=== PATIENT | female | born 1955 | race Caucasian/White ===

== ENCOUNTER → 2018-02-14 | Outpatient (CLI) | payer OTHER ==
--- NOTE | 2018-02-14 16:34 | CTL ---
EXAMINATION TYPE: CT Low Dose Lung DATE OF EXAM ORDERED: 02/14/2018 HISTORY: Long-term tobacco use. Lung cancer screening CT DLP: [address] CTDI: 1.76 mGy Automated exposure control for dose reduction was used. SCREENING VISIT: Initial study COMPARISON: Chest CT June 11, 2016 TECHNIQUE: Low dose computed tomography scan was performed through the chest at 1 mm thick sections and reconstructed images in the coronal plane at [address] DIAGNOSTIC QUALITY: Satisfactory FINDINGS: LUNG NODULES: None. LUNGS: COPD: Severity: Moderate Fibrosis: Severity: There is linear scarring in the right lower lobe redemonstrated Lymph nodes: None Other findings: None BILATERAL PLEURAL SPACE: Effusion: None Calcification: None Thickening: None Pneumothorax: None HEART: Heart Size: Normal Coronary calcification: None Pericardial effusion: None OTHER FINDINGS: Upper abdomen: No suspicious findings seen. Bony thorax: Persistent mild compression fracture deformity T12 level stable. Supraclavicular region: None Other: None IMPRESSION: Moderate emphysematous change without suspicious nodules. FOLLOW UP CT CHEST RECOMMENDATION: Annual low-dose lung screening CT CT LUNG RAD: Lung-Rad 1 Negative
== END | disposition home or self-care (01) ==
LOC: RADCTMAIN 16:03
PROVIDERS: ATTEND Internal Medicine Geriatric Medicine
DX: Z12.2 Encounter for screening for malignant neoplasm of respiratory organs (principal); J43.9 Emphysema, unspecified; Z87.891 Personal history of nicotine dependence

== ENCOUNTER 2018-09-07 22:00 | Emergency (ER) | payer OTHER ==
[2018-09-07 22:12] VITALS: BP 152/100; PULSE 78; RESP 16; TEMP 98.2
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
--- NOTE | 2018-09-07 22:33 | XR ---
EXAMINATION TYPE: XR foot complete LT DATE OF EXAM: 09/07/2018 COMPARISON: NONE HISTORY: Foot pain TECHNIQUE: 3 views FINDINGS: Metatarsals appear intact. I see no fracture nor dislocation. Joint spaces are fairly jerry l. IMPRESSION: No acute abnormality of the left foot.
== END 2018-09-07 22:51 | disposition home or self-care (01) ==
LOC: EC 22:00
DX: S90.32XA Contusion of left foot, initial encounter (principal); F17.200 Nicotine dependence, unspecified, uncomplicated; W20.8XXA Other cause of strike by thrown, projected or falling object, initial encounter
CPT/HCPCS: 99283

== ENCOUNTER 2022-03-20 18:31 | Inpatient (IN) | payer MEDICARE ==
--- NOTE | 2022-03-20 21:49 | XR ---
EXAMINATION TYPE: XR chest 2V DATE OF EXAM: 03/20/2022 9:08 PM COMPARISON: CT chest 02/14/2018. TECHNIQUE: XR chest 2V Frontal and lateral views of the chest. CLINICAL INDICATION:Female, 66 years old with history of shortness of breath, known right hilar mass; FINDINGS: Lungs/Pleura: There is flattening of the diaphragm with increased lucency of the lungs. No evidence o f pneumothorax, pleural effusion or focal consolidation. Pulmonary vascularity: Unremarkable. Heart/mediastinum: Cardiomediastinal silhouette is unremarkable. There is increased fullness of the r ight pulmonary hilum consistent with provided history of known mass. Musculoskeletal: No acute osseous pathology. IMPRESSION: 1. No acute cardiopulmonary disease process. 2. Right pulmonary hilum mass 3. COPD changes.
[2022-03-20 21:50] LABS: Basophils # (A) 0.1 k/uL (0-0.2); Basophils % (A) 1 %; Eosinophils # (A) 0.2 k/uL (0-0.7); Eosinophils % (A) 3 %; HGB 13.2 gm/dL (11.4-16.0); Lymphocytes # (A) 1.3 k/uL (1.0-4.8); Lymphocytes % (A) 16 %; MCH 31.6 pg (25.0-35.0); MCHC 31.4 g/dL (31.0-37.0); MCV 100.5 fL (80.0-100.0); Mean Platelet Volume 8.3; Monocytes # (A) 0.4 k/uL (0-1.0); Monocytes % (A) 5 %; Neutrophils # (A) 5.8 k/uL (1.3-7.7); Neutrophils % (A) 73 %; Platelet Count 294 k/uL (150-450); RBC 4.18 m/uL (3.80-5.40); RDW 12.1 % (11.5-15.5)
[2022-03-20 22:06] LABS: ALT 18 U/L (4-34); AST 33 U/L (14-36); African American GFR (CKD) >90 (>60 ml/min/1.73 sqM); Albumin 3.7 g/dL (3.5-5.0); Alkaline Phosphatase 102 U/L (38-126); Anion Gap 5 mmol/L; Blood Urea Nitrogen 13 mg/dL (7-17); Calcium 9.2 mg/dL (8.4-10.2); Carbon Dioxide 28 mmol/L (22-30); Chloride 104 mmol/L (98-107); Glucose 92 mg/dL (74-99); Magnesium 2.1 mg/dL (1.6-2.3); Non-African American GFR(CKD) >90 (>60 ml/min/1.73 sqM); Phosphorus 3.3 mg/dL (2.5-4.5); Potassium 4.4 mmol/L (3.5-5.1); Sodium 137 mmol/L (137-145); Total Bilirubin 0.7 mg/dL (0.2-1.3); Total Protein 6.8 g/dL (6.3-8.2)
--- NOTE | 2022-03-20 22:52 | ED ---
SOB HPI - General Chief Complaint: Recheck/Abnormal Lab/Rx Stated Complaint: Refered Mass on Lungs Time Seen by Provider: 03/20/22 20:10 Source: patient, family, RN notes reviewed Mode of arrival: wheelchair Limitations: no limitations - History of Present Illness Initial Comments: This is a 66-year-old female who presents to the emergency department with shortness of breath and mass in her lung. She was recently in [place] and went to the emergency department there on 03/18 for generalized weakness and shortness of breath. Workup revealed a mediastinal mass with concern for the development of SVC syndrome. They had advised she either staying in [place] for admission or return to [place] for evaluation in the emergency department. She returned from [place] yesterday. Patient states that breathing is difficult when lying down. She does also get daily headaches that she treats with oxycodone. CT Chest w/contrast 03/18/2022 (taken in [place]): "There is a hilar mass that is infiltrating nearly the entire mediastinum. The mass is encasing multiple vessels primarily on the right. The right upper lobe as well as the bronchus intermedius is narrowed significantly. The mass does extend to the left side and encases the pulmonary veins. There is significant compression of the collateral vessels concerning for development of superior vena cava syndrome." MD Complaint: shortness of breath, cough Worsens With: lying flat - Related Data Home Medications Medication Instructions Recorded Confirmed HYDROcodone/APAP 5-325MG [[place] 1 tab PO Q6H PRN 03/20/22 03/20/22 5-325] Allergies Allergy/AdvReac Type Severity Reaction Status Date / Time No Known Allergies Allergy Verified 03/20/22 22:13 Review of Systems ROS Statement: Those systems with pertinent positive or pertinent negative responses have been documented in the HPI. ROS Other: All systems not noted in ROS Statement are negative. Constitutional: Denies: fever, chills ENT: Denies: ear pain, throat pain Respiratory: Reports: cough, dyspnea Cardiovascular: Denies: chest pain, palpitations Endocrine: Reports: fatigue Gastrointestinal: Denies: abdominal pain, nausea, vomiting, diarrhea Musculoskeletal: Denies: back pain Skin: Denies: rash Neurological: Reports: headache Past Medical History Past Medical History: No Reported History Additional Past Medical History / Comment(s): lung mass History of Any Multi-Drug Resistant Organisms: None Reported Additional Past Surgical History / Comment(s): ovary removed Past Psychological History: No Psychological Hx Reported Smoking Status: Current every day smoker Past Alcohol Use History: Occasional Past Drug Use History: None Reported General Exam Limitations: no limitations General appearance: alert, in no apparent distress Neck exam: Present: other (Prominent neck veins.) Respiratory exam: Present: normal lung sounds bilaterally, other (Prominent chest veins.). Absent: respiratory distress, wheezes, rales, rhonchi, stridor Cardiovascular Exam: Present: regular rate, normal rhythm, normal heart sounds. Absent: systolic murmur, diastolic murmur, rubs, gallop, clicks GI/Abdominal exam: Present: other (Diffuse prominent abdominal veins) Neurological exam: Present: alert, oriented X3, CN II-XII intact Psychiatric exam: Present: normal affect, normal mood Skin exam: Present: warm, dry, intact, normal color. Absent: rash Course Vital Signs 03/20/22 19:10 Temperature 98.8 F Pulse Rate 82 Respiratory 16 Rate Blood Pressure 127/81 O2 Sat by Pulse 96 Oximetry Medical Decision Making - Medical Decision Making This is a 66-year-old female who presents to the emergency department for a known lung mass. CBC and CMP obtained which were unremarkable. Chest x-ray did not demonstrate any changes from the [place] imaging that was taken 2 days ago. Given the prominence of neck, chest, and abdominal veins, the shortness of breath, and headaches, there is concern for SVC syndrome, which was mentioned on prior computed tomography scan of the chest from 03/18. I spoke with Dr. Cooper regarding the patient. He advised I speak with Dr. Luque regarding admission versus discharge for the patient. Dr. Luque advised admission and requested repeat imaging of the chest and imaging of the brain, as well as oncology and pu lmonary consult. This case was discussed in detail with the attending ED physician. Presentation, findings, and treatment plan discussed in detail as well. - Lab Data Result diagrams: 03/20/22 21:43 03/20/22 21:43 Lab Results 03/20/22 03/20/22 03/20/22 Range/Units 21:43 21:43 21:43 WBC 8.0 (3.8-10.6) k/uL RBC 4.18 (3.80-5.40) m/uL Hgb 13.2 (11.4-16.0) gm/dL Hct 42.0 (34.0-46.0) % MCV 100.5 H (80.0-100.0) fL MCH 31.6 (25.0-35.0) pg MCHC 31.4 (31.0-37.0) g/dL RDW 12.1 (11.5-15.5) % Plt Count 294 (150-450) k/uL MPV 8.3 Neutrophils % 73 % Lymphocytes % 16 % Monocytes % 5 % Eosinophils % 3 % Basophils % 1 % Neutrophils # 5.8 (1.3-7.7) k/uL Lymphocytes # 1.3 (1.0-4.8) k/uL Monocytes # 0.4 (0-1.0) k/uL Eosinophils # 0.2 (0-0.7) k/uL Basophils # 0.1 (0-0.2) k/uL Sodium 137 (137-145) mmol/L Potassium 4.4 (3.5-5.1) mmol/L Chloride 104 (98-107) mmol/L Carbon Dioxide 28 (22-30) mmol/L Anion Gap 5 mmol/L BUN 13 (7-17) mg/dL Creatinine 0.62 (0.52-1.04) mg/dL Est GFR (CKD-EPI)AfAm >90 (>60 ml/min/1.73 sqM) Est GFR (CKD-EPI)NonAf >90 (>60 ml/min/1.73 sqM) Glucose 92 (74-99) mg/dL Plasma Lactic Acid [place] 1.5 (0.7-2.0) mmol/L Calcium 9.2 (8.4-10.2) mg/dL Phosphorus 3.3 (2.5-4.5) mg/dL Magnesium 2.1 (1.6-2.3) mg/dL Total Bilirubin 0.7 (0.2-1.3) mg/dL AST 33 (14-36) U/L ALT 18 (4-34) U/L Alkaline Phosphatase 102 (38-126) U/L Total Protein 6.8 (6.3-8.2) g/dL Albumin 3.7 (3.5-5.0) g/dL - Radiology Data Radiology results: report reviewed, image reviewed Disposition Clinical Impression: SVC syndrome, Hilar mass Disposition: ADMITTED IP TO THIS [facility] Referrals: Stephan Luque MD [Primary Care Provider] - 1-2 days
[2022-03-20] MEDS ORDERED: ONDANSETRON 4 MG/2 ML VIAL IVP PRN (23:40)
[2022-03-20] MEDS ORDERED: ACETAMINOPHEN TAB 325 MG TAB PO PRN (23:40)
[2022-03-20] MEDS ORDERED: NALOXONE 0.4 MG/ML 1 ML VIAL IV PRN (23:40)
[2022-03-20] MEDS ORDERED: HYDROmorphone 1 MG/ML 1 ML SYRINGE IVP PRN (23:40)
[2022-03-20] MEDS ORDERED: KETOROLAC 15 MG/ML 1 ML VIAL IVP STA (23:43)
[2022-03-20] MEDS ORDERED: RX INFO: IV CONTRAST WAS GIVEN 1 EACH MISC MISCELLANE PRN (23:45)
--- NOTE | 2022-03-21 00:33 | CT ---
EXAMINATION TYPE: CT chest w con DATE OF EXAM: 03/21/2022 COMPARISON: 03/18/2022 HISTORY: Lung Mass CT DLP: 164.4 mGycm Automated exposure control for dose reduction was used. CONTRAST: Performed with IV Contrast, patient injected with 100ml mL of Isovue 300. Images obtained from the thoracic inlet to the diaphragm without IV contrast. There is diffuse pulmonary emphysema. There is large mediastinal and right paratracheal mass which me asures 7 x 6.5 cm. The length is 9.5 cm. There are collateral veins with apparent complete obstructio n of the superior vena cava. There is posterior paraspinal veins filling the azygos vein. There is so me encasement of the right pulmonary artery. The thoracic aorta is intact. No aneurysm or dissection. Ascending aorta measures 3.6 cm. There is a 3 x 2 cm masslike infiltrate at the right posterior lung base. There is mild subsegmental atelectasis at the lung bases. Heart size is normal. No pericardial effusion. The thoracic vertebra have normal alignment. There is a T12 anterior wedging 35% that appears old. Th e sternum is intact. No evidence of filling defect in the pulmonary arteries. I see no focal bone angel truction. IMPRESSION: Large mediastinal mass encasing the right pulmonary artery and complete obstruction of the superior v shy cava. Collateral venous drainage. Mass extends into the subcarinal region and superiorly to the t op of the aortic arch. No evidence of pulmonary embolism. Mass is not changed compared to recent exam . There is some oval-shaped infiltrate right lower lobe posteriorly which is increased compared to the recent exam of 03/18/2022 and could be some atelectasis or pneumonia. Pulmonary emphysema.
--- NOTE | 2022-03-21 00:36 | CT ---
EXAMINATION TYPE: CT brain w con DATE OF EXAM: 03/21/2022 COMPARISON: 11/07/2012 HISTORY: Lung mass CT DLP: 1080.4 mGycm Automated exposure control for dose reduction was used. CONTRAST: Performed with IV Contrast, patient injected with 100 mL of Isovue 300. Ventricles have fairly normal size. There is no mass effect or midline shift. There is no sign of int racranial hemorrhage. There is no pathologic enhancement. There is a small corpus callosum. No eviden ce of posterior fossa mass. 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 No acute intracranial abnormality. No c hange.
[2022-03-21] MEDS ORDERED: HYDROcodone/APAP 5-325MG 1 EACH TAB PO PRN (06:01)
--- NOTE | 2022-03-21 10:37 | P.CNPUL ---
History of Present Illness Consult date: 03/21/22 Requesting physician: Stephan Luque Reason for consult: dyspnea, abnormal CXR/CT Chief complaint: Shortness of breath, chest pain History of present illness: This is a very pleasant 66-year-old female patient who follows with Dr. Luque as her primary care provider. She has no significant past medical history. No home medications. She does have chronic and ongoing tobacco dependence of 50 years, occasional alcohol use. While in [place] she developed shortness of breath and chest discomfort and was seen in the emergency room and a computed tomography scan of the chest revealed a large mediastinal mass and concern for SVC syndrome. She chose to come home to [place] for further evaluation. She was seen in the emergency room last evening. Chest x-ray revealed no acute cardiopulmonary process. There is a right pulmonary hilar mass. COPD changes. 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 Collateral venous drainage. Mass extends into the subcarinal region and superiorly to the top of the aortic arch. No evidence of pulmonary embolism. There is some oval shaped infiltrate at the right lower lobe posteriorly could be atelectasis versus pneumonia. Evidence of emphysema. Computed tomography scan of the brain reveals evidence of partial agenesis of th e corpus callosum. No acute intracranial abnormalities. No evidence of metastasis. White count 8.0. Hemoglobin 13.2. MCV 100.5. Sodium 137. Potassium 4.4. BUN 13. Creatinine 0.62. AST 33. ALT 18. The patient is seen today in consultation in the emergency department. She is currently sitting up in bed. Awake and alert in no acute distress. She does have some chest tightness more so on deep inhalation. She has engorged veins of the abdomen and chest and neck. She is maintaining good O2 saturations in the 90s on room air. She's been afebrile. She does admit to approximately 20 pound weight loss in the past year or more so on the past several months. She denies any hemoptysis. Review of Systems REVIEW OF SYSTEMS: CONSTITUTIONAL: Denies any recent significant weight loss or weight gain. EYES: Denies change in vision. EARS, NOSE, MOUTH, THROAT: Denies headaches, denies sore throat. CARDIOVASCULAR: Positive for chest tightness, no palpitations or syncopal episodes. RESPIRATORY: Positive for shortness of breath, cough, no congestion or hemoptys is. GASTROINTESTINAL: Denies change in appetite, denies abdominal pain GENITOURINARY: Denies hematuria, denies infections. MUSKULOSKELETAL: Denies pain, denies swelling. INTEGUMENTARY: Positive for engorged veins on the neck, chest, abdomen. Denies rash, denies eczema. NEUROLOGICAL: Denies recent memory loss, no recent seizure activity. PSYCHIATRIC: Denies anxiety, denies depression. HEMATOLOGIC/LYMPHATIC: Denies anemia, denies enlarged lymph nodes. Past Medical History Past Medical History: No Reported History Additional Past Medical History / Comment(s): lung mass History of Any Multi-Drug Resistant Organisms: None Reported Additional Past Surgical History / Comment(s): ovary removed Past Psychological History: No Psychological Hx Reported Smoking Status: Current every day smoker Past Alcohol Use History: Occasional Past Drug Use History: None Reported Medications and Allergies Home Medications Medication Instructions Recorded Confirmed Type HYDROcodone/APAP 5-325MG [[place] 1 tab PO Q6H PRN 03/20/22 03/20/22 History 5-325] DULoxetine HCL [Cymbalta] 30 mg PO DAILY 03/21/22 03/21/22 History busPIRone HCl [Buspar] 10 mg PO BID 03/21/22 03/21/22 History Allergies Allergy/AdvReac Type Severity Reaction Status Date / Time No Known Allergies Allergy Verified 03/20/22 22:13 Physical Exam Vitals: Vital Signs Temp Pulse Resp BP Pulse Ox 03/21/22 06:32 63 18 133/83 98 03/21/22 00:48 97.8 F 84 16 130/81 94 L 03/20/22 19:10 98.8 F 82 16 127/81 96 Intake and Output 03/20/22 03/21/22 03/21/22 22:59 06:59 14:59 Other: Weight 39.009 kg GENERAL EXAM: Alert, active, very pleasant 66-year-old female patient, on room air, fairly comfortable in no apparent distress. HEAD: Normocephalic. EYES: Normal reaction of pupils, equal size. NOSE: Clear with pink turbinates. THROAT: No erythema or exudates. NECK: Engorged neck veins. CHEST: Engorged chest veins. No chest wall deformity. LUNGS: Equal air entry with no crackles, wheeze, rhonchi or dullness. CVS: S1 and S2 normal with no audible murmur, regular rhythm. ABDOMEN: Engorged abdominal veins. No hepatosplenomegaly, normal bowel sounds, no guarding or rigidity. SPINE: No scoliosis or deformity SKIN: No rashes CENTRAL NERVOUS SYSTEM: No focal deficits, tone is normal in all 4 extremities. EXTREMITIES: There is no peripheral edema. No clubbing, no cyanosis. Peripheral pulses are intact. 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 Collateral venous drainage. Mass extends into the subcarinal region and superiorly to the top of the aortic arch. No pulmonary embolism. Oval-shaped infiltrate of the right lower lobe posteriorly possible atelectasis. 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, chest and abdominal veins 3 Chronic and ongoing dependence of 50 years 4 Occasional alcohol use 5 Weight loss Plan: The patient was seen and evaluated Chest x-ray, CAT scans and labs reviewed Suspect small cell lung cancer Bronchoscopy with biopsies and fine-needle aspirate tomorrow Plan was discussed in detail with both the patient and her family who is present at the bedside Initiated on Decadron Heparin for DVT prophylaxis Dilaudid, Toradol for pain control Protonix for GI prophylaxis Nothing by mouth after midnight Possibly home after biopsies tomorrow We will continue to follow make further recommendations based on her clinical status I have personally seen and examined the patient, performed the documentation and the assessment and plan as written. Number of minutes spent on the visit: 20.
--- NOTE | 2022-03-21 10:48 | P.HPIM ---
History of Present Illness H&P Date: 03/21/22 HISTORY OF PRESENT ILLNESS This is a 66-year-old female patient of Dr. Luque with past medical history of COPD, tobacco use and dependence, recurrent depression and generalized anxiety disorder. In January 2018, patient underwent low-dose CAT scan which revealed moderate emphysematous change without suspicious nodules. Patient was to have a repeat of this but due to Covid she failed to follow-up. She is now in [place] for the past 4 months and started developing significant pain in her chest and shoulders along with a dry cough, headache, right-sided earache as well as nausea and diarrhea. She went to a clinic in [place] and was told that she had a mass in her lungs and that she needed to get into specialist as soon as possible. On Saturday she went to the emergency center and underwent a CAT scan of the chest and was told that she had cancer in her lung and wanted to admit the patient but she refused as she preferred to return home to see her own physician. Patient also has had 10 pounds of weight loss over the past month. She has also developed "varicose veins" through her abdomen and chest. Patient presented to [facility] emergency center for evaluation. Patient was found to be afebrile, heart rate 82, blood pressure 127/81, pulse ox 96% on room air. CBC was unremarkable. CMP unremarkable. Magnesium 2.1. Chest x-ray revealed no acute cardio pulmonary disease process. Right pulmonary hilum mass. COPD changes. 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 No acute intracranial abnormality. 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 Collateral venous drainage. Mass extends into the subcarinal region and superiorly to the top of the aortic arch. No evidence of pulmonary embolism. There is some oval shaped infiltrate right lower lobe serially which is increased compared to 03/18 a nd could be some atelectasis or pneumonia. Patient is seen today in the emergency center waiting for a bed on the [facility] floor, consult with pulmonary medicine and oncology. Patient is scheduled for bronchoscopy with biopsy with Dr. Figueroa tomorrow. REVIEW OF SYSTEMS Constitutional: No fever, no chills, no night sweats. Reports weight loss. Reports weakness, reports fatigue no lethargy. No daytime sleepiness. EENT: No headache. No blurred vision or double vision, no loss of vision. No loss of Hearing, no ringing in the ears, no dizziness. No nasal drainage or congestion. No epistaxis. No sore throat. Lungs: Reports shortness of breath, reports cough, no sputum production. No wheezing. Cardiovascular: Reports chest pain, no lower extremity edema. No palpitations. No paroxysmal nocturnal dyspnea. No orthopnea. No lightheadedness or dizziness. No syncopal episodes. Abdominal: No abdominal pain. Reports nausea, no vomiting. Reports diarrhea. No constipation. No bloody or tarry stools. No loss of appetite. Genitourinary: No dysuria, increased frequency, urgency. No urinary retention. Musculoskeletal: No myalgias. No muscle weakness, no gait dysfunction, no frequent falls. No back pain. No neck pain. Integumentary: No wounds, no lesions. No rash or pruritus. No unusual bruising. No change in hair or nails. Neurologic: No aphasia. No facial droop. No change in mentation. No head injury. No headache. No paralysis. No paresthesia. Psychiatric: No depression. No anxiety. No mood swings. Endocrine: No abnormal blood sugars. No weight change. No excessive sweating or thirst. No cold intolerance. SOCIAL HISTORY Patient is a smoker of half a pack a day for 50 years plus. She drinks alcohol couple times per week. She denies any marijuana or illicit drug use. She does not have oxygen, nebulizer at home. FAMILY HISTORY Mother at age 94 from old age. Father at age 89 with history of COPD and coronary artery disease. Patient has 6 siblings and one brother from acute alcohol poisoning. One sister was diagnosed with myocardial infarction at age 67 otherwise other siblings have no major medical problems. Patient has one son with no major medical problems. PHYSICAL EXAMINATION Gen: This is a 66-year-old cachectic-appearing female. She is resting in the ER stretcher and appears to be in no acute respiratory distress. HEENT: Head is atraumatic, normocephalic. Pupils equal, round. Sclerae is anicteric. NECK: Supple. No JVD. No lymphadenopathy. No thyromegaly. LUNGS: Clear to auscultation. No wheezes or rhonchi. No intercostal retractions. No accessory muscle usage. HEART: Regular rate and rhythm. No murmur. Engorged veins throughout the chest and abdomen. ABDOMEN: Soft. Bowel sounds are present. No masses. No tenderness. EXTREMITIES: No pedal edema. No calf tenderness. NEUROLOGICAL: Patient is awake, alert and oriented x3. Cranial nerves 2 through 12 are grossly intact. ASSESSMENT AND PLAN 1. Large mediastinal mass encasing the right pulmonary artery and complete o bstruction of the superior vena cava. Patient is scheduled for bronchoscopy with biopsy tomorrow. Consult with oncology. Patient's been started on Decadron 6 kg IV push every 8 hours, continue Dilaudid or [place] as needed for pain. 2. 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 3. Severe protein calorie malnutrition with recent weight loss and BMI 14. Regular diet plus Ensure twice daily 4. Active tobacco use and dependence. Smoking cessation. 5. GI prophylaxis. Protonix. 6. DVT prophylaxis. Heparin subcu. Patient will be admitted to the hospital for a minimum of 2 night stay. DISCHARGE PLAN TBD. Most likely return home Impression and plan of care have been directed as dictated by the signing physician. Luiza Lewis nurse practitioner acting as scribe for signing physician. Past Medical History Past Medical History: No Reported History Additional Past Medical History / Comment(s): lung mass History of Any Multi-Drug Resistant Organisms: None Reported Additional Past Surgical History / Comment(s): ovary removed Past Psychological History: No Psychological Hx Reported Smoking Status: Current every day smoker Past Alcohol Use History: Occasional Past Drug Use History: None Reported - Past Family History Sister(s) Family Medical History: Myocardial Infarction ([place]) Additional Family Medical History / Comment(s): Sister had a MD at the age of 67yrs. Mother Family Medical History: No Reported History Additional Family Medical History / Comment(s): Mother lived to be 94 yrs old. She was a smoker. Father Family Medical History: Chest Pain / Angina Additional Family Medical History / Comment(s): Father had breathing problems. He lived to be 89yrs old. Medications and Allergies Home Medications Medication Instructions Recorded Confirmed Type HYDROcodone/APAP 5-325MG [[place] 1 tab PO Q6H PRN 03/20/22 03/20/22 History 5-325] DULoxetine HCL [Cymbalta] 30 mg PO DAILY 03/21/22 03/21/22 History busPIRone HCl [Buspar] 10 mg PO BID 03/21/22 03/21/22 History Allergies Allergy/AdvReac Type Severity Reaction Status Date / Time No Known Allergies Allergy Verified 03/20/22 22:13 Physical Exam Vitals: Vital Signs Temp Pulse Resp BP Pulse Ox 03/21/22 06:32 63 18 133/83 98 03/21/22 00:48 97.8 F 84 16 130/81 94 L 03/20/22 19:10 98.8 F 82 16 127/81 96 Intake and Output 03/20/22 03/21/22 03/21/22 22:59 06:59 14:59 Other: Weight 39.009 kg Results CBC & Chem 7: 03/20/22 21:43 03/20/22 21:43 Labs: Abnormal Lab Results - Last 24 Hours (Table) 03/20/22 Range/Units 21:43 MCV 100.5 H (80.0-100.0) fL
--- NOTE | 2022-03-21 11:28 | P.CONS ---
History of Present Illness - Reason for Consult Consult date: 03/21/22 Lung mass Requesting physician: Hilary Bettencourt - Chief Complaint Shortness of breath, chest/neck fullness - History of Present Illness Mrs. Meyer is a very pleasant 66-year-old female we have been asked to see for newly diagnosed lung mass. Patient was initially seen in [place] when her symptoms of shortness of breath and dry cough increased in severity. Misa baptiste lives here so she has returned and came to the ER at the recommendation of ER in [place]. Patient states she's had symptoms for about 2-3 months, consisting of shortness of breath, harsh dry cough, these have persistent and progressed. More recently she has also noted 10 pounds wt loss in one month, occasional dysphagia, voice changes and engorgement of the blood vessels in her chest and abdomen. She's also been experiencing nearly headaches, denies any dizziness or vision changes. Reporting fullness in the right side of the neck, pain in the right shoulder area. She is a half pack per day smoker currently, she denies any exposure history such as asbestos or occupation with use of hazardous materials could be inhaled. Past medical history is otherwise benign. Review of Systems 14 point review of systems is negative except as stated in HPI Past Medical History Past Medical History: No Reported History Additional Past Medical History / Comment(s): lung mass History of Any Multi-Drug Resistant Organisms: None Reported Past Surgical History: Orthopedic Surgery Additional Past Surgical History / Comment(s): ovary removed Past Anesthesia/Blood Transfusion Reactions: No Reported Reaction Past Psychological History: Depression (On medications for) Smoking Status: Current every day smoker (1/2 pack per day) Past Alcohol Use History: Occasional Past Drug Use History: None Reported - Past Family History Sister(s) Family Medical History: Myocardial Infarction ([place]) Additional Family Medical History / Comment(s): Sister had a [place] at the age of 67yrs. Mother Family Medical History: No Reported History Additional Family Medical History / Comment(s): Mother lived to be 94 yrs old. She was a smoker. Father Family Medical History: Chest Pain / Angina Additional Family Medical History / Comment(s): Father had breathing problems. He lived to be 89yrs old. Medications and Allergies Home Medications Medication Instructions Recorded Confirmed Type HYDROcodone/APAP 5-325MG [[place] 1 tab PO Q6H PRN 05/03/22 05/03/22 History 5-325] DULoxetine HCL [Cymbalta] 30 mg PO DAILY 03/21/22 03/21/22 History Dexamethasone 6 mg PO Q8H #90 tablet 03/21/22 Rx busPIRone HCl [Buspar] 10 mg PO BID 03/21/22 03/21/22 History Allergies Allergy/AdvReac Type Severity Reaction Status Date / Time No Known Allergies Allergy Verified 03/20/22 22:13 Physical Exam Vitals: Vital Signs Temp Pulse Resp BP Pulse Ox 03/21/22 06:32 63 18 133/83 98 03/21/22 00:48 97.8 F 84 16 130/81 94 L 03/20/22 19:10 98.8 F 82 16 127/81 96 Intake and Output 03/20/22 03/21/22 03/21/22 22:59 06:59 14:59 Other: Weight 39.009 kg 39.009 kg - Constitutional General appearance: cooperative, no acute distress, thin - EENT Eyes: anicteric sclerae, EOMI ENT: hearing grossly normal, normal oropharynx - Neck Neck: lymphadenopathy (Palpable mass in the right supraclavicular area) - Respiratory Respiratory: right: diminished, bilateral: other (Scattered rhonchi) - Cardiovascular The veins of the chest and abdomen are engorged Rhythm: regular Heart sounds: normal: S1, S2 Abnormal Heart Sounds: no systolic murmur, no diastolic murmur, no rub, no S3 Gallop, no S4 Gallop, no click, no other leg Peripheral Edema: bilateral: None - Gastrointestinal General gastrointestinal: no absent bowel sounds, no decreased bowel sounds, no distended, no hepatomegaly, no hyperactive bowel sounds, normal bowel sounds, no organomegaly, no rigid, no scaphoid, soft, no splenomegaly, no tenderness, no umbilical hernia, no ventral hernia - Neurologic Neurologic: CNII-XII intact (Grossly) - Musculoskeletal Musculoskeletal: strength equal bilaterally - Psychiatric Psychiatric: A&O x's 3, appropriate affect, intact judgment & insight Results CBC & Chem 7: 03/20/22 21:43 03/20/22 21:43 Labs: Abnormal Lab Results - Last 24 Hours (Table) 03/20/22 Range/Units 21:43 MCV 100.5 H (80.0-100.0) fL Chest x-ray: report reviewed CT scan - chest: report reviewed CT Scan - head: report reviewed (Without contrast) Assessment and Plan (1) Hilar mass Current Visit: Yes Status: Acute Priority: High Code(s): R91.8 - OTHER NONSPECIFIC ABNORMAL FINDING OF LUNG FIELD SNOMED Code(s): 107019251 (2) SVC syndrome Current Visit: Yes Status: Acute Priority: High Code(s): I87.1 - COMPRESSION OF VEIN SNOMED Code(s): 96327144 Plan: Dr. Alcala discussed with the patient concerning findings for malignancy. I explained that tissue biopsy is necessary for diagnosis. Imaging will also be required to show the extent of disease. Once these things are known, plan of care can be discussed with patient. Patient has been started on dexamethasone 6 mg IV every 8. Oral steroids will continue in the outpatient setting. PPI, prophylaxis steroid-induced gastritis. Pulmonary has been consulted for biopsy. MRI of the brain ordered for lung mass and complaints of daily headaches. Plan for staging PET scan outpatient. Follow-up with Dr. Alcala Informed patient that we will be contacting her with further appointments. Doctor attests: I performed a history and physical examination of this patient, developed impression and plan of care. Discussed with dictator. I agree with dictators note, documented as a scribe.
[2022-03-21] MEDS: HEPARIN SODIUM,PORCINE/PF 5,000 UNIT/0.5 ML SYRINGE SQ SCH ×2 (11:35→20:13)
[2022-03-21] MEDS: PANTOPRAZOLE 40 MG TABLET PO SCH (11:35)
[2022-03-21] MEDS: DEXAMETHASONE SOD PHOSPHATE 10 MG/ML 1 ML VIAL IVP SCH ×3 (11:36→20:12)
--- NOTE | 2022-03-21 15:01 | MR ---
EXAMINATION TYPE: MR brain wo/w con DATE OF EXAM: 03/21/2022 2:50 PM COMPARISON: NONE HISTORY: Headaches, lung mass. CONTRAST: Patient received 4 mL intravenous Gadavist gadolinium contrast. Multiplanar and multispin-echo imaging of the brain was performed . Pre and post contrast enhanced i mages are obtained. The ventricles, basal cisterns and sulci overlying the cerebral convexities are mildly enlarged. There is evidence of moderate periventricular white matter ischemic demyelination. There is mixed si gnal noted within the petar compatible with multiple small foci of remote insult. On diffusion weighte d imaging image 10 there is a tiny punctate focus of increased signal which could reflect a recent ti ny vascular insult Remote deep white matter insults are also noted. No acute cortical edema is seen on diffusion weighted imaging. There is no evidence for midline shift or mass effect. Acute intracranial hemorrhage or extra-axial collection is not evident. No enhancing lesions are seen. The paranasal sinuses and mastoid air cells are well-aerated. IMPRESSION: 1. Age-related atrophic and chronic small vessel ischemic change. No acute intracranial process at this time. 2. No enhancing lesions are seen. 3. There is mixed signal noted within the petar compatible with multiple small foci of remote insult. On diffusion weighted imaging image 10 there is a tiny punctate focus of increased signal which coul d reflect a recent tiny vascular insult
[2022-03-21] MEDS: HYDROmorphone 0.5 MG/0.5 ML SYRINGE IVP PRN (15:35)
[2022-03-22] MEDS: DEXAMETHASONE SOD PHOSPHATE 10 MG/ML 1 ML VIAL IVP SCH ×2 (04:22→12:58)
[2022-03-22] MEDS: PANTOPRAZOLE 40 MG TABLET PO SCH (07:44)
[2022-03-22] MEDS: HEPARIN SODIUM,PORCINE/PF 5,000 UNIT/0.5 ML SYRINGE SQ SCH (07:44)
[2022-03-22] MEDS: HYDROmorphone 0.5 MG/0.5 ML SYRINGE IVP PRN (09:13)
--- NOTE | 2022-03-22 10:47 | P.DS ---
Providers Date of admission: 03/21/22 12:24 Expected date of discharge: 03/22/22 Attending physician: Stephan Luque Consults: 03/20/22 23:41 Consult Physician Urgent Consulting Provider: Camilla Figueroa Consult Reason/Comments: hilar mass, SVC syndrome Do you want consulting provider notified?: Yes Consult Physician Urgent Consulting Provider: Isma Alcala Consult Reason/Comments: Large hilar mass Do you want consulting provider notified?: Yes Primary care physician: Stephan Luque [facility] Course: HISTORY OF PRESENT ILLNESS This is a 66-year-old female patient of Dr. Luque with past medical history of COPD, tobacco use and dependence, recurrent depression and generalized anxiety disorder. In January 2018, patient underwent low-dose CAT scan which revealed moderate emphysematous change without suspicious nodules. Patient was to have a repeat of this but due to Covid she failed to follow-up. She is now in [place] for the past 4 months and started developing significant pain in her chest and shoulders along with a dry cough, headache, right-sided earache as well as nausea and diarrhea. She went to a clinic in [place] and was told that she had a mass in her lungs and that she needed to get into specialist as soon as possible. On Saturday she went to the emergency center and underwent a CAT scan of the chest and was told that she had cancer in her lung and wanted to admit the patient but she refused as she preferred to return home to see her own physician. Patient also has had 10 pounds of weight loss over the past month. She has also developed "varicose veins" through her abdomen and chest. Patient presented to [facility] emergency center for evaluation. Patient was found to be afebrile, heart rate 82, blood pressure 127/81, pulse ox 96% on room air. CBC was unremarkable. CMP unremarkable. Magnesium 2.1. Chest x-ray revealed no acute cardio pulmonary disease process. Right pulmonary hilum mass. COPD changes. 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 No acute intracranial abnormality. 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 Collateral venous drainage. Mass extends into the subcarinal region and superiorly to the top of the aortic arch. No evidence of pulmonary embolism. There is some oval shaped infiltrate right lower lobe serially which is increased compared to 03/18 and could be some atelectasis or pneumonia. Patient is seen today in the emergency center waiting for a bed on the [facility] floor, consult with pulmonary medicine and oncology. Patient is scheduled for bronchoscopy with biopsy with Dr. Figueroa tomorrow. 03/22: Patient is scheduled for bronchoscopy today with Dr. Figueroa. Discussed smoking cessation with the patient and she is agreeable to try nicotine patch and plan to stop smoking. Patient will be discharged home today after bronch oscopy with plan to follow-up in the office for pathology report. MRI of the brain revealed age-related atrophy and chronic small vessel ischemic change. No acute intracranial process. No enhancing lesions. Patient discharged home today in stable condition. 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 2. 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 3. Severe protein calorie malnutrition with recent weight loss and BMI 14. 4. Active tobacco use and dependence. DISCHARGE PLAN home Greater than 35 minutes was utilized and coordinating patient's discharge. Impression and plan of care have been directed as dictated by the signing physician. Luiza Lewis nurse practitioner acting as scribe for signing physician. Patient Condition at Discharge: Stable Plan - Discharge Summary Discharge Rx Participant: No New Discharge Prescriptions: New Dexamethasone 6 mg PO Q8H #90 tablet Pantoprazole [Protonix] 40 mg PO BID #60 tab Nicotine 14Mg/24Hr Patch [Habitrol] 1 patch TRANSDERM DAILY #30 patch Continue HYDROcodone/APAP 5-325MG [[place] 5-325] 1 tab PO Q6H PRN PRN Reason: Pain busPIRone HCl [Buspar] 10 mg PO BID DULoxetine HCL [Cymbalta] 30 mg PO DAILY Discharge Medication List HYDROcodone/APAP 5-325MG [[place] 5-325] 1 tab PO Q6H PRN 03/20/22 [History] DULoxetine HCL [Cymbalta] 30 mg PO DAILY 03/21/22 [History] Dexamethasone 6 mg PO Q8H #90 tablet 03/21/22 [Rx] Pantoprazole [Protonix] 40 mg PO BID #60 tab 03/21/22 [Rx] busPIRone HCl [Buspar] 10 mg PO BID 03/21/22 [History] Nicotine 14Mg/24Hr Patch [Habitrol] 1 patch TRANSDERM DAILY #30 patch 03/22/22 [Rx] Follow up Appointment(s)/Referral(s): Camilla Figueroa MD [STAFF PHYSICIAN] - 1 Week (Lung doctor patient will have to call and make own appointment with Dr. Figueroa - office is [facility] for the day) Isma Alcala MD [STAFF PHYSICIAN] - 2 Weeks (Oncologist Office will call patient with appointment date and time) Stephan Luque MD [Primary Care Provider] - 03/29/22 1:45 pm () Patient Instructions/Handouts: Nicotine (Absorbed through the skin), Dexamethasone (By mouth), Pantoprazole (By mouth), Needle Biopsy of the Lung (DC) Discharge Disposition: HOME SELF-CARE
--- NOTE | 2022-03-22 11:28 | P.PN ---
Subjective Progress Note Date: 03/22/22 This is a very pleasant 66-year-old female patient who follows with Dr. Luque as her primary care provider. She has no significant past medical history. No home medications. She does have chronic and ongoing tobacco dependence of 50 years, occasional alcohol use. 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 She chose to come home to [place] for further evaluation. She was seen in the emergency room last evening. Chest x-ray revealed no acute cardiopulmonary process. There is a right pulmonary hilar mass. COPD changes. 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 Collateral venous drainage. Mass extends into the subcarinal region and superiorly to the top of the aortic arch. No evidence of pulmonary embolism. There is some oval shaped infiltrate at the right lower lobe posteriorly could be atelectasis versus pneumonia. Evidence of emphysema. 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 No acute intracranial abnormalities. No evidence of metastasis. White count 8.0. Hemoglobin 13.2. MCV 100.5. Sodium 137. Potassium 4.4. BUN 13. Creatinine 0.62. AST 33. ALT 18. The patient is seen today in consultation in the emergency department. She is currently sitting up in bed. Awake and alert in no acute distress. She does have some chest tightness more so on deep inhalation. She has engorged veins of the abdomen and chest and neck. She is maintaining good O2 saturations in the 90s on room air. She's been afebrile. She does admit to approximately 20 pound weight loss in the past year or more so on the past several months. She denies any hemoptysis. The patient is seen today 03/22/2022 in follow-up on the regular medical floor. She is currently sitting up at the bedside. Awake and alert in no acute distress. She is maintaining O2 saturations in the 90s on room air. She's afebrile. Hemodynamically stable. MRI of the brain revealed no enhancing lesions. No acute intracranial process. She is continued on Decadron. Plan is for bronchoscopy with biopsies today. Objective - Vital Signs Vital signs: Vital Signs Temp 97.7 F 03/22/22 05:00 Pulse 85 03/22/22 05:00 Resp 16 03/22/22 05:00 BP 140/92 03/22/22 05:00 Pulse Ox 94 L 03/22/22 05:00 Intake & Output 03/21/22 03/22/22 03/22/22 18:59 06:59 18:59 Weight 39.009 kg Other: Voiding Method Toilet # Voids 2 - Exam GENERAL EXAM: Alert, active, 66-year-old female patient, on room air, fairly comfortable in no apparent distress. HEAD: Normocephalic. EYES: Normal reaction of pupils, equal size. NOSE: Clear with pink turbinates. THROAT: No erythema or exudates. NECK: Engorged neck veins. CHEST: Engorged chest veins. No chest wall deformity. LUNGS: Equal air entry with no crackles, wheeze, rhonchi or dullness. CVS: S1 and S2 normal with no audible murmur, regular rhythm. ABDOMEN: Engorged abdominal veins. No hepatosplenomegaly, normal bowel sounds, no guarding or rigidity. SPINE: No scoliosis or deformity SKIN: No rashes CENTRAL NERVOUS SYSTEM: No focal deficits, tone is normal in all 4 extremities. EXTREMITIES: There is no peripheral edema. No clubbing, no cyanosis. Peripheral pulses are intact. 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 Collateral venous drainage. Mass extends into the subcarinal region and superiorly to the top of the aortic arch. No pulmonary embolism. Oval-shaped infiltrate of the right lower lobe posteriorly possible atelectasis. 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 Number of minutes spent on the visit: 10.
[2022-03-22] MEDS ORDERED: PHENYLEPHRINE-0.9% NACL SYG 1,000 MCG/10 ML SYRINGE ONE (13:04)
[2022-03-22] MEDS ORDERED: LIDOCAINE 2% INJ 20 MG/ML (2 ML VIAL) ONE (13:04)
[2022-03-22] MEDS ORDERED: MIDAZOLAM 2 MG/2 ML VIAL ONE (13:04)
[2022-03-22] MEDS ORDERED: PROPOFOL 10 MG/ML 20 ML VIAL IV ONE (13:04)
[2022-03-22] MEDS ORDERED: SUCCINYLCHOLINE CHLORIDE 100 MG/5 ML SYR IV ONE (13:04)
[2022-03-22] MEDS ORDERED: fentaNYL (PF) 50 MCG/ML 2 ML AMP ONE (13:04)
[2022-03-22] MEDS ORDERED: LACTATED RINGERS 1,000 ML IV ONE ×2 (13:09)
[2022-03-22 14:20] VITALS: RESP 16; TEMP 98.1
[2022-03-22 14:45] VITALS: BP 121/67; PULSE 90
--- NOTE | 2022-03-22 15:05 | P.PN ---
Subjective Progress Note Date: 03/22/22 Principal diagnosis: SOB In f/u today pt is feeling ok, she feels well enough to go home. Here sister is at bedside. Pt reports stable breathing, no progressive pain, she is pending bronch and biopsy today. Objective - Vital Signs Vital signs: Vital Signs Temp 98.1 F 03/22/22 14:12 Pulse 90 03/22/22 14:42 Resp 16 03/22/22 14:42 BP 121/67 03/22/22 14:42 Pulse Ox 95 03/22/22 14:42 Intake & Output 03/21/22 03/22/22 03/22/22 18:59 06:59 18:59 Intake Total 850 Balance 850 Weight 39.009 kg Intake: IV 850 Other: Voiding Method Toilet # Voids 2 - Constitutional General appearance: Present: cooperative, no acute distress, thin - EENT Eyes: Present: anicteric sclerae, EOMI ENT: Present: hearing grossly normal - Respiratory Details: resp even and unlabored at rest - Integumentary Integumentary: Present: normal - Neurologic Neurologic: Present: CNII-XII intact - Musculoskeletal Musculoskeletal: Present: strength equal bilaterally - Psychiatric Psychiatric: Present: A&O x's 3, appropriate affect, intact judgment & insight - Additional findings Additional findings: venous distension on the chest and abd persist - Labs CBC & Chem 7: 03/20/22 21:43 03/20/22 21:43 - Imaging and Cardiology MRI - head: report reviewed Assessment and Plan (1) Hilar mass Current Visit: Yes Status: Acute Priority: High Code(s): R91.8 - OTHER NONSPECIFIC ABNORMAL FINDING OF LUNG FIELD SNOMED Code(s): 973348612 (2) SVC syndrome Current Visit: Yes Status: Acute Priority: High Code(s): I87.1 - COMPRESSION OF VEIN SNOMED Code(s): 93820861 Plan: Dr. Alcala reviewed neg MRI of the brain. Pending biopsy. Pt is ok from Onc standpoint to be discharged to home once cleared by Pulm post biopsy and Attending. Pt started on dexamethasone 6 mg IV every 8. Rx for Oral steroids and PPI prophylaxis for steroid-induced gastritis sent to Pharmacy already Staging PET scan orders in process. Pt understands that she will get a phone call with appt date and time. Follow-up with Dr. Alcala will be sched once we have other appt scheduled All of her sisters questions were answered to her satisfaction Doctor attests: I performed a history and physical examination of this patient, developed impression and plan of care. Discussed with dictator. I agree with dictators note, documented as a scribe. Time with Patient: Greater than 30
--- NOTE | 2022-03-22 18:12 | OP ---
OPERATIVE REPORT OPERATIVE REPORT: Bronchoscopy, multiple endobronchial biopsies of right upper lobe endobronchial tumor, right middle lobe endobronchial tumor and left mainstem and medial wall tumor, and multiple transcarinal Knott needle aspirations done of the anterior transcarinal lymph nodes and subhilar lymph nodes. ANESTHESIA USED: General anesthesia. Patient was intubated and mechanically ventilated during the procedure. Please refer to [employer] documentation. PROCEDURE DESCRIPTION: The patient was intubated and placed in a supine position by [employer] in the bronchoscopy suite. We were monitoring her O2 saturation continuously, blood pressure was intermittently monitored, and cardiac rhythm was continuously monitored. The bronchoscope was advanced through the adapter of the endotracheal tube, and as we reached the kit, there was obviously evidence of a prominent kit. There was evidence of an endobronchial tumor at the distal aspect of the kit encroaching on the opening of the right upper lobe bronchus. Obviously the tumor seemed to be coming from the lateral aspect of the wall and invading the wall of the right upper lobe bronchus, slightly occluding the opening of the right upper lobe bronchus. However, I was able to visualize the right upper lobe segments, three of them, but they were extrinsically compressed. Then as I went down to the right middle lobe, there was evidence of a 1.5 cm endobronchial tumor abutting the medial wall of the right middle lobe. Right lower lobe was basically unremarkable. Then as I moved up to the left side, I could see evidence of tumor invading the distal medial wall of the left mainstem bronchus. There was no evidence of any other endobronchial tumors. Then multiple endobronchial biopsies were done of the right upper lobe lesion, the right middle lobe lesion, and the left mainstem lesions. These were endobronchial biopsies done from the different sites. Multiple Knott needle aspirations were done from the anterior transcarinal lymph nodes and from the subcarinal lymph nodes. The procedure was well tolerated; no evidence of any complications; minimal blood loss. The family was updated on the findings and the pictures were shared with the daughter as far as the findings were concerned. Final pathology report is pending. MMODL / IJN: [id number] /
--- NOTE | 2022-03-28 11:53 | CDI ---
Documentation Clarification Form Date: 03/28/2022 11:40:00 AM From: June Sloan Admit Date: 03/21/2022 12:24:00 PM Patient Name: Sushila Meyer Visit Number: [id number] Discharge Date: 03/22/2022 05:00:00 PM ATTENTION: The Clinical Documentation Specialists (CDI) and [facility] Coding Staff appreciate your assistance in clarifying documentation. Please respond to the clarification below the line at the bottom and electronically sign. The CDI & [facility] Coding staff will review the response and follow-up if needed. Please note: Queries are made part of the Legal Health Record. If you have any questions, please contact the author of this message via ITS. Dr. 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 Coding guidelines do not allow coding professionals to code based on pathology results; therefore, clarification is requested. History/risk factors: patient is a smoker, weight loss, dyspnea, mass on lungs, SVC syndrome, cough Clinical Indicators: hilar mass, lymphadenopathy, SVC syndrome Diagnostic: bronchoscopy with biopsies Please clarify if you agree with the pathology report diagnosis of positive malignant results: [ xx ] Yes [ ] No [ ] Other (please specify) [ ] Unable to determine MTDD
== END 2022-03-22 17:00 | disposition home or self-care (01) | DRG 166 ==
LOC: EC 18:31 → 6NMEDSUR 23:46 → 5NMEDONC 03-21 04:52 → OBSVTOIN 03-21 12:24 → 5NMEDONC 03-21 16:34
PROVIDERS: ADMIT Internal Medicine Geriatric Medicine; ATTEND Internal Medicine Geriatric Medicine
PROC: 0BBC8ZX Excision of Right Upper Lung Lobe, Via Natural or Artificial Opening Endoscopic, Diagnostic (ICD-10-PCS; principal; 2022-03-22 12:30)
PROC: 0BBD8ZX Excision of Right Middle Lung Lobe, Via Natural or Artificial Opening Endoscopic, Diagnostic (ICD-10-PCS; principal; 2022-03-22 12:30)
PROC: 0BB78ZX Excision of Left Main Bronchus, Via Natural or Artificial Opening Endoscopic, Diagnostic (ICD-10-PCS; principal; 2022-03-22 12:30)
PROC: 0BD28ZX Extraction of Carina, Via Natural or Artificial Opening Endoscopic, Diagnostic (ICD-10-PCS; principal; 2022-03-22 12:30)
DX: C34.11 Malignant neoplasm of upper lobe, right bronchus or lung (principal); E43 Unspecified severe protein-calorie malnutrition; Q04.0 Congenital malformations of corpus callosum; I87.1 Compression of vein; F33.9 Major depressive disorder, recurrent, unspecified; J98.11 Atelectasis; R64 Cachexia; Z68.1 Body mass index [BMI] 19.9 or less, adult; C77.1 Secondary and unspecified malignant neoplasm of intrathoracic lymph nodes; J43.9 Emphysema, unspecified; F41.1 Generalized anxiety disorder; Z28.310 Unvaccinated for COVID-19; F17.210 Nicotine dependence, cigarettes, uncomplicated; I86.8 Varicose veins of other specified sites; R13.10 Dysphagia, unspecified; Z79.899 Other long term (current) drug therapy; Z71.6 Tobacco abuse counseling; Z90.721 Acquired absence of ovaries, unilateral; Z82.49 Family history of ischemic heart disease and other diseases of the circulatory system; Z82.5 Family history of asthma and other chronic lower respiratory diseases; Z81.1 Family history of alcohol abuse and dependence
CPT/HCPCS: 31625; 31633; 36415; 70460; 70553; 71046; 71260; 80053; 83605; 83735; 84100; 85025; 88173; 88305; 88341; 88342; 96374; 96375; 99285

== ENCOUNTER → 2022-03-30 | Outpatient (CLI) | payer MEDICARE ==
--- NOTE | 2022-04-02 06:07 | PE ---
EXAMINATION TYPE: PET CT fusion skull to thigh DATE OF EXAM: 03/30/2022 COMPARISON: Chest CT March 21, 2022 and older study February 14, 2018 HISTORY: Solitary pulmonary nodule, abnormal CT TECHNIQUE: Following the intravenous administration of 11.2 mCi of F-18 FDG, whole body images are p erformed from the skull base to the midthigh. Images are reviewed on the computer in the coronal, ax ial, and sagittal planes. Reconstructed rotating images are created on independent workstation and r eviewed on the computer. A localization and attenuation correction CT is performed in conjunction w ith the PET scan. Blood Glucose level equals 93. SCAN: Initial Scan FINDINGS: SKULL BASE AND NECK: Poorly visualized right supraclavicular mass or adenopathy measuring 5.0 x 4.3 cm axial image 55, max SUV is 7.5. Adjacent smaller hypermetabolic masses or lymph nodes are seen ext ending towards the right axilla and the mediastinum. CHEST, MEDIASTINUM, AND HILAR REGION: Moderate underlying emphysematous change redemonstrated. Large heterogeneous mediastinal mass with calcific component right paratracheal level extends past the hilu m measures approximate 5.1 x 5.1 cm axial image 87 with some areas of necrosis. There are additional mediastinal masses having more confluent appearance extending through the subcarinal and left infrahi lar level level and throughout the paratracheal region and in the anterior superior mediastinum noted . SUV is 8.32 at level of kit posteriorly axial image 78 There is 1.7 x 1.6 cm anterior superior med iastinal lymph node just anterior to the trachea posterior to the sternoclavicular joint axial image 65, max SUV is 6.99. There is 1.3 cm central right lower lobe hypermetabolic nodule axial image 101, max SUV is 4.35. ABDOMEN AND PELVIS: Mild nonspecific bowel uptake. Presumed normal excretion from right kidney axial image 170. No definitive abnormal hypermetabolic uptake identified. Patient has little intraabdominal fat making evaluation suboptimal. OSSEOUS STRUCTURES: No definitive areas of abnormal hypermetabolic uptake. OTHER CT: Nasal septum deviated to right of midline. Moderate to severe calcified plaque of the aorta extends into branch vessels IMPRESSION: Neoplastic involvement greatest in the mediastinum extending to right supraclavicular lev el. There is single hypermetabolic central small right lower lobe nodule. No malignant involvement ou tside the lower neck and thorax identified.
== END | disposition home or self-care (01) ==
LOC: RADPETMAIN 11:38
PROVIDERS: ATTEND Internal Medicine Hematology & Oncology
DX: R91.1 Solitary pulmonary nodule (principal)
CPT/HCPCS: 78815; A9552

== ENCOUNTER 2022-04-15 04:59 | Emergency (ER) | payer MEDICARE ==
[2022-04-15 05:06] VITALS: BP 158/96; PULSE 99; RESP 16; TEMP 97.7
[2022-04-15] MEDS ORDERED: MAG HYDROX/AL HYDROX/SIMETH 30 ML, HYOSCYAMINE ELIXIR 10 ML, LIDOCAINE VISCOUS 2% 10 ML PO STA ×3 (05:24)
[2022-04-15] MEDS ORDERED: HYDROcodone/APAP 15 ML SOLUTION PO ONE (05:30)
[2022-04-15] MEDS ORDERED: NYSTATIN 100,000 UNIT/ML SUSP 500,000 UNIT/5 ML CUP PO ONE (05:30)
--- NOTE | 2022-04-15 05:42 | ED ---
ENT HPI - General Chief complaint: ENT Stated complaint: Throat Pain Time Seen by Provider: 04/15/22 05:24 Source: patient, RN notes reviewed, old records reviewed Mode of arrival: ambulatory Limitations: no limitations - History of Present Illness Initial comments: This is a 66-year-old female presenting with severe sore throat history of esophageal CA. Patient coming in for severe sore throat going to current treatment. No shortness of breath no other complaints is able to eat and drink MD complaint: sore throat -: days(s) Location: throat Severity: severe Severity scale (1-10): 10 Quality: stabbing, aching Consistency: constant Improves with: none Worsens with: swallowing Associated Symptoms: sore throat - Related Data Home Medications Medication Instructions Recorded Confirmed HYDROcodone/APAP 5-325MG [Lester 1 tab PO Q6H PRN 03/20/22 03/20/22 5-325] DULoxetine HCL [Cymbalta] 30 mg PO DAILY 03/21/22 03/21/22 busPIRone HCl [Buspar] 10 mg PO BID 03/21/22 03/21/22 Previous Rx's Medication Instructions Recorded Dexamethasone 6 mg PO Q8H #90 tablet 03/21/22 Pantoprazole [Protonix] 40 mg PO BID #60 tab 03/21/22 Nicotine 14Mg/24Hr Patch [Habitrol] 1 patch TRANSDERM DAILY #30 patch 03/22/22 Lidocaine Viscous [Xylocaine 10 ml PO BID #100 ml 04/15/22 Viscous 2%] Nystatin 100,000 Unit/ml Susp 6 ml PO QID #150 ml 04/15/22 [Mycostatin Oral Susp] Allergies Allergy/AdvReac Type Severity Reaction Status Date / Time No Known Allergies Allergy Verified 03/20/22 22:13 Review of Systems ROS Statement: Those systems with pertinent positive or pertinent negative responses have been documented in the HPI. ROS Other: All systems not noted in ROS Statement are negative. Past Medical History Past Medical History: Cancer Additional Past Medical History / Comment(s): lung mass History of Any Multi-Drug Resistant Organisms: None Reported Past Surgical History: Orthopedic Surgery Additional Past Surgical History / Comment(s): ovary removed Past Anesthesia/Blood Transfusion Reactions: No Reported Reaction Past Psychological History: Depression Smoking Status: Current every day smoker Past Alcohol Use History: Occasional Past Drug Use History: None Reported - Past Family History Sister(s) Family Medical History: Myocardial Infarction (NV) Additional Family Medical History / Comment(s): Sister had a NV at the age of 67yrs. Mother Family Medical History: No Reported History Additional Family Medical History / Comment(s): Mother lived to be 94 yrs old. She was a smoker. Father Family Medical History: Chest Pain / Angina Additional Family Medical History / Comment(s): Father had breathing problems. He lived to be 89yrs old. General Exam Limitations: no limitations General appearance: alert, in no apparent distress Head exam: Present: atraumatic, normocephalic, normal inspection Eye exam: Present: normal appearance, PERRL, EOMI. Absent: scleral icterus, conjunctival injection, periorbital swelling ENT exam: Present: normal exam, mucous membranes moist, other (Does have significant swelling of the posterior throat with erythema, candidiasis type reaction) Neck exam: Present: normal inspection. Absent: tenderness, meningismus, lymphadenopathy Respiratory exam: Present: normal lung sounds bilaterally. Absent: respiratory distress, wheezes, rales, rhonchi, stridor Cardiovascular Exam: Present: regular rate, normal rhythm, normal heart sounds. Absent: systolic murmur, diastolic murmur, rubs, gallop, clicks GI/Abdominal exam: Present: soft, normal bowel sounds. Absent: distended, tenderness, guarding, rebound, rigid Extremities exam: Present: normal inspection, full ROM, normal capillary refill. Absent: tenderness, pedal edema, joint swelling, calf tenderness Back exam: Present: normal inspection Neurological exam: Present: alert, oriented X3, CN II-XII intact Psychiatric exam: Present: normal affect, normal mood Skin exam: Present: warm, dry, intact, normal color. 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 Also has likely candidiasis as well. Patient placed on pain control understanding can be discharged - Lab Data Lab Results 04/15/22 Range/Units 05:26 Group A Strep Rapid Negative (Negative) Disposition Clinical Impression: Sore throat, Radiation esophagitis Disposition: HOME SELF-CARE Condition: Good Instructions (If sedation given, give patient instructions): Esophagitis (ED) Prescriptions: Nystatin 100,000 Unit/ml Susp [Mycostatin Oral Susp] 6 ml PO QID #150 ml Lidocaine Viscous [Xylocaine Viscous 2%] 10 ml PO BID #100 ml Is patient prescribed a controlled substance at d/c from ED?: No Referrals: Stephan Luque MD [Primary Care Provider] - 1-2 days
== END 2022-04-15 06:35 | disposition home or self-care (01) ==
LOC: EC 04:59
DX: K20.90 Esophagitis, unspecified without bleeding (principal); F17.200 Nicotine dependence, unspecified, uncomplicated; Z82.49 Family history of ischemic heart disease and other diseases of the circulatory system
CPT/HCPCS: 87081; 87430

== ENCOUNTER 2022-05-15 10:58 | Inpatient (IN) | payer MEDICARE ==
[2022-05-15] MEDS ORDERED: SODIUM CHLORIDE 0.9% 1,000 ML IV STA (11:24)
[2022-05-15 12:14] LABS: HCT 29.2 % (34.0-46.0); MCH 32.1 pg (25.0-35.0); MCHC 33.3 g/dL (31.0-37.0); MCV 96.2 fL (80.0-100.0); Mean Platelet Volume 9.6; RBC 3.03 m/uL (3.80-5.40)
--- NOTE | 2022-05-15 12:15 | XR ---
EXAMINATION TYPE: XR chest 2V DATE OF EXAM: 05/15/2022 COMPARISON: 03/20/2022 TECHNIQUE: PA and lateral views submitted. HISTORY: Weakness FINDINGS: A large right suprahilar mass noted which is reduced in size from prior exam. However, patchy infiltr ates in the left perihilar, right upper lobe could be on the basis of infiltrate or neoplasm. Bilater al nipple shadows lower lobes. Biapical pleural thickening with diffuse osteopenia and hypertrophic c hange of the AC joint. Chronic-appearing wedge deformity lower thoracic spine with degenerative ramirez es. Retrosternal nodule measuring 1 cm on the lateral view. IMPRESSION: 1. Reduced right suprahilar soft tissue mass suspicious for malignancy. 2. Bilateral upper lobe masses favored over pneumonia correlate clinically. These appear new from cris or exam. 3. COPD.
[2022-05-15 12:30] LABS: ALT 13 U/L (4-34); AST 15 U/L (14-36); African American GFR (CKD) >90 (>60 ml/min/1.73 sqM); Albumin 2.7 g/dL (3.5-5.0); Alkaline Phosphatase 120 U/L (38-126); Anion Gap 5 mmol/L; Blood Urea Nitrogen 12 mg/dL (7-17); Calcium 8.1 mg/dL (8.4-10.2); Carbon Dioxide 26 mmol/L (22-30); Chloride 103 mmol/L (98-107); Glucose 94 mg/dL (74-99); Magnesium 1.5 mg/dL (1.6-2.3); Non-African American GFR(CKD) >90 (>60 ml/min/1.73 sqM); Potassium 3.6 mmol/L (3.5-5.1); Sodium 134 mmol/L (137-145); Total Bilirubin 0.5 mg/dL (0.2-1.3)
[2022-05-15 12:33] LABS: HGB 9.7 gm/dL (11.4-16.0)
[2022-05-15] MEDS ORDERED: HYDROmorphone 0.5 MG/0.5 ML SYRINGE IVP STA (12:47)
[2022-05-15] MEDS ORDERED: MAGNESIUM SULFATE-D5W PMX 1 GM in DEXTROSE/WATER 1 100ML.BAG IVPB ONE (12:47)
--- NOTE | 2022-05-15 13:01 | ED ---
General Adult HPI - General Chief complaint: Weakness Stated complaint: chest pain Time Seen by Provider: 05/15/22 11:10 Source: patient, EMS Mode of arrival: EMS Limitations: no limitations - History of Present Illness Initial comments: 66-year-old female with past medical history of lung cancer currently on chemo and radiation with Dr. Alcala who presents to the emergency department with generalized weakness and inability to eat. States that she currently is undergoing radiation. Last treatment was yesterday. She has significant right- sided chest pain because of the radiation. She was recently prescribed hycet however has been unable to fill the prescription as the pharmacy is out of the medication. She has not been able eat or drink due to the pain. EMS gave the patient a liter fluid and 4 mg of Zofran. No other alleviating, precipitating factors - Related Data Home Medications Medication Instructions Recorded Confirmed HYDROcodone/APAP 5-325MG [[place] 0.5 - 1 tab PO Q6H PRN 03/20/22 05/15/22 5-325] DULoxetine HCL [Cymbalta] 30 mg PO DAILY 03/21/22 05/15/22 busPIRone HCl [Buspar] 10 mg PO BID 03/21/22 05/15/22 Previous Rx's Medication Instructions Recorded Pantoprazole [Protonix] 40 mg PO BID #60 tab 05/17/22 dexAMETHasone 4 mg PO BID #60 tablet 05/17/22 dronabinoL [Marinol] 2.5 mg PO AC-BID 3 Days #60 cap 05/17/22 Sennosides-Docusate Sodium 1 each PO BID tab 05/18/22 [Senokot-S] cefUROXime axetiL [Ceftin] 500 mg PO BID 7 Days #14 tab 05/18/22 Allergies Allergy/AdvReac Type Severity Reaction Status Date / Time egg AdvReac Unknown Verified 05/16/22 16:03 Review of Systems ROS Statement: Those systems with pertinent positive or pertinent negative responses have been documented in the HPI. ROS Other: All systems not noted in ROS Statement are negative. Past Medical History Past Medical History: Cancer Additional Past Medical History / Comment(s): lung mass History of Any Multi-Drug Resistant Organisms: None Reported Past Surgical History: Orthopedic Surgery Additional Past Surgical History / Comment(s): ovary removed Past Anesthesia/Blood Transfusion Reactions: No Reported Reaction Past Psychological History: Depression Smoking Status: Current every day smoker Past Alcohol Use History: Occasional Past Drug Use History: None Reported - Past Family History Sister(s) Family Medical History: Myocardial Infarction (CA) Additional Family Medical History / Comment(s): Sister had a CA at the age of 67yrs. Mother Family Medical History: No Reported History Additional Family Medical History / Comment(s): Mother lived to be 94 yrs old. She was a smoker. Father Family Medical History: Chest Pain / Angina Additional Family Medical History / Comment(s): Father had breathing problems. He lived to be 89yrs old. General Exam Limitations: no limitations General appearance: alert, in no apparent distress, cachectic Head exam: Present: atraumatic, normocephalic, normal inspection Eye exam: Present: normal appearance, PERRL, EOMI. Absent: scleral icterus, conjunctival injection, periorbital swelling ENT exam: Present: mucous membranes dry Respiratory exam: Present: normal lung sounds bilaterally. Absent: respiratory distress, wheezes, rales, rhonchi, stridor Cardiovascular Exam: Present: normal rhythm, tachycardia GI/Abdominal exam: Present: soft, normal bowel sounds. 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 FL interval 137. QRS 86. QTC 41. No acute ST segment elevations or depressions Medical Decision Making - Medical Decision Making Upon arrival patient was placed in room 3. There are history of physical exam is performed. IV access established laboratories as recommended. She is given Dilaudid for pain control. Laboratory states her conducted which demonstrated pancytopenia. Urinalysis is positive for nitrates and moderate bacteria. Rocephin ordered. Recommended admission for hydration and antibiotics for which the patient did agree to. Spoke with Dr. Luque who agreed to admit the patient. She remained in stable condition awaiting a bed on the floor - Lab Data Result diagrams: 05/18/22 05:40 05/18/22 05:34 Lab Results 05/15/22 05/15/22 05/15/22 Range/Units 11:57 11:57 11:57 WBC 2.0 L (3.8-10.6) k/uL RBC 3.03 L (3.80-5.40) m/uL Hgb 9.7 L D (11.4-16.0) gm/dL Hct 29.2 L (34.0-46.0) % MCV 96.2 (80.0-100.0) fL MCH 32.1 (25.0-35.0) pg MCHC 33.3 (31.0-37.0) g/dL RDW 15.0 (11.5-15.5) % Plt Count 97 L D (150-450) k/uL MPV 9.6 Neutrophils % (Manual) 70 % Band Neuts % (Manual) 4 % Lymphocytes % (Manual) 9 % Monocytes % (Manual) 14 % Eosinophils % (Manual) 2 % Metamyelocytes % 1 % Neutrophils # (Manual) 1.40 (1.3-7.7) k/uL Lymphocytes # (Manual) 0.18 L (1.0-4.8) k/uL Monocytes # (Manual) 0.28 (0-1.0) k/uL Eosinophils # (Manual) 0.04 (0-0.7) k/uL Metamyelocytes # (Man) 0.02 H (0) k/uL Nucleated RBCs 0 (0-0) /100 WBC Manual Slide Review Performed RBC Morphology Normal Macrocytosis PT (9.0-12.0) sec INR (<1.2) APTT (22.0-30.0) sec Sodium 134 L (137-145) mmol/L Potassium 3.6 (3.5-5.1) mmol/L Chloride 103 (98-107) mmol/L Carbon Dioxide 26 (22-30) mmol/L Anion Gap 5 mmol/L BUN 12 (7-17) mg/dL Creatinine 0.42 L (0.52-1.04) mg/dL Est GFR (CKD-EPI)AfAm >90 (>60 ml/min/1.73 sqM) Est GFR (CKD-EPI)NonAf >90 (>60 ml/min/1.73 sqM) Glucose 94 (74-99) mg/dL Plasma Lactic Acid Blanco (0.7-2.0) mmol/L Calcium 8.1 L (8.4-10.2) mg/dL Magnesium 1.5 L (1.6-2.3) mg/dL Total Bilirubin 0.5 (0.2-1.3) mg/dL AST 15 (14-36) U/L ALT 13 (4-34) U/L Alkaline Phosphatase 120 (38-126) U/L Troponin I (0.000-0.034) ng/mL Total Protein 5.0 L (6.3-8.2) g/dL Albumin 2.7 L (3.5-5.0) g/dL Globulin g/dL Albumin/Globulin Ratio Urine Color Light Yellow Urine Appearance Cloudy H (Clear) Urine pH 6.5 (5.0-8.0) Ur Specific [place] 1.006 (1.001-1.035) Urine Protein Negative (Negative) Urine Glucose (UA) Negative (Negative) Urine Ketones 1+ H (Negative) Urine Blood Small H (Negative) Urine Nitrite Positive H (Negative) Urine Bilirubin Negative (Negative) Urine Urobilinogen <2.0 (<2.0) mg/dL Ur Leukocyte Esterase Negative (Negative) Urine RBC 3 (0-5) /hpf Urine WBC 2 (0-5) /hpf Ur Squamous Epith Cells <1 (0-4) /hpf Urine Bacteria Moderate H (None) /hpf Urine Mucus Few H (None) /hpf 05/15/22 05/15/22 05/15/22 Range/Units 11:57 11:57 13:15 WBC (3.8-10.6) k/uL RBC (3.80-5.40) m/uL Hgb (11.4-16.0) gm/dL Hct (34.0-46.0) % MCV (80.0-100.0) fL MCH (25.0-35.0) pg MCHC (31.0-37.0) g/dL RDW (11.5-15.5) % Plt Count (150-450) k/uL MPV Neutrophils % (Manual) % Band Neuts % (Manual) % Lymphocytes % (Manual) % Monocytes % (Manual) % Eosinophils % (Manual) % Metamyelocytes % % Neutrophils # (Manual) (1.3-7.7) k/uL Lymphocytes # (Manual) (1.0-4.8) k/uL Monocytes # (Manual) (0-1.0) k/uL Eosinophils # (Manual) (0-0.7) k/uL Metamyelocytes # (Man) (0) k/uL Nucleated RBCs (0-0) /100 WBC Manual Slide Review RBC Morphology Macrocytosis PT 10.5 (9.0-12.0) sec INR 1.0 (<1.2) APTT 22.4 (22.0-30.0) sec Sodium (137-145) mmol/L Potassium (3.5-5.1) mmol/L Chloride (98-107) mmol/L Carbon Dioxide (22-30) mmol/L Anion Gap mmol/L BUN (7-17) mg/dL Creatinine (0.52-1.04) mg/dL Est GFR (CKD-EPI)AfAm (>60 ml/min/1.73 sqM) Est GFR (CKD-EPI)NonAf (>60 ml/min/1.73 sqM) Glucose (74-99) mg/dL Plasma Lactic Acid Blanco 0.9 (0.7-2.0) mmol/L Calcium (8.4-10.2) mg/dL Magnesium (1.6-2.3) mg/dL Total Bilirubin (0.2-1.3) mg/dL AST (14-36) U/L ALT (4-34) U/L Alkaline Phosphatase (38-126) U/L Troponin I <0.012 (0.000-0.034) ng/mL Total Protein (6.3-8.2) g/dL Albumin (3.5-5.0) g/dL Globulin g/dL Albumin/Globulin Ratio Urine Color Urine Appearance (Clear) Urine pH (5.0-8.0) Ur Specific [place] (1.001-1.035) Urine Protein (Negative) Urine Glucose (UA) (Negative) Urine Ketones (Negative) Urine Blood (Negative) Urine Nitrite (Negative) Urine Bilirubin (Negative) Urine Urobilinogen (<2.0) mg/dL Ur Leukocyte Esterase (Negative) Urine RBC (0-5) /hpf Urine WBC (0-5) /hpf Ur Squamous Epith Cells (0-4) /hpf Urine Bacteria (None) /hpf Urine Mucus (None) /hpf 05/16/22 05/16/22 Range/Units 08:00 08:00 WBC 3.6 L (3.8-10.6) k/uL RBC 2.96 L (3.80-5.40) m/uL Hgb 8.8 L (11.4-16.0) gm/dL Hct 29.0 L (34.0-46.0) % MCV 98.0 (80.0-100.0) fL MCH 29.8 (25.0-35.0) pg MCHC 30.4 L (31.0-37.0) g/dL RDW 15.0 (11.5-15.5) % Plt Count 102 L (150-450) k/uL MPV 8.9 Neutrophils % (Manual) 71 % Band Neuts % (Manual) 5 % Lymphocytes % (Manual) 4 % Monocytes % (Manual) 20 % Eosinophils % (Manual) 1 % Metamyelocytes % 1 % Neutrophils # (Manual) 2.70 (1.3-7.7) k/uL Lymphocytes # (Manual) 0.14 L (1.0-4.8) k/uL Monocytes # (Manual) 0.72 (0-1.0) k/uL Eosinophils # (Manual) 0.04 (0-0.7) k/uL Metamyelocytes # (Man) 0.04 H (0) k/uL Nucleated RBCs 0 (0-0) /100 WBC Manual Slide Review Performed RBC Morphology Macrocytosis Slight PT (9.0-12.0) sec INR (<1.2) APTT (22.0-30.0) sec Sodium 137 (137-145) mmol/L Potassium 3.6 (3.5-5.1) mmol/L Chloride 105 (98-107) mmol/L Carbon Dioxide 26 (22-30) mmol/L Anion Gap 6 mmol/L BUN 6 L (7-17) mg/dL Creatinine 0.39 L (0.52-1.04) mg/dL Est GFR (CKD-EPI)AfAm >90 (>60 ml/min/1.73 sqM) Est GFR (CKD-EPI)NonAf >90 (>60 ml/min/1.73 sqM) Glucose 94 (74-99) mg/dL Plasma Lactic Acid Blanco (0.7-2.0) mmol/L Calcium 8.0 L (8.4-10.2) mg/dL Magnesium (1.6-2.3) mg/dL Total Bilirubin 0.3 (0.2-1.3) mg/dL AST 12 L (14-36) U/L ALT 11 (4-34) U/L Alkaline Phosphatase 116 (38-126) U/L Troponin I (0.000-0.034) ng/mL Total Protein 4.7 L (6.3-8.2) g/dL Albumin 2.5 L (3.5-5.0) g/dL Globulin 2.2 g/dL Albumin/Globulin Ratio 1.1 Urine Color Urine Appearance (Clear) Urine pH (5.0-8.0) Ur Specific [place] (1.001-1.035) Urine Protein (Negative) Urine Glucose (UA) (Negative) Urine Ketones (Negative) Urine Blood (Negative) Urine Nitrite (Negative) Urine Bilirubin (Negative) Urine Urobilinogen (<2.0) mg/dL Ur Leukocyte Esterase (Negative) Urine RBC (0-5) /hpf Urine WBC (0-5) /hpf Ur Squamous Epith Cells (0-4) /hpf Urine Bacteria (None) /hpf Urine Mucus (None) /hpf Disposition Clinical Impression: Radiation pneumonitis, Pancytopenia, Nausea, UTI (urinary tract infection) Disposition: ADMITTED IP TO THIS HOSP Condition: Stable Is patient prescribed a controlled substance at d/c from ED?: No Time of Disposition: 15:08 Decision to Admit Reason: Admit from EC Decision Date: 05/15/22 Decision Time: 15:09
[2022-05-15 13:26] LABS: Platelet Count 97 k/uL (150-450)
[2022-05-15 13:30] LABS: Band Neutrophils % 4 %; Eosinophils # (M) 0.04 k/uL (0-0.7); Lymphocytes # (M) 0.18 k/uL (1.0-4.8); Metamyelocytes # (M) 0.02 k/uL (0); Metamyelocytes % 1 %; Monocytes # (M) 0.28 k/uL (0-1.0); Neutrophils % (M) 70 %; Nucleated Red Blood Cells 0 /100 WBC (0-0); Total Cells Counted 100
[2022-05-15 13:31] LABS: RBC Morphology Normal
[2022-05-15 13:33] LABS: Appearance,Urine Cloudy (Clear); Bacteria,Urine Moderate /hpf; Bilirubin,Urine Negative (Negative); Blood,Urine Small (Negative); Color,Urine Light Yellow; Glucose,Urine (UA) Negative (Negative); Ketones,Urine 1+ (Negative); Leukocyte Esterase,Urine Negative (Negative); Mucus,Urine Few /hpf; Nitrite,Urine Positive (Negative); PH, Urine 6.5 (5.0-8.0); Protein,Urine Negative (Negative); RBC,Urine 3 /hpf (0-5); Specific Gravity,Urine 1.006 (1.001-1.035); Squamous Epithelial Cell,Urine <1 /hpf (0-4); Urobilinogen,Urine <2.0 mg/dL (<2.0); WBC,Urine 2 /hpf (0-5)
[2022-05-15 13:42] LABS: Partial Thromboplastin Time 22.4 sec (22.0-30.0); Prothrombin Time 10.5 sec (9.0-12.0)
[2022-05-15] MEDS ORDERED: cefTRIAXone IN SWFI 1,000 MG/10 ML SYRINGE IVP STA (14:39)
[2022-05-15] MEDS ORDERED: NALOXONE 0.4 MG/ML 1 ML VIAL IV PRN (15:11)
[2022-05-15] MEDS: SODIUM CHLORIDE 0.9% 1,000 ML IV SCH ×2 (16:12→23:25)
[2022-05-15] MEDS: HYDROmorphone 0.5 MG/0.5 ML SYRINGE IVP PRN ×2 (16:12→20:11)
[2022-05-15] MEDS: busPIRone HCl 10 MG TAB PO SCH (20:57)
--- NOTE | 2022-05-15 23:46 | P.HPIM ---
History of Present Illness H&P Date: 05/15/22 HISTORY OF PRESENT ILLNESS This is a 66-year-old female patient of Dr. Luque with past medical history of COPD, tobacco use and dependence, recurrent depression and generalized anxiety disorder. In January 2018, patient underwent low-dose CAT scan which revealed moderate emphysematous change without suspicious nodules. Patient was to have a repeat of this but due to Covid she failed to follow-up. She is now in [place] for the past 4 months and started developing significant pain in her chest and shoulders along with a dry cough, headache, right-sided earache as well as nausea and diarrhea. She went to a clinic in [place] and was told that she had a mass in her lungs and that she needed to get into specialist as soon as possible. On March 18 she went to the emergency center and underwent a CAT scan of the chest and was told that she had cancer in her lung and wanted to admit the patient but she refused as she preferred to return home to see her own physician. Patient also has had 10 pounds of weight loss over the past month. 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 Patient was started on chemotherapy and radiation was seen in the office still seen oncology regularly. She presented to the emergency department today at [facility] because of severe dehydration not been able to eat or drink through her radiation and chemotherapy had lost quite bed weight have intractable nausea not able to tolerate any food or fluid down. Had blood work performed showed significant thrombocytopenia with leukopenia and anemia most likely suppression from her chemotherapy electrolyte imbalance with significantly low magnesium at 1.5 troponin was normal albumin level was quite bit low patient UA came back positive for urinary tract infection and there is an area her urine test positive from May 10 when patient asked apparently was not treated not acute ordered the tests at the time. Chest x-ray today showed reduce right suprahilar soft tissue mass which is original malignancy with bilateral upper lobe masses favored over pneumonia. Patient was started on IV a ntibiotic, hydration antiemesis medication will be admitted to the hospital repeat CBC to make sure she is not going into pancytopenia from chemotherapy also see if there is any culture can be guided this to her management and treatment of the time. REVIEW OF SYSTEMS Constitutional: No fever, no chills, no night sweats. Reports weight loss. Reports weakness, reports fatigue no lethargy. No daytime sleepiness. EENT: No headache. No blurred vision or double vision, no loss of vision. No loss of Hearing, no ringing in the ears, no dizziness. No nasal drainage or congestion. No epistaxis. No sore throat. Lungs: Reports shortness of breath, reports cough, no sputum production. No wheezing. Cardiovascular: Reports chest pain, no lower extremity edema. No palpitations. No paroxysmal nocturnal dyspnea. No orthopnea. No lightheadedness or dizziness. No syncopal episodes. Abdominal: No abdominal pain. Reports nausea, no vomiting. Reports diarrhea. No constipation. No bloody or tarry stools. No loss of appetite. Genitourinary: No dysuria, increased frequency, urgency. No urinary retention. Musculoskeletal: No myalgias. No muscle weakness, no gait dysfunction, no frequent falls. No back pain. No neck pain. Integumentary: No wounds, no lesions. No rash or pruritus. No unusual bruising. No change in hair or nails. Neurologic: No aphasia. No facial droop. No change in mentation. No head injury. No headache. No paralysis. No paresthesia. Psychiatric: No depression. No anxiety. No mood swings. Endocrine: No abnormal blood sugars. No weight change. No excessive sweating or thirst. No cold intolerance. SOCIAL HISTORY Patient is a smoker of half a pack a day for 50 years plus. She drinks alcohol couple times per week. She denies any marijuana or illicit drug use. She does not have oxygen, nebulizer at home. FAMILY HISTORY Mother at age 94 from old age. Father at age 89 with history of COPD and coronary artery disease. Patient has 6 siblings and one brother from acute alcohol poisoning. One sister was diagnosed with myocardial infarction at age 67 otherwise other siblings have no major medical problems. Patient has one son with no major medical problems. PHYSICAL EXAMINATION Gen: This is a 66-year-old cachectic-appearing female. She is resting in the ER stretcher and appears to be in no acute respiratory distress. HEENT: Head is atraumatic, normocephalic. Pupils equal, round. Sclerae is anicteric. NECK: Supple. No JVD. No lymphadenopathy. No thyromegaly. LUNGS: Clear to auscultation. No wheezes or rhonchi. No intercostal retractions. No accessory muscle usage. HEART: Regular rate and rhythm. No murmur. Engorged veins throughout the chest and abdomen. ABDOMEN: Soft. Bowel sounds are present. No masses. No tenderness. EXTREMITIES: No pedal edema. No calf tenderness. NEUROLOGICAL: Patient is awake, alert and oriented x3. Cranial nerves 2 through 12 are grossly intact. ASSESSMENT AND PLAN - intractable nausea and vomiting with severe dehydration: Most likely the e ffect of for chemotherapy and severe gastritis, will continue patient on PPI, hydration and anti-emetic medication. - pancytopenia: Most likely the effect of chemotherapy, patient will continue supportive care, antibiotics hydration repeat CBC next 24 hours. - Urinary tract infection: With positive urine from the nd patient be on Rocephin for now to the cultures back. - Possible obstructive pneumonitis specially over the mass in the right side despite significant reduction in the size of her mass specially with patient symptoms with the cough shortness of breath hypoxia antibiotics along with updraft treatment and oxygen. 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 She was diagnosed with small cell carcinoma was started on chemotherapy and radiation. - Severe protein calorie malnutrition with recent weight loss and BMI 14. Regular diet plus Ensure twice daily. - electronically imbalance with severe hypomagnesemia: Magnesium supplement to be done for now. - Anemia: Most likely suppression from her chemotherapy patient can be benefit from Neupogen and Epogen at this point. - Active tobacco use and dependence. Smoking cessation. - GI prophylaxis. Protonix. - DVT prophylaxis. no heparin will be used this point specially with her thrombocytopenia will continue knee-high NAE hose and Venodyne boots. - CODE STATUS: Full code. Patient will be admitted to the hospital for a minimum of 2 night stay. DISCHARGE PLAN Most likely return home when more stable. Past Medical History Past Medical History: Cancer Additional Past Medical History / Comment(s): lung mass History of Any Multi-Drug Resistant Organisms: None Reported Past Surgical History: Orthopedic Surgery Additional Past Surgical History / Comment(s): ovary removed Past Anesthesia/Blood Transfusion Reactions: No Reported Reaction Past Psychological History: Depression Smoking Status: Current every day smoker Past Alcohol Use History: Occasional Past Drug Use History: None Reported - Past Family History Sister(s) Family Medical History: Myocardial Infarction (ID) Additional Family Medical History / Comment(s): Sister had a ID at the age of 67yrs. Mother Family Medical History: No Reported History Additional Family Medical History / Comment(s): Mother lived to be 94 yrs old. She was a smoker. Father Family Medical History: Chest Pain / Angina Additional Family Medical History / Comment(s): Father had breathing problems. He lived to be 89yrs old. Medications and Allergies Home Medications Medication Instructions Recorded Confirmed Type HYDROcodone/APAP 5-325MG [[place] 0.5 - 1 tab PO Q6H PRN 03/20/22 05/15/22 History 5-325] DULoxetine HCL [Cymbalta] 30 mg PO DAILY 03/21/22 05/15/22 History busPIRone HCl [Buspar] 10 mg PO BID 03/21/22 05/15/22 History Allergies Allergy/AdvReac Type Severity Reaction Status Date / Time No Known Allergies Allergy Verified 05/15/22 11:54 Physical Exam Vitals: Vital Signs Temp Pulse Resp BP Pulse Ox 05/15/22 15:32 96 18 110/78 96 05/15/22 14:00 98 18 106/74 94 L 05/15/22 13:30 108 H 18 121/82 94 L 05/15/22 12:30 99 18 133/81 99 05/15/22 11:07 98.0 F 105 H 16 115/78 98 Intake and Output 05/15/22 05/15/22 05/15/22 06:59 14:59 22:59 Other: Weight 31.751 kg 31.751 kg Results CBC & Chem 7: 05/15/22 11:57 05/15/22 11:57 Labs: Abnormal Lab Results - Last 24 Hours (Table) 05/15/22 05/15/22 05/15/22 Range/Units 11:57 11:57 11:57 WBC 2.0 L (3.8-10.6) k/uL RBC 3.03 L (3.80-5.40) m/uL Hgb 9.7 L D (11.4-16.0) gm/dL Hct 29.2 L (34.0-46.0) % Plt Count 97 L D (150-450) k/uL Lymphocytes # (Manual) 0.18 L (1.0-4.8) k/uL Metamyelocytes # (Man) 0.02 H (0) k/uL Sodium 134 L (137-145) mmol/L Creatinine 0.42 L (0.52-1.04) mg/dL Calcium 8.1 L (8.4-10.2) mg/dL Magnesium 1.5 L (1.6-2.3) mg/dL Total Protein 5.0 L (6.3-8.2) g/dL Albumin 2.7 L (3.5-5.0) g/dL Urine Appearance Cloudy H (Clear) Urine Ketones 1+ H (Negative) Urine Blood Small H (Negative) Urine Nitrite Positive H (Negative) Urine Bacteria Moderate H (None) /hpf Urine Mucus Few H (None) /hpf Thrombosis Risk Factor Assmnt - Choose All That Apply Any of the Below Risk Factors Present?: Yes Each Factor Represents 1 point: Serious lung disease incl. pneumonia (< 1month) Other Risk Factors: Yes Each Risk Factor Represents 2 Points: Age 61-74 years, Malignancy Other congenital or acquired thrombophilia - If yes, enter type in comment: No Thrombosis Risk Factor Assessment Total Risk Factor Score: 5 Thrombosis Risk Factor Assessment Level: High Risk
[2022-05-16] MEDS: HYDROmorphone 0.5 MG/0.5 ML SYRINGE IVP PRN ×5 (00:02→16:14)
[2022-05-16] MEDS: SODIUM CHLORIDE 0.9% 1,000 ML IV SCH ×3 (07:39→21:07)
[2022-05-16 08:58] LABS: ALT 11 U/L (4-34); AST 12 U/L (14-36); African American GFR (CKD) >90 (>60 ml/min/1.73 sqM); Albumin 2.5 g/dL (3.5-5.0); Albumin/Globulin Ratio 1.1; Alkaline Phosphatase 116 U/L (38-126); Anion Gap 6 mmol/L; Blood Urea Nitrogen 6 mg/dL (7-17); Carbon Dioxide 26 mmol/L (22-30); Chloride 105 mmol/L (98-107); Globulin 2.2 g/dL; Glucose 94 mg/dL (74-99); Non-African American GFR(CKD) >90 (>60 ml/min/1.73 sqM); Potassium 3.6 mmol/L (3.5-5.1); Sodium 137 mmol/L (137-145); Total Bilirubin 0.3 mg/dL (0.2-1.3); Total Protein 4.7 g/dL (6.3-8.2)
[2022-05-16] MEDS: DULoxetine HCL 30 MG CAPSULE.DR PO SCH (09:18)
[2022-05-16] MEDS: busPIRone HCl 10 MG TAB PO SCH ×2 (09:18→21:06)
[2022-05-16 09:31] LABS: HGB 8.8 gm/dL (11.4-16.0); MCH 29.8 pg (25.0-35.0); MCHC 30.4 g/dL (31.0-37.0); Macrocytosis Slight; Mean Platelet Volume 8.9; RBC 2.96 m/uL (3.80-5.40); WBC 3.6 k/uL (3.8-10.6)
[2022-05-16 09:32] LABS: Platelet Count 102 k/uL (150-450)
--- NOTE | 2022-05-16 10:30 | P.PN ---
Subjective Progress Note Date: 05/16/22 HISTORY OF PRESENT ILLNESS This is a 66-year-old female patient of Dr. Luque with past medical history of COPD, tobacco use and dependence, recurrent depression and generalized anxiety disorder. In January 2018, patient underwent low-dose CAT scan which revealed moderate emphysematous change without suspicious nodules. Patient was to have a repeat of this but due to Covid she failed to follow-up. She is now in [place] for the past 4 months and started developing significant pain in her chest and shoulders along with a dry cough, headache, right-sided earache as well as naus ea and diarrhea. She went to a clinic in [place] and was told that she had a mass in her lungs and that she needed to get into specialist as soon as possible. On March 18 she went to the emergency center and underwent a CAT scan of the chest and was told that she had cancer in her lung and wanted to admit the patient but she refused as she preferred to return home to see her own physician. Patient also has had 10 pounds of weight loss over the past month. 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 Patient was started on chemotherapy and radiation was seen in the office still seen oncology regularly. She presented to the emergency department today at [facility] because of severe dehydration not been able to eat or drink through her radiation and chemotherapy had lost quite bed weight have intractable nausea not able to tolerate any food or fluid down. Had blood work performed showed significant thrombocytopenia with leukopenia and anemia most likely suppression from her chemotherapy electrolyte imbalance with significantly low magnesium at 1.5 troponin was normal albumin level was quite bit low patient UA came back positive for urinary tract infection and there is an area her urine test positive from May 10 when patient asked apparently was not treated not acute ordered the tests at the time. Chest x-ray today showed reduce right suprahilar soft tissue mass which is original malignancy with bilateral upper lobe masses favored over pneumonia. Patient was started on IV antibiotic, hydration antiemesis medication will be admitted to the hospital repeat CBC to make sure she is not going into pancytopenia from chemotherapy also see if there is any culture can be guided this to her management and treatment of the time. 05/16: Patient is seen today in the emergency center waiting for a bed on the oncology unit. Patient feels that she has little better today. She states pain is going towards her back. She is complaining of difficulty with swallowing and speech therapy and dietitian consults added. Patient has had weight loss. Patient is afebrile, heart rate 112, blood pressure 132/87, pulse ox 89% on room air and 94% on 2 L nasal cannula. WBC 3.6, hemoglobin 8.8, platelet count 102. Electrolytes normal. BUN 6 and creatinine 0.39. Consult added for oncology REVIEW OF SYSTEMS Constitutional: No fever, no chills, no night sweats. Reports weight loss. Reports weakness, reports fatigue no lethargy. No daytime sleepiness. EENT: No headache. No blurred vision or double vision, no loss of vision. No loss of Hearing, no ringing in the ears, no dizziness. No nasal drainage or congestion. No epistaxis. No sore throat. Lungs: Reports shortness of breath, reports cough, no sputum production. No wheezing. Cardiovascular: Reports chest pain, no lower extremity edema. No palpitations. No paroxysmal nocturnal dyspnea. No orthopnea. No lightheadedness or dizziness. No syncopal episodes. Abdominal: No abdominal pain. Reports nausea, no vomiting. Reports diarrhea. No constipation. No bloody or tarry stools. No loss of appetite. Genitourinary: No dysuria, increased frequency, urgency. No urinary retention. Musculoskeletal: No myalgias. No muscle weakness, no gait dysfunction, no frequent falls. No back pain. No neck pain. Integumentary: No wounds, no lesions. No rash or pruritus. No unusual bruising. No change in hair or nails. Neurologic: No aphasia. No facial droop. No change in mentation. No head injury. No headache. No paralysis. No paresthesia. Reports difficulty swallowing. Psychiatric: No depression. No anxiety. No mood swings. Endocrine: No abnormal blood sugars. No weight change. No excessive sweating or thirst. PHYSICAL EXAMINATION Gen: This is a 66-year-old cachectic-appearing female. She is resting in the ER stretcher and appears to be in no acute respiratory distress. HEENT: Head is atraumatic, normocephalic. Pupils equal, round. Sclerae is anicteric. NECK: Supple. No JVD. No lymphadenopathy. No thyromegaly. LUNGS: Clear to auscultation. No wheezes or rhonchi. No intercostal retractions. No accessory muscle usage. HEART: Regular rate and rhythm. No murmur. Engorged veins throughout the chest and abdomen. ABDOMEN: Soft. Bowel sounds are present. No masses. No tenderness. EXTREMITIES: No pedal edema. No calf tenderness. NEUROLOGICAL: Patient is awake, alert and oriented x3. Cranial nerves 2 through 12 are grossly intact. ASSESSMENT AND PLAN - intractable nausea and vomiting with severe dehydration: Most likely the effect of for chemotherapy and severe gastritis, will continue patient on PPI, hydration and anti-emetic medication. - pancytopenia: Most likely the effect of chemotherapy, patient will continue supportive care, antibiotics hydration repeat CBC next 24 hours. - E. coli Urinary tract infection: With positive urine from the nd patient be on Rocephin. - Possible obstructive pneumonitis specially over the mass in the right side despite significant reduction in the size of her mass specially with patient symptoms with the cough shortness of breath hypoxia antibiotics along with updraft treatment and oxygen. 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 She was diagnosed with small cell carcinoma was started on chemotherapy and radiation. - Severe protein calorie malnutrition with recent weight loss and BMI 14. Regular diet plus Ensure twice daily, dietitian consult. - electronically imbalance with severe hypomagnesemia: Magnesium supplement to be done for now. - Anemia: Most likely suppression from her chemotherapy patient can be benefit from Neupogen and Epogen at this point. - Active tobacco use and dependence. Smoking cessation. - Difficulty swallowing and area to radiation esophagitis. Consult with speech therapy. GI prophylaxis. Protonix. - DVT prophylaxis. no heparin will be used this point specially with her thrombocytopenia will continue knee-high NAE hose and Venodyne boots. - CODE STATUS: Full code. DISCHARGE PLAN Most likely return home when more stable. Impression and plan of care have been directed as dictated by the signing physician. Luiza Lewis nurse practitioner acting as scribe for signing physician. Objective - Vital Signs Vital signs: Vital Signs Temp 97.9 F 05/16/22 02:00 Pulse 101 H 05/16/22 02:00 Resp 14 05/16/22 02:00 BP 117/73 05/16/22 02:00 Pulse Ox 94 L 05/16/22 02:00 FiO2 Intake & Output 05/15/22 05/16/22 05/16/22 18:59 06:59 18:59 Intake Total 1430 Balance 1430 Weight 31.751 kg Intake: IV 1430 Sodium Chloride 0.9% 1, 1430 000 ml @ 130 mls/hr IV . Q7H42M [facility] Rx#:[id number] Other: # Voids 3 - Labs CBC & Chem 7: 05/16/22 08:00 05/16/22 08:00 Labs: Abnormal Lab Results - Last 24 Hours (Table) 05/15/22 05/15/22 05/15/22 Range/Units 11:57 11:57 11:57 WBC 2.0 L (3.8-10.6) k/uL RBC 3.03 L (3.80-5.40) m/uL Hgb 9.7 L D (11.4-16.0) gm/dL Hct 29.2 L (34.0-46.0) % Plt Count 97 L D (150-450) k/uL Lymphocytes # (Manual) 0.18 L (1.0-4.8) k/uL Metamyelocytes # (Man) 0.02 H (0) k/uL Sodium 134 L (137-145) mmol/L Creatinine 0.42 L (0.52-1.04) mg/dL Calcium 8.1 L (8.4-10.2) mg/dL Magnesium 1.5 L (1.6-2.3) mg/dL Total Protein 5.0 L (6.3-8.2) g/dL Albumin 2.7 L (3.5-5.0) g/dL Urine Appearance Cloudy H (Clear) Urine Ketones 1+ H (Negative) Urine Blood Small H (Negative) Urine Nitrite Positive H (Negative) Urine Bacteria Moderate H (None) /hpf Urine Mucus Few H (None) /hpf
[2022-05-16 12:31] LABS: Band Neutrophils % 5 %; Eosinophils # (M) 0.04 k/uL (0-0.7); Lymphocytes # (M) 0.14 k/uL (1.0-4.8); Metamyelocytes # (M) 0.04 k/uL (0); Metamyelocytes % 1 %; Monocytes # (M) 0.72 k/uL (0-1.0); Neutrophils % (M) 71 %; Nucleated Red Blood Cells 0 /100 WBC (0-0); Total Cells Counted 200
--- NOTE | 2022-05-16 16:31 | P.CONS ---
History of Present Illness - Reason for Consult Consult date: 05/16/22 lung cancer Requesting physician: Luiza Lewis - Chief Complaint right flank pain, odynophagia - History of Present Illness Ms. Patel is a pleasant female, initially seen in consult at [facility] on 03/21/22. She had developed progressive SOB, chest pressure and dry cough that started about 2-3 months prior and had been progressive since. She was seen in [place] in ER and was found to have abnormal chest imaging. She returned home to [place], came into the ER. Chest x-ray on 04/08 showed right hilar mass and evidence of COPD. CT chest with contrast on 03/21/22 showed diffuse emphysema, complete obstruction of the SVC with multiple collaterals. There was a 3.2 cm masslike infiltrate in the right posterior lung base. In the hospital the patient also had a CT brain, and then MRI, which were negative for evidence of metastatic disease. She underwent bronchoscopy on 03/22/22, revealing endobronchial tumor at the distal aspect of the kit and encroaching on the opening of the right upper lobe bronchus. Endobronchial tumor was also seen in the medial wall of the right middle lobe. Pathology came back positive for small cell carcinoma. 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 She was seen for her first office visit on 04/02/22. Staging PET 03/30/22 showed uptake in the right supraclavicular mass or adenopathy measuring 5 cm, uptake in the large mediastinal and right paratracheal mass, as well as in mediastinal adenopathy which appeared to be somewhat confluent, involving the anterior superior mediastinum and kit. There was a 1.3 cm central right lower lobe nodule with SUV of 4.35. There is no evidence of metastatic disease. Patient has long-standing history of smoking, since her teens, generally in about a pack a day range. The time of diagnosis is smoking about half pack a day. Medical history was otherwise benign. She was referred to Radiation Oncology for concurrent chemotherapy radiation. She started [facility]-16 and cisplatin on 04/10/22. She is status post 2 cycles. She started RT on 04/12/22. She has been in ofc for f/u as scheduled and done fairly well. She presents to the ER with c/o rt side pain, out of pain meds so pain has worsened and caused to her to lose her appetite, now she is weak. UA suspicious for UTI as well. Denies fever, has mild odynophagia, no palpitations, abd pain, dysuria, hematuria, acute changes in bowel habits. Review of Systems 10 point ROS is neg except as stated in HPI Past Medical History Past Medical History: Cancer Additional Past Medical History / Comment(s): lung mass History of Any Multi-Drug Resistant Organisms: None Reported Past Surgical History: Orthopedic Surgery Additional Past Surgical History / Comment(s): ovary removed Past Anesthesia/Blood Transfusion Reactions: No Reported Reaction Past Psychological History: Depression Smoking Status: Current every day smoker Past Alcohol Use History: Occasional Past Drug Use History: None Reported - Past Family History Sister(s) Family Medical History: Myocardial Infarction (HI) Additional Family Medical History / Comment(s): Sister had a HI at the age of 67yrs. Mother Family Medical History: No Reported History Additional Family Medical History / Comment(s): Mother lived to be 94 yrs old. She was a smoker. Father Family Medical History: Chest Pain / Angina Additional Family Medical History / Comment(s): Father had breathing problems. He lived to be 89yrs old. Medications and Allergies Home Medications Medication Instructions Recorded Confirmed Type HYDROcodone/APAP 5-325MG [[place] 0.5 - 1 tab PO Q6H PRN 03/20/22 05/15/22 History 5-325] DULoxetine HCL [Cymbalta] 30 mg PO DAILY 03/21/22 05/15/22 History busPIRone HCl [Buspar] 10 mg PO BID 03/21/22 05/15/22 History Allergies Allergy/AdvReac Type Severity Reaction Status Date / Time egg AdvReac Unknown Verified 05/16/22 16:03 Physical Exam Vitals: Vital Signs Temp Pulse Pulse Resp BP Pulse Ox 05/16/22 14:43 97.7 F 103 H 18 119/75 90 L 05/16/22 08:25 94 L 05/16/22 07:42 97.9 F 112 H 14 132/87 89 L 05/16/22 02:00 97.9 F 101 H 14 117/73 94 L 05/15/22 20:00 98.0 F 108 H 12 122/81 94 L Intake and Output 05/16/22 05/16/22 05/16/22 06:59 14:59 22:59 Intake Total 1430 Balance 1430 Intake: IV 1430 Sodium Chloride 0.9% 1, 1430 000 ml @ 130 mls/hr IV . Q7H42M [facility] Rx#:[id number] Other: # Voids 3 - Constitutional General appearance: cooperative, no acute distress, thin - EENT Eyes: anicteric sclerae, EOMI ENT: hearing grossly normal, normal oropharynx - Neck Neck: no lymphadenopathy - Respiratory Respiratory: bilateral: CTA - Cardiovascular Rhythm: regular Heart sounds: normal: S1, S2 Abnormal Heart Sounds: no systolic murmur, no diastolic murmur, no rub, no S3 Gallop, no S4 Gallop, no click, no other leg Peripheral Edema: bilateral: None - Gastrointestinal venous congestion visible in abd General gastrointestinal: normal bowel sounds, soft - Neurologic Neurologic: CNII-XII intact - Musculoskeletal Musculoskeletal: generalized weakness, strength equal bilaterally - Psychiatric A&OX3, pt made some comments that were not on topic with our discussion. Psychiatric: appropriate affect Results CBC & Chem 7: 05/16/22 08:00 05/16/22 08:00 Labs: Abnormal Lab Results - Last 24 Hours (Table) 05/16/22 05/16/22 Range/Units 08:00 08:00 WBC 3.6 L (3.8-10.6) k/uL RBC 2.96 L (3.80-5.40) m/uL Hgb 8.8 L (11.4-16.0) gm/dL Hct 29.0 L (34.0-46.0) % MCHC 30.4 L (31.0-37.0) g/dL Plt Count 102 L (150-450) k/uL Lymphocytes # (Manual) 0.14 L (1.0-4.8) k/uL Metamyelocytes # (Man) 0.04 H (0) k/uL BUN 6 L (7-17) mg/dL Creatinine 0.39 L (0.52-1.04) mg/dL Calcium 8.0 L (8.4-10.2) mg/dL AST 12 L (14-36) U/L Total Protein 4.7 L (6.3-8.2) g/dL Albumin 2.5 L (3.5-5.0) g/dL Chest x-ray: report reviewed Assessment and Plan (1) Small cell lung cancer Current Visit: Yes Status: Acute Code(s): C34.90 - MALIGNANT NEOPLASM OF UNSP PART OF UNSP BRONCHUS OR LUNG SNOMED Code(s): 448043880 (2) Nausea Current Visit: Yes Status: Acute Code(s): R11.0 - NAUSEA SNOMED Code(s): 603765548 (3) UTI (urinary tract infection) Current Visit: Yes Status: Acute Code(s): N39.0 - URINARY TRACT INFECTION, SITE NOT SPECIFIED SNOMED Code(s): 63120507 (4) Antineoplastic chemotherapy induced pancytopenia Current Visit: Yes Status: Acute Code(s): D61.810 - ANTINEOPLASTIC CHEMOTHERAPY INDUCED PANCYTOPENIA; T45.1X5A - ADVERSE EFFECT OF ANTINEOPLASTIC AND IMMUNOSUP DRUGS, INIT SNOMED Code(s): 766117229520186 Plan: UTI contributing to her symptoms-nausea, poor appetite. Abx started, IVF Pain from malignancy-pt will take pain meds, titrate for comfort Chemo induced pancytopenia-mild, no transfusions needed, ANC adequate, no GCSF needed Supporitve meds for symptoms BC requested Attests: I have seen and examined pt, performed H&P, developed impression and plan of care. Discussed with dictator, agree with dictation, documented as a scribe
[2022-05-16] MEDS: LIDOCAINE 5% PATCH TOPICAL SCH (17:39)
[2022-05-16] MEDS: MAG HYDROX/AL HYDROX/SIMETH 30 ML, diphenhydrAMINE ELIXIR 75 MG, LIDOCAINE VISCOUS 2% 3... PO SCH ×9 (17:43→21:09)
[2022-05-16] MEDS: dexAMETHasone 4 MG TAB PO SCH (21:06)
[2022-05-17] MEDS: DULoxetine HCL 30 MG CAPSULE.DR PO SCH (08:30)
[2022-05-17] MEDS: dexAMETHasone 4 MG TAB PO SCH ×2 (08:30→20:33)
[2022-05-17] MEDS: busPIRone HCl 10 MG TAB PO SCH ×2 (08:30→20:33)
[2022-05-17] MEDS: LIDOCAINE 5% PATCH TOPICAL SCH (08:35)
[2022-05-17] MEDS: MAG HYDROX/AL HYDROX/SIMETH 30 ML, diphenhydrAMINE ELIXIR 75 MG, LIDOCAINE VISCOUS 2% 3... PO SCH ×9 (09:08→20:34)
[2022-05-17] MEDS: HYDROcodone/APAP 5-325MG 1 EACH TAB PO PRN ×3 (09:10→22:55)
--- NOTE | 2022-05-17 09:55 | P.PN ---
Subjective Progress Note Date: 05/17/22 Principal diagnosis: UTI, odynophagia In f/u today pt is sitting up in bed eating applesauce. She has pain with inspiration on the right side, he swallowing is a little improved, no further nausea, no new urinary symptoms to report. Objective - Vital Signs Vital signs: Vital Signs Temp 99.2 F 05/17/22 05:00 Pulse 100 05/17/22 05:00 Resp 16 05/17/22 05:00 BP 130/81 05/17/22 05:00 Pulse Ox 92 L 05/17/22 05:00 FiO2 Intake & Output 05/16/22 05/17/22 05/17/22 18:59 06:59 18:59 Intake Total 150 900 Balance 150 900 Intake: Intake, IV Titration 150 900 Amount Sodium Chloride 0.9% 1, 150 900 000 ml @ 75 mls/hr IV . [id number] [facility] Rx#:[id number] Other: Voiding Method Toilet # Voids 4 - Constitutional Constitutional Comment(s): Pt clearer today when speaking to her General appearance: Present: cooperative, no acute distress, thin - EENT Eyes: Present: anicteric sclerae, EOMI ENT: Present: hearing grossly normal - Respiratory Respiratory: bilateral: CTA - Cardiovascular Rhythm: regular Heart sounds: normal: S1, S2 Abnormal Heart Sounds: Absent: systolic murmur, diastolic murmur, rub, S3 Gallop, S4 Gallop, click, other - Peripheral edema leg Peripheral Edema: bilateral: None - Gastrointestinal General gastrointestinal: Present: normal bowel sounds, soft - Integumentary Integumentary: Present: normal - Neurologic Neurologic: Present: CNII-XII intact (grossly) - Psychiatric Psychiatric: Present: A&O x's 3, appropriate affect, intact judgment & insight - Labs CBC & Chem 7: 05/16/22 08:00 05/16/22 08:00 Labs: Abnormal Lab Results - Last 24 Hours (Table) 05/16/22 Range/Units 08:00 Lymphocytes # (Manual) 0.14 L (1.0-4.8) k/uL Metamyelocytes # (Man) 0.04 H (0) k/uL Assessment and Plan (1) Small cell lung cancer Current Visit: Yes Status: Acute Code(s): C34.90 - MALIGNANT NEOPLASM OF UNSP PART OF UNSP BRONCHUS OR LUNG SNOMED Code(s): 330198774 (2) Nausea Current Visit: Yes Status: Acute Code(s): R11.0 - NAUSEA SNOMED Code(s): 842096518 (3) UTI (urinary tract infection) Current Visit: Yes Status: Acute Code(s): N39.0 - URINARY TRACT INFECTION, SITE NOT SPECIFIED SNOMED Code(s): 26309863 (4) Antineoplastic chemotherapy induced pancytopenia Current Visit: Yes Status: Acute Code(s): D61.810 - ANTINEOPLASTIC CHEMOTHERAPY INDUCED PANCYTOPENIA; T45.1X5A - ADVERSE EFFECT OF ANTINEOPLASTIC AND IMMUNOSUP DRUGS, INIT SNOMED Code(s): 348914879370164 Plan: UTI contributing to her symptoms-nausea, poor appetite. Abx started, IVF. Pt reports no nausea today, she is eating and feels hungry. Marinol was added Pain from malignancy-pt will take pain meds, titrate for comfort. Dex added, pain is stable today. PPI added for prevention of steroid induced gastritis. Chemo induced pancytopenia-mild, no transfusions needed, ANC adequate, no GCSF needed Supportive meds for other symptoms GI and DVT prophylaxis BC requested Sent dex and marinol Rx to pharm. LUISA for [employer] to verify co-pay Discussed case with Rad Onc and Internal Medicine
--- NOTE | 2022-05-17 10:02 | P.PN ---
Subjective Progress Note Date: 05/17/22 HISTORY OF PRESENT ILLNESS This is a 66-year-old female patient of Dr. Luque with past medical history of COPD, tobacco use and dependence, recurrent depression and generalized anxiety disorder. In January 2018, patient underwent low-dose CAT scan which revealed moderate emphysematous change without suspicious nodules. Patient was to have a repeat of this but due to Covid she failed to follow-up. She is now in [place] for the past 4 months and started developing significant pain in her chest and shoulders along with a dry cough, headache, right-sided earache as well as naus ea and diarrhea. She went to a clinic in [place] and was told that she had a mass in her lungs and that she needed to get into specialist as soon as possible. On March 18 she went to the emergency center and underwent a CAT scan of the chest and was told that she had cancer in her lung and wanted to admit the patient but she refused as she preferred to return home to see her own physician. Patient also has had 10 pounds of weight loss over the past month. 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 Patient was started on chemotherapy and radiation was seen in the office still seen oncology regularly. She presented to the emergency department today at [facility] because of severe dehydration not been able to eat or drink through her radiation and chemotherapy had lost quite bed weight have intractable nausea not able to tolerate any food or fluid down. Had blood work performed showed significant thrombocytopenia with leukopenia and anemia most likely suppression from her chemotherapy electrolyte imbalance with significantly low magnesium at 1.5 troponin was normal albumin level was quite bit low patient UA came back positive for urinary tract infection and there is an area her urine test positive from May 10 when patient asked apparently was not treated not acute ordered the tests at the time. Chest x-ray today showed reduce right suprahilar soft tissue mass which is original malignancy with bilateral upper lobe masses favored over pneumonia. Patient was started on IV antibiotic, hydration antiemesis medication will be admitted to the hospital repeat CBC to make sure she is not going into pancytopenia from chemotherapy also see if there is any culture can be guided this to her management and treatment of the time. 05/16: Patient is seen today in the emergency center waiting for a bed on the oncology unit. Patient feels that she has little better today. She states pain is going towards her back. She is complaining of difficulty with swallowing and speech therapy and dietitian consults added. Patient has had weight loss. Patient is afebrile, heart rate 112, blood pressure 132/87, pulse ox 89% on room air and 94% on 2 L nasal cannula. WBC 3.6, hemoglobin 8.8, platelet count 102. Electrolytes normal. BUN 6 and creatinine 0.39. Consult added for oncology 05/17: Patient has been seen by oncology no plan for GCSF. Continue current management and blood culture was ordered. Patient is maintained on ceftriaxone. Patient has been afebrile, heart rate 100, blood pressure 130/81, pulse ox 92% on room air. Patient is found sleeping, sister is at bedside. Patient awakens easily. She states she is still having difficulty eating. She denies any vomiting. She was seen yesterday by speech therapy with recommendations for regular diet and liquids. We have started the patient on an sharp will also add in a consult with dietitian. We will add a consult for physical therapy as patient is quite weak and concerned that she is living at home alone. Oncology will address. Patient has been started on dexamethasone 4 mg twice daily, Marinol 2.5 mg twice daily, lidocaine patch, Protonix and Senokot. Plan is to monitor patient overnight and probable discharge tomorrow. REVIEW OF SYSTEMS Constitutional: No fever, no chills, no night sweats. Reports weight loss. Reports weakness, reports fatigue no lethargy. No daytime sleepiness. EENT: No headache. No blurred vision or double vision, no loss of vision. No loss of Hearing, no ringing in the ears, no dizziness. No nasal drainage or congestion. No epistaxis. No sore throat. Lungs: Reports shortness of breath, reports cough, no sputum production. No wheezing. Cardiovascular: Reports chest pain, no lower extremity edema. No palpitations. No paroxysmal nocturnal dyspnea. No orthopnea. No lightheadedness or dizziness. No syncopal episodes. Abdominal: No abdominal pain. Reports nausea, no vomiting. Reports diarrhea. No constipation. No bloody or tarry stools. Reports loss of appetite. Genitourinary: No dysuria, increased frequency, urgency. No urinary retention. Musculoskeletal: No myalgias. No muscle weakness, no gait dysfunction, no frequent falls. No back pain. No neck pain. Integumentary: No wounds, no lesions. No rash or pruritus. No unusual bruising. No change in hair or nails. Neurologic: No aphasia. No facial droop. No change in mentation. No head injury. No headache. No paralysis. No paresthesia. Reports difficulty swallowing. Psychiatric: No depression. No anxiety. No mood swings. Endocrine: No abnormal blood sugars. No weight change. No excessive sweating or thirst. PHYSICAL EXAMINATION Gen: This is a 66-year-old cachectic-appearing female. She is resting in the ER stretcher and appears to be in no acute respiratory distress. HEENT: Head is atraumatic, normocephalic. Pupils equal, round. Sclerae is anicteric. NECK: Supple. No JVD. No lymphadenopathy. No thyromegaly. LUNGS: Clear to auscultation. No wheezes or rhonchi. No intercostal retractions. No accessory muscle usage. HEART: Regular rate and rhythm. No murmur. Engorged veins throughout the chest and abdomen. ABDOMEN: Soft. Bowel sounds are present. No masses. No tenderness. EXTREMITIES: No pedal edema. No calf tenderness. NEUROLOGICAL: Patient is awake, alert and oriented x3. Cranial nerves 2 through 12 are grossly intact. ASSESSMENT AND PLAN - intractable nausea and vomiting with severe dehydration: Most likely the effect of for chemotherapy and severe gastritis, will continue patient on PPI, hydration and anti-emetic medication. - pancytopenia: Most likely the effect of chemotherapy, patient will continue supportive care, antibiotics hydration repeat CBC next 24 hours. Oncology consult appreciated. - E. coli Urinary tract infection: With positive urine from the 22nd patient be on Rocephin. Blood culture is in progress. - Possible obstructive pneumonitis specially over the mass in the right side despite significant reduction in the size of her mass specially with patient symptoms with the cough shortness of breath hypoxia antibiotics along with updraft treatment and oxygen. Incentive spirometry added. 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 She was diagnosed with small cell carcinoma was started on chemotherapy and radiation. - Severe protein calorie malnutrition with recent weight loss and BMI 14. Regular diet plus Ensure twice daily, dietitian consult. - electronically imbalance with severe hypomagnesemia: Magnesium supplement to be done for now. - Anemia: Most likely suppression from her chemotherapy patient can be benefit from Neupogen and Epogen at this point. - Active tobacco use and dependence. Smoking cessation. - Difficulty swallowing and area to radiation esophagitis. Consult with speech therapy. GI prophylaxis. Protonix. - DVT prophylaxis. no heparin will be used this point specially with her thrombocytopenia will continue knee-high NAE hose and Venodyne boots. - CODE STATUS: Full code. DISCHARGE PLAN Home on Saturday. Impression and plan of care have been directed as dictated by the signing physic ian. Luiza Lewis nurse practitioner acting as scribe for signing physician. Objective - Vital Signs Vital signs: Vital Signs Temp 99.2 F 05/17/22 05:00 Pulse 100 05/17/22 05:00 Resp 16 05/17/22 05:00 BP 130/81 05/17/22 05:00 Pulse Ox 92 L 05/17/22 05:00 FiO2 Intake & Output 05/16/22 05/17/22 05/17/22 18:59 06:59 18:59 Intake Total 150 900 Balance 150 900 Intake: Intake, IV Titration 150 900 Amount Sodium Chloride 0.9% 1, 150 900 000 ml @ 75 mls/hr IV . [id number] [facility] Rx#:[id number] Other: Voiding Method Toilet # Voids 4 - Labs CBC & Chem 7: 05/16/22 08:00 05/16/22 08:00 Labs: Abnormal Lab Results - Last 24 Hours (Table) 05/16/22 05/16/22 Range/Units 08:00 08:00 WBC 3.6 L (3.8-10.6) k/uL RBC 2.96 L (3.80-5.40) m/uL Hgb 8.8 L (11.4-16.0) gm/dL Hct 29.0 L (34.0-46.0) % MCHC 30.4 L (31.0-37.0) g/dL Plt Count 102 L (150-450) k/uL Lymphocytes # (Manual) 0.14 L (1.0-4.8) k/uL Metamyelocytes # (Man) 0.04 H (0) k/uL BUN 6 L (7-17) mg/dL Creatinine 0.39 L (0.52-1.04) mg/dL Calcium 8.0 L (8.4-10.2) mg/dL AST 12 L (14-36) U/L Total Protein 4.7 L (6.3-8.2) g/dL Albumin 2.5 L (3.5-5.0) g/dL
[2022-05-17 10:14] LABS: HCT 32.7 % (34.0-46.0); HGB 10.8 gm/dL (11.4-16.0); MCH 32.1 pg (25.0-35.0); MCHC 33.1 g/dL (31.0-37.0); MCV 97.1 fL (80.0-100.0); Mean Platelet Volume 9.1; RBC 3.37 m/uL (3.80-5.40); RDW 15.2 % (11.5-15.5); WBC 8.2 k/uL (3.8-10.6)
[2022-05-17 10:16] LABS: Platelet Count 162 k/uL (150-450)
[2022-05-17] MEDS: PANTOPRAZOLE 40 MG TABLET PO SCH ×2 (12:19→17:38)
[2022-05-17] MEDS: SENNOSIDES-DOCUSATE SODIUM 1 EACH TAB PO SCH ×2 (12:19→20:33)
--- NOTE | 2022-05-17 14:12 | P.PN ---
Subjective Progress Note Date: 05/17/22 Principal diagnosis: chest-wall pain; difficulty swallowing. The patient reports she is feeling a bit better this morning. She still has some right sided chest wall discomfort. She states her swallowing seems to be improved. She was found to have a UTI on admission, and retrospectively notes she was having more frequent urination. Objective - Vital Signs Vital signs: Vital Signs Temp 99.2 F 05/17/22 05:00 Pulse 100 05/17/22 05:00 Resp 16 05/17/22 05:00 BP 130/81 05/17/22 05:00 Pulse Ox 92 L 05/17/22 05:00 FiO2 Intake & Output 05/16/22 05/17/22 05/17/22 18:59 06:59 18:59 Intake Total 150 900 Balance 150 900 Intake: Intake, IV Titration 150 900 Amount Sodium Chloride 0.9% 1, 150 900 000 ml @ 75 mls/hr IV . [id number] [facility] Rx#:[id number] Other: Voiding Method Toilet # Voids 4 - Constitutional General appearance: Present: no acute distress, thin - EENT Eyes: Present: EOMI, PERRLA ENT: Present: hearing grossly normal - Neck Neck: Absent: lymphadenopathy - Respiratory Respiratory: bilateral: CTA - Cardiovascular Rhythm: regular - Gastrointestinal General gastrointestinal: Present: soft. Absent: distended - Integumentary Integumentary: Absent: rash - Neurologic Neurologic: Present: CNII-XII intact - Psychiatric Psychiatric: Present: A&O x's 3, appropriate affect - Labs CBC & Chem 7: 05/17/22 09:27 05/16/22 08:00 Labs: Abnormal Lab Results - Last 24 Hours (Table) 05/17/22 Range/Units 09:27 RBC 3.37 L (3.80-5.40) m/uL Hgb 10.8 L (11.4-16.0) gm/dL Hct 32.7 L (34.0-46.0) % Assessment and Plan Assessment: The patient is a 66-year-old female with a history of recently diagnosed limited stage small cell lung cancer of the right lung presenting with bulky mediastinal adenopathy and SVC syndrome. She initiated concurrent chemoradiation, having finished 2 cycles of chemotherapy and she only has 11 radiation treatments remaining. 1. Radiation esophagitis: Patient reports swallowing has improved since admission. Still recommend a short break from RT - will plan to resume 05/22/22. Continue magic mouth wash + patient has obtained Lortab elixir to use at home. 2. UTI: Improving, on antibiotics. 3. Weight loss: Cece secondary to #1 - has met with our power electronics engineer as an outpatient. Continue to encourage increased oral intake and supplement with high calorie protein shakes. Continue appetite stimulant outpatient. Time with Patient: Less than 30
[2022-05-17] MEDS: SODIUM CHLORIDE 0.9% 1,000 ML IV SCH (15:21)
[2022-05-17 16:58] VITALS: BMI 12.0
[2022-05-17 19:51] VITALS: PULSE 99; RESP 16
[2022-05-18] MEDS: SODIUM CHLORIDE 0.9% 1,000 ML IV SCH (04:38)
[2022-05-18 04:40] VITALS: BP 138/87; TEMP 97.9
--- NOTE | 2022-05-18 08:03 | P.DS ---
Providers Date of admission: 05/17/22 09:21 Expected date of discharge: 05/18/22 Attending physician: Stephan Luque Consults: 05/16/22 08:29 Consult Physician Routine Consulting Provider: Isma Alcala Consult Reason/Comments: lung ca Do you want consulting provider notified?: Yes Primary care physician: Stephan Luque [facility] Course: HISTORY OF PRESENT ILLNESS This is a 66-year-old female patient of Dr. Luque with past medical history of COPD, tobacco use and dependence, recurrent depression and generalized anxiety disorder. In January 2018, patient underwent low-dose CAT scan which revealed moderate emphysematous change without suspicious nodules. Patient was to have a repeat of this but due to Covid she failed to follow-up. She is now in [place] for the past 4 months and started developing significant pain in her chest and shoulders along with a dry cough, headache, right-sided earache as well as nausea and diarrhea. She went to a clinic in [place] and was told that she had a mass in her lungs and that she needed to get into specialist as soon as possible. On March 18 she went to the emergency center and underwent a CAT scan of the chest and was told that she had cancer in her lung and wanted to admit the patient but she refused as she preferred to return home to see her own physician. Patient also has had 10 pounds of weight loss over the past month. 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 Patient was started on chemotherapy and radiation was seen in the office still seen oncology regularly. She presented to the emergency department today at [facility] because of severe dehydration not been able to eat or drink through her radiation and chemotherapy had lost quite bed weight have intractable nausea not able to tolerate any food or fluid down. Had blood work performed showed significant thrombocytopenia with leukopenia and ane domenica most likely suppression from her chemotherapy electrolyte imbalance with significantly low magnesium at 1.5 troponin was normal albumin level was quite bit low patient UA came back positive for urinary tract infection and there is an area her urine test positive from May 10 when patient asked apparently was not treated not acute ordered the tests at the time. Chest x-ray today showed reduce right suprahilar soft tissue mass which is original malignancy with bilateral upper lobe masses favored over pneumonia. Patient was started on IV antibiotic, hydration antiemesis medication will be admitted to the hospital repeat CBC to make sure she is not going into pancytopenia from chemotherapy also see if there is any culture can be guided this to her management and treatment of the time. 05/16: Patient is seen today in the emergency center waiting for a bed on the oncology unit. Patient feels that she has little better today. She states pain is going towards her back. She is complaining of difficulty with swallowing and speech therapy and dietitian consults added. Patient has had weight loss. Patient is afebrile, heart rate 112, blood pressure 132/87, pulse ox 89% on room air and 94% on 2 L nasal cannula. WBC 3.6, hemoglobin 8.8, platelet count 102. Electrolytes normal. BUN 6 and creatinine 0.39. Consult added for oncology 05/17: Patient has been seen by oncology no plan for GCSF. Continue current management and blood culture was ordered. Patient is maintained on ceftriaxone. Patient has been afebrile, heart rate 100, blood pressure 130/81, pulse ox 92% on room air. Patient is found sleeping, sister is at bedside. Patient awakens easily. She states she is still having difficulty eating. She denies any vomiting. She was seen yesterday by speech therapy with recommendations for regular diet and liquids. We have started the patient on an sharp will also add in a consult with dietitian. We will add a consult for physical therapy as patient is quite weak and concerned that she is living at home alone. Oncology will address. Patient has been started on dexamethasone 4 mg twice daily, Marinol 2.5 mg twice daily, lidocaine patch, Protonix and Senokot. Plan is to monitor patient overnight and probable discharge tomorrow. 05/18: The patient has been seen by dietitian, continued on protein supplements and was started on dexamethasone 4 chest pain but may improve appetite as well.patient remains afebrile, heart rate 99, blood pressure 130/87, pulse ox 91-95%. Blood culture showing no growth after 24 hours. Urine culture from 05/10 is positive for E. coli resistant to fluoroquinolones, tetracycline and sulfa, ampicillin. Patient has been seen and followed by oncology as well as radiation oncology. Patient placed on norco elixir but concern that she has continued pain in the esophagus with eating. Recommended taking Pratt prior to eating and avoid hot/cold foods. Patient will be going to her sister's home. Patient will be discharged home today in stable condition. DISCHARGE DIAGNOSES - intractable nausea and vomiting with severe dehydration: Most likely the effect of for chemotherapy and severe gastritis - pancytopenia: Most likely the effect of chemotherapy - E. coli Urinary tract infection - Possible obstructive pneumonitis - Small cell carcinoma, lung - Severe protein calorie malnutrition with recent weight loss and BMI 14. - Electrolyte imbalance with severe hypomagnesemia - Anemia of chronic disease secondary to cancer and chemotherapy - Active tobacco use and dependence. Smoking cessation. - Difficulty swallowing and area to radiation esophagitis. DISCHARGE PLAN Home Greater than 35 minutes was utilized and coordinating patient's discharge. Impression and plan of care have been directed as dictated by the signing physician. Luiza Lewis nurse practitioner acting as scribe for signing physician. Patient Condition at Discharge: Stable Plan - Discharge Summary Discharge Rx Participant: Yes New Discharge Prescriptions: New dronabinoL [Marinol] 2.5 mg PO AC-BID 3 Days #60 cap Sennosides-Docusate Sodium [Senokot-S] 1 each PO BID tab dexAMETHasone 4 mg PO BID #60 tablet Pantoprazole [Protonix] 40 mg PO BID #60 tab cefUROXime axetiL [Ceftin] 500 mg PO BID 7 Days #14 tab Continue HYDROcodone/APAP 5-325MG [Pratt 5-325] 0.5 - 1 tab PO Q6H PRN PRN Reason: Pain busPIRone HCl [Buspar] 10 mg PO BID DULoxetine HCL [Cymbalta] 30 mg PO DAILY Discharge Medication List HYDROcodone/APAP 5-325MG [Pratt 5-325] 0.5 - 1 tab PO Q6H PRN 03/20/22 [History] DULoxetine HCL [Cymbalta] 30 mg PO DAILY 03/21/22 [History] busPIRone HCl [Buspar] 10 mg PO BID 03/21/22 [History] Pantoprazole [Protonix] 40 mg PO BID #60 tab 05/17/22 [Rx] dexAMETHasone 4 mg PO BID #60 tablet 05/17/22 [Rx] dronabinoL [Marinol] 2.5 mg PO AC-BID 3 Days #60 cap 05/17/22 [Rx] Sennosides-Docusate Sodium [Senokot-S] 1 each PO BID tab 05/18/22 [Rx] cefUROXime axetiL [Ceftin] 500 mg PO BID 7 Days #14 tab 05/18/22 [Rx] Follow up Appointment(s)/Referral(s): Isma Alcala MD [STAFF PHYSICIAN] - 05/22/22 8:30 am (Chemo appt, no plan to change at this time) Stephan Luque MD [Primary Care Provider] - 1 Week Discharge Disposition: HOME SELF-CARE
[2022-05-18] MEDS: DULoxetine HCL 30 MG CAPSULE.DR PO SCH (08:20)
[2022-05-18] MEDS: SENNOSIDES-DOCUSATE SODIUM 1 EACH TAB PO SCH (08:20)
[2022-05-18] MEDS: PANTOPRAZOLE 40 MG TABLET PO SCH (08:20)
[2022-05-18] MEDS: busPIRone HCl 10 MG TAB PO SCH (08:21)
[2022-05-18] MEDS: HYDROcodone/APAP 5-325MG 1 EACH TAB PO PRN (08:21)
[2022-05-18] MEDS: dexAMETHasone 4 MG TAB PO SCH (08:21)
[2022-05-18] MEDS: LIDOCAINE 5% PATCH TOPICAL SCH (08:22)
[2022-05-18] MEDS: MAG HYDROX/AL HYDROX/SIMETH 30 ML, diphenhydrAMINE ELIXIR 75 MG, LIDOCAINE VISCOUS 2% 3... PO SCH ×3 (08:22)
[2022-05-18 08:46] LABS: HCT 27.4 % (37.2-46.3); HGB 9.3 g/dL (12.0-15.0); MCH 31.4 pg (27.0-32.0); MCHC 33.9 g/dL (32.0-37.0); MCV 92.6 fL (80.0-97.0); Mean Platelet Volume 10.8 fL (9.5-12.2); NRBC Per 100 WBC 0.4 /100 WBCS (0.0-0.0); Platelet Count 177 X 10*3/uL (140-440); RBC 2.96 X 10*6/uL (4.10-5.20); WBC 9.17 X 10*3/uL (4.50-10.00)
[2022-05-18 08:53] LABS: ALT 16 U/L (8-44); AST 17 U/L (13-35); African American GFR (CKD) 137.3 (60.0-200.0); Albumin 2.5 g/dL (3.8-4.9); Albumin/Globulin Ratio 1.39 (1.60-3.17); Alkaline Phosphatase 125 U/L (41-126); Blood Urea Nitrogen 7.5 mg/dL (9.0-27.0); Calcium 8.1 mg/dL (8.7-10.3); Carbon Dioxide 24.1 mmol/L (20.0-27.5); Chloride 100 mmol/L (96-109); Globulin 1.8 g/dL (1.6-3.3); Glucose 134 mg/dL (70-110); Non-African American GFR(CKD) 118.5 (60.0-200.0); Potassium 3.6 mmol/L (3.5-5.5); Sodium 135 mmol/L (135-145); Total Bilirubin <0.15 mg/dL (0.30-1.20); Total Protein 4.3 g/dL (6.2-8.2)
== END 2022-05-18 11:47 | disposition home or self-care (01) | DRG 391 ==
LOC: EC 10:58 → 5NMEDONC 15:11 → OBSVTOIN 05-17 09:21
PROVIDERS: ADMIT Internal Medicine Geriatric Medicine; ATTEND Internal Medicine Geriatric Medicine
DX: R11.2 Nausea with vomiting, unspecified (principal); D61.810 Antineoplastic chemotherapy induced pancytopenia; K29.70 Gastritis, unspecified, without bleeding; E43 Unspecified severe protein-calorie malnutrition; C34.90 Malignant neoplasm of unspecified part of unspecified bronchus or lung; I87.1 Compression of vein; F33.9 Major depressive disorder, recurrent, unspecified; J70.0 Acute pulmonary manifestations due to radiation; N39.0 Urinary tract infection, site not specified; Z16.23 Resistance to quinolones and fluoroquinolones; Z68.1 Body mass index [BMI] 19.9 or less, adult; K20.80 Other esophagitis without bleeding; I20.9 Angina pectoris, unspecified; T45.1X5A Adverse effect of antineoplastic and immunosuppressive drugs, initial encounter; B96.20 Unspecified Escherichia coli [E. coli] as the cause of diseases classified elsewhere; D63.0 Anemia in neoplastic disease; E83.42 Hypomagnesemia; E86.0 Dehydration; F17.210 Nicotine dependence, cigarettes, uncomplicated; F32.A Depression, unspecified; F41.1 Generalized anxiety disorder; I83.90 Asymptomatic varicose veins of unspecified lower extremity; J43.9 Emphysema, unspecified; R00.0 Tachycardia, unspecified; R09.02 Hypoxemia; R13.10 Dysphagia, unspecified; Y84.2 Radiological procedure and radiotherapy as the cause of abnormal reaction of the patient, or of later complication, without mention of misadventure at the time of the procedure; Z79.899 Other long term (current) drug therapy; Z82.49 Family history of ischemic heart disease and other diseases of the circulatory system; Z82.5 Family history of asthma and other chronic lower respiratory diseases; Z85.118 Personal history of other malignant neoplasm of bronchus and lung; Z91.012 Allergy to eggs; Z71.6 Tobacco abuse counseling
CPT/HCPCS: 36415; 71046; 80053; 81001; 83605; 83735; 84484; 85025; 85027; 85610; 85730; 87040; 93005; 96361; 96365; 96367; 96375; 96376; 99285

== ENCOUNTER 2022-06-05 14:59 | Inpatient (IN) | payer MEDICARE ==
[2022-06-05] MEDS ORDERED: SODIUM CHLORIDE 0.9% 1,000 ML IV STA (15:21)
--- NOTE | 2022-06-05 16:30 | ED ---
Weakness HPI - General Chief complaint: Weakness Stated complaint: weakness Time Seen by Provider: 06/05/22 15:25 Source: patient Mode of arrival: EMS Limitations: no limitations - History of Present Illness Initial comments: 66-year-old female with past medical history of lung cancer presents to the emergency department with increasing weakness. Caretakers are at bedside and help provide the history. The patient was hospitalized on May 17 for nausea, chest pain and weakness. She was hydrated and given antiemetics and pain medications. She was discharged home on antibiotics for UTI. States that she finished all of the antibiotics and was feeling well for a while. Starting on Saturday the patient has had increased weakness with inability to ambulate. Reports to presyncope especially upon standing. Caretakers state that she has not been eating or drinking. They also cannot get her to take her medications including Keflex that she was placed on on Saturday for continued UTI. Patient reports her pain has been controlled with the hycet. She is expected to start radiation again tomorrow. Chemotherapy has been on hold. She follows with Dr. Alcala. She denies chest pain or shortness of breath. No headache or visual changes. No fevers. No other alleviating, precipitating or modifying factors - Related Data Home Medications Medication Instructions Recorded Confirmed DULoxetine HCL [Cymbalta] 30 mg PO DAILY 03/21/22 06/05/22 busPIRone HCl [Buspar] 10 mg PO BID 03/21/22 06/05/22 Fluconazole 100 mg PO DAILY 06/05/22 06/05/22 Previous Rx's Medication Instructions Recorded Pantoprazole [Protonix] 40 mg PO BID #60 tab 05/17/22 Acetaminophen Tab [Tylenol] 650 mg PO Q6HR PRN tab 06/08/22 Cholecalciferol [Vitamin D3 (125 125 mcg PO DAILY tab 06/08/22 Mcg = 5000 Iu)] HYDROcodone/APAP [[place] Elixir 15 ml PO Q8H PRN #135 ml 06/08/22 7.5-325Mg/15Ml] Metoprolol Tartrate [Lopressor] 12.5 mg PO BID #60 tab 06/08/22 Sennosides-Docusate Sodium 2 each PO HS tab 06/08/22 [Senokot-S] cefUROXime axetiL [Ceftin] 500 mg PO BID 7 Days #14 tab 06/08/22 dronabinoL [Marinol] 2.5 mg PO AC-BID 3 Days #6 cap 06/08/22 polyethylene glycoL 3350 [Miralax] 17 gm PO DAILY packet 06/08/22 Allergies Allergy/AdvReac Type Severity Reaction Status Date / Time egg AdvReac Unknown Verified 06/05/22 16:33 Review of Systems ROS Statement: Those systems with pertinent positive or pertinent negative responses have been documented in the HPI. ROS Other: All systems not noted in ROS Statement are negative. Past Medical History Past Medical History: Cancer Additional Past Medical History / Comment(s): lung mass History of Any Multi-Drug Resistant Organisms: None Reported Past Surgical History: Orthopedic Surgery Additional Past Surgical History / Comment(s): ovary removed Past Anesthesia/Blood Transfusion Reactions: No Reported Reaction Past Psychological History: Depression Smoking Status: Current every day smoker Past Alcohol Use History: Occasional Past Drug Use History: None Reported - Past Family History Sister(s) Family Medical History: Myocardial Infarction ([place]) Additional Family Medical History / Comment(s): Sister had a PA at the age of 67yrs. Mother Family Medical History: No Reported History Additional Family Medical History / Comment(s): Mother lived to be 94 yrs old. She was a smoker. Father Family Medical History: Chest Pain / Angina Additional Family Medical History / Comment(s): Father had breathing problems. He lived to be 89yrs old. General Exam Limitations: no limitations General appearance: alert, in no apparent distress, cachectic Head exam: Present: atraumatic, normocephalic, normal inspection Eye exam: Present: normal appearance, PERRL, EOMI. Absent: scleral icterus, conjunctival injection, periorbital swelling ENT exam: Present: mucous membranes dry Respiratory exam: Present: normal lung sounds bilaterally. Absent: respiratory distress, wheezes, rales, rhonchi, stridor Cardiovascular Exam: Present: normal rhythm, tachycardia, normal heart sounds. Absent: systolic murmur, diastolic murmur, rubs, gallop, clicks GI/Abdominal exam: Present: soft, normal bowel sounds. Absent: distended, tenderness, guarding, rebound, rigid Neurological exam: Present: alert, oriented X3, CN II-XII intact Psychiatric exam: Present: normal affect, normal mood Course Vital Signs 06/05/22 06/05/22 06/05/22 15:03 16:56 18:00 Temperature 97.6 F Pulse Rate 105 H 98 97 Respiratory 18 16 18 Rate Blood Pressure 109/91 125/85 125/88 O2 Sat by Pulse 97 99 96 Oximetry 06/05/22 21:13 Temperature 97.8 F Pulse Rate 97 Respiratory 18 Rate Blood Pressure 121/79 O2 Sat by Pulse 98 Oximetry EKG Findings - EKG Comments: EKG Findings:: EKG demonstrates sinus rhythm with rate of 96. W[place] interval 154. QRS 77. QTC 382. No acute ST segment elevations or depressions. Medical Decision Making - Medical Decision Making Upon arrival patient was placed in room 20. There are history and physical exam was performed. IV access established the patient was given a liter bolus of normal saline. Laboratory studies are conducted and reviewed. Magnesium 1.6. Sodium 131. Patient continues to have abnormal UA and therefore is given a dose of Rocephin. Recommended admission for IV fluids and electrolyte replacement. Spoke with Dr. Luque who agreed to admit the patient. - Lab Data Result diagrams: 06/07/22 06:25 06/07/22 06:25 Lab Results 06/05/22 06/05/22 06/05/22 Range/Units 16:12 16:12 16:12 WBC 9.4 (3.8-10.6) k/uL RBC 2.64 L (3.80-5.40) m/uL Hgb 8.4 L D (11.4-16.0) gm/dL Hct 25.3 L (34.0-46.0) % MCV 95.7 (80.0-100.0) fL MCH 31.9 (25.0-35.0) pg MCHC 33.3 (31.0-37.0) g/dL RDW 17.5 H (11.5-15.5) % Plt Count 143 L (150-450) k/uL MPV 9.8 Neutrophils % 93 % Lymphocytes % 1 % Monocytes % 3 % Eosinophils % 0 % Basophils % 1 % Neutrophils # 8.7 H (1.3-7.7) k/uL Lymphocytes # 0.1 L (1.0-4.8) k/uL Monocytes # 0.3 (0-1.0) k/uL Eosinophils # 0.0 (0-0.7) k/uL Basophils # 0.1 (0-0.2) k/uL Hypochromasia Slight Poikilocytosis Slight Anisocytosis Slight Macrocytosis Slight PT 10.0 (9.0-12.0) sec INR 0.9 (<1.2) APTT 22.5 (22.0-30.0) sec Sodium 131 L (137-145) mmol/L Potassium 5.0 (3.5-5.1) mmol/L Chloride 103 (98-107) mmol/L Carbon Dioxide 24 (22-30) mmol/L Anion Gap 4 mmol/L BUN 24 H (7-17) mg/dL Creatinine 0.46 L (0.52-1.04) mg/dL Est GFR (CKD-EPI)AfAm >90 (>60 ml/min/1.73 sqM) Est GFR (CKD-EPI)NonAf >90 (>60 ml/min/1.73 sqM) Glucose 125 H (74-99) mg/dL Plasma Lactic Acid Blanco (0.7-2.0) mmol/L Calcium 8.4 (8.4-10.2) mg/dL Magnesium 1.6 (1.6-2.3) mg/dL Total Bilirubin 0.2 (0.2-1.3) mg/dL AST 30 (14-36) U/L ALT 34 (4-34) U/L Alkaline Phosphatase 145 H (38-126) U/L Troponin I (0.000-0.034) ng/mL NT-Pro-B Natriuret Pep pg/mL Total Protein 4.8 L (6.3-8.2) g/dL Albumin 2.5 L (3.5-5.0) g/dL 06/05/22 06/05/22 06/05/22 Range/Units 16:12 16:12 16:12 WBC (3.8-10.6) k/uL RBC (3.80-5.40) m/uL Hgb (11.4-16.0) gm/dL Hct (34.0-46.0) % MCV (80.0-100.0) fL MCH (25.0-35.0) pg MCHC (31.0-37.0) g/dL RDW (11.5-15.5) % Plt Count (150-450) k/uL MPV Neutrophils % % Lymphocytes % % Monocytes % % Eosinophils % % Basophils % % Neutrophils # (1.3-7.7) k/uL Lymphocytes # (1.0-4.8) k/uL Monocytes # (0-1.0) k/uL Eosinophils # (0-0.7) k/uL Basophils # (0-0.2) k/uL Hypochromasia Poikilocytosis Anisocytosis Macrocytosis PT (9.0-12.0) sec INR (<1.2) APTT (22.0-30.0) sec Sodium (137-145) mmol/L Potassium (3.5-5.1) mmol/L Chloride (98-107) mmol/L Carbon Dioxide (22-30) mmol/L Anion Gap mmol/L BUN (7-17) mg/dL Creatinine (0.52-1.04) mg/dL Est GFR (CKD-EPI)AfAm (>60 ml/min/1.73 sqM) Est GFR (CKD-EPI)NonAf (>60 ml/min/1.73 sqM) Glucose (74-99) mg/dL Plasma Lactic Acid Blanco 1.7 (0.7-2.0) mmol/L Calcium (8.4-10.2) mg/dL Magnesium (1.6-2.3) mg/dL Total Bilirubin (0.2-1.3) mg/dL AST (14-36) U/L ALT (4-34) U/L Alkaline Phosphatase (38-126) U/L Troponin I <0.012 (0.000-0.034) ng/mL NT-Pro-B Natriuret Pep 290 pg/mL Total Protein (6.3-8.2) g/dL Albumin (3.5-5.0) g/dL Disposition Clinical Impression: Small cell lung cancer, UTI (urinary tract infection), Pancytopenia Disposition: ADMITTED IP TO THIS [facility] Condition: Stable Is patient prescribed a controlled substance at d/c from ED?: No Time of Disposition: 17:51 Decision to Admit Reason: Admit from EC Decision Date: 06/05/22 Decision Time: 17:51
[2022-06-05 16:31] LABS: Anisocytosis Slight; Basophils # (A) 0.1 k/uL (0-0.2); Basophils % (A) 1 %; Eosinophils % (A) 0 %; HCT 25.3 % (34.0-46.0); Hypochromasia Slight; Lymphocytes # (A) 0.1 k/uL (1.0-4.8); Lymphocytes % (A) 1 %; MCH 31.9 pg (25.0-35.0); MCHC 33.3 g/dL (31.0-37.0); MCV 95.7 fL (80.0-100.0); Macrocytosis Slight; Mean Platelet Volume 9.8; Monocytes # (A) 0.3 k/uL (0-1.0); Monocytes % (A) 3 %; Neutrophils # (A) 8.7 k/uL (1.3-7.7); Neutrophils % (A) 93 %; Platelet Count 143 k/uL (150-450); Poikilocytosis Slight; RBC 2.64 m/uL (3.80-5.40); RDW 17.5 % (11.5-15.5); WBC 9.4 k/uL (3.8-10.6)
[2022-06-05 16:39] LABS: HGB 8.4 gm/dL (11.4-16.0)
[2022-06-05 16:40] LABS: INR 0.9 (<1.2); Partial Thromboplastin Time 22.5 sec (22.0-30.0)
[2022-06-05 16:48] LABS: ALT 34 U/L (4-34); AST 30 U/L (14-36); African American GFR (CKD) >90 (>60 ml/min/1.73 sqM); Albumin 2.5 g/dL (3.5-5.0); Alkaline Phosphatase 145 U/L (38-126); Anion Gap 4 mmol/L; Blood Urea Nitrogen 24 mg/dL (7-17); Calcium 8.4 mg/dL (8.4-10.2); Carbon Dioxide 24 mmol/L (22-30); Chloride 103 mmol/L (98-107); Glucose 125 mg/dL (74-99); Magnesium 1.6 mg/dL (1.6-2.3); Non-African American GFR(CKD) >90 (>60 ml/min/1.73 sqM); Sodium 131 mmol/L (137-145); Total Bilirubin 0.2 mg/dL (0.2-1.3); Total Protein 4.8 g/dL (6.3-8.2)
--- NOTE | 2022-06-05 17:24 | XR ---
EXAMINATION TYPE: XR chest 2V DATE OF EXAM: 06/05/2022 COMPARISON: 05/15/2022 HISTORY: Weakness TECHNIQUE: FINDINGS: Heart is normal. There is some airspace patchy consolidation right upper lobe. There is inc reased right paratracheal density at the azygos lymph node. Left lung is fairly clear. No heart failu re. Bony thorax is intact. IMPRESSION: There is right upper lobe pneumonia and masslike density at the region of azygous lymph n ode. Pneumonia increased compared to old exam.
[2022-06-05] MEDS ORDERED: cefTRIAXone IN SWFI 1,000 MG/10 ML SYRINGE IVP STA (17:50)
[2022-06-05] MEDS ORDERED: IBUPROFEN 400 MG TAB PO PRN (18:01)
[2022-06-05] MEDS ORDERED: NALOXONE 0.4 MG/ML 1 ML VIAL IV PRN (18:01)
[2022-06-05] MEDS ORDERED: ACETAMINOPHEN TAB 325 MG TAB PO PRN (18:01)
[2022-06-05] MEDS ORDERED: HYDROcodone/APAP 5-325MG 1 EACH TAB PO PRN (18:03)
[2022-06-05] MEDS: MAGNESIUM SULFATE-D5W PMX 1 GM in DEXTROSE/WATER 1 100ML.BAG IVPB SCH ×2 (18:22→20:20)
[2022-06-05] MEDS: SODIUM CHLORIDE 0.9% 1,000 ML IV SCH (19:32)
[2022-06-05] MEDS: busPIRone HCl 10 MG TAB PO SCH (20:20)
[2022-06-05] MEDS: PANTOPRAZOLE 40 MG TABLET PO SCH (20:20)
[2022-06-05 20:52] LABS: Appearance,Urine Cloudy (Clear); Bacteria,Urine Few /hpf; Bilirubin,Urine Negative (Negative); Blood,Urine Moderate (Negative); Color,Urine Yellow; Glucose,Urine (UA) Negative (Negative); Ketones,Urine Negative (Negative); Leukocyte Esterase,Urine Small (Negative); Mucus,Urine Rare /hpf; Nitrite,Urine Negative (Negative); Protein,Urine 1+ (Negative); RBC,Urine 84 /hpf (0-5); Specific Gravity,Urine 1.016 (1.001-1.035); Squamous Epithelial Cell,Urine <1 /hpf (0-4); WBC,Urine 65 /hpf (0-5)
[2022-06-06] MEDS: HYDROcodone/APAP 15 ML SOLUTION PO PRN ×4 (00:11→21:19)
[2022-06-06] MEDS: SODIUM CHLORIDE 0.9% 1,000 ML IV SCH ×3 (02:28→18:16)
[2022-06-06] MEDS: DULoxetine HCL 30 MG CAPSULE.DR PO SCH (08:25)
[2022-06-06] MEDS: busPIRone HCl 10 MG TAB PO SCH ×2 (08:25→21:19)
[2022-06-06] MEDS: PANTOPRAZOLE 40 MG TABLET PO SCH ×2 (08:25→16:40)
--- NOTE | 2022-06-06 10:16 | P.HPIM ---
History of Present Illness H&P Date: 06/06/22 HISTORY OF PRESENT ILLNESS This is a 66-year-old female patient of Dr. Luque with past medical history of COPD, tobacco use and dependence, recurrent depression and generalized anxiety disorder. In January 2018, patient underwent low-dose CAT scan which revealed moderate emphysematous change without suspicious nodules. Patient was to have a repeat of this but due to Covid she failed to follow-up. Patient was recently diagnosed with small cell lung cancer has been following with oncology and started treatment. Chemotherapy is delayed until June 20. Patient has been receiving radiation Saturday and Saturday and Saturday but has not been feeling well and it is scheduled to resume today. Patient complains of feeling chilled and always cold. She had her last bowel movement 2 days ago for complaints of constipation. She also complains of pain which does not seem to be controlled with [place]. Patient presented to [facility] emergency center, found to be afebrile, heart rate 105, blood pressure 109/91, pulse ox 97% on room air. WBC 9.4, hemoglobin 8.4 and platelet count 143. Sodium 131 other electrolytes are normal. BUN 24 creatinine 0.46. Blood sugar 125. Alkaline phosphatase 145 otherwise liver function tests are normal. Troponin negative. ProBNP 290. Albumin 2.5. Magnesium 1.6 and calcium 8.4. Lactic acid 1.7. Urinalysis revealed moderate blood, small amount of leukoesterase, wbc's 65, RBCs 84. Urine culture is in progress. Patient received 1 L of IV fluid, magnesium 2 g and ceftriaxone, admitted to the oncology unit and consult in place with oncology and radiation oncology. REVIEW OF SYSTEMS Constitutional: No fever, no chills, no night sweats. Reports weight loss. Reports weakness, reports fatigue no lethargy. No daytime sleepiness. EENT: No headache. No blurred vision or double vision, no loss of vision. No loss of Hearing, no ringing in the ears, no dizziness. No nasal drainage or congestion. No epistaxis. No sore throat. Lungs: Reports shortness of breath, reports cough, no sputum production. No wheezing. Cardiovascular: Reports chest pain, no lower extremity edema. No palpitations. No paroxysmal nocturnal dyspnea. No orthopnea. No lightheadedness or dizziness. No syncopal episodes. Abdominal: Reports right abdominal abdominal pain. Reports nausea, no vomiting. Reports diarrhea. No constipation. No bloody or tarry stools. No loss of appetite. Genitourinary: No dysuria, increased frequency, urgency. No urinary retention. Musculoskeletal: No myalgias. No muscle weakness, no gait dysfunction, no frequent falls. No back pain. No neck pain. Integumentary: Radiation burn to the abdomen. No wounds, no lesions. No rash or pruritus. No unusual bruising. No change in hair or nails. Neurologic: No aphasia. No facial droop. No change in mentation. No head injury. No headache. No paralysis. No paresthesia. Psychiatric: No depression. No anxiety. No mood swings. Endocrine: No abnormal blood sugars. No weight change. No excessive sweating or thirst. No cold intolerance. SOCIAL HISTORY Patient is a smoker of half a pack a day for 50 years plus. She drinks alcohol couple times per week. She denies any marijuana or illicit drug use. She does not have oxygen, nebulizer at home. FAMILY HISTORY Mother at age 94 from old age. Father at age 89 with history of COPD and coronary artery disease. Patient has 6 siblings and one brother from acute alcohol poisoning. One sister was diagnosed with myocardial infarction at age 67 otherwise other siblings have no major medical problems. Patient has one son with no major medical problems. PHYSICAL EXAMINATION Gen: This is a 66-year-old cachectic-appearing female. She is resting in bed and appears to be in no acute respiratory distress. Patient's caregiver is at bedside. HEENT: Head is atraumatic, normocephalic. Pupils equal, round. Sclerae is anicteric. NECK: Supple. No JVD. No lymphadenopathy. No thyromegaly. LUNGS: Clear to auscultation. No wheezes or rhonchi. No intercostal retractions. No accessory muscle usage. HEART: Regular rate and rhythm. No murmur. Engorged veins throughout the chest and abdomen. ABDOMEN: Soft. Bowel sounds are present. No masses. No tenderness. EXTREMITIES: No pedal edema. No calf tenderness. NEUROLOGICAL: Patient is awake, alert and oriented x3. Cranial nerves 2 through 12 are grossly intact. ASSESSMENT AND PLAN - Generalized weakness, chills, weight loss most likely secondary to cancer and chemotherapy. Consult with oncology Significant weight loss with severe protein calorie malnutrition, BMI 14, poor appetite. Consult with dietitian, patient encouraged to improve oral intake especially protein. Bicytopenia with anemia and thrombocytopenia secondary to chemotherapy. Continue to monitor. - Chest pain secondary to lung cancer. - Urinary tract infection. Continue patient on ceftriaxone, await urine culture report. 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 She was diagnosed with small cell carcinoma was started on chemotherapy and radiation. - electronically imbalance with severe hypomagnesemia: Magnesium supplement replaced. - Anemia: Most likely suppression from her chemotherapy patient can be benefit from Neupogen and Epogen at this point. - Active tobacco use and dependence. Smoking cessation. Constipation. Patient started on MiraLAX 17 g daily and Senokot 2 daily at bedtime. - GI prophylaxis. Protonix. - DVT prophylaxis. no heparin will be used this point specially with her thrombocytopenia will continue knee-high NAE hose and Venodyne boots. - CODE STATUS: Full code. Patient will be admitted to the hospital for a minimum of 2 night stay. DISCHARGE PLAN Most likely return home when more stable. Impression and plan of care have been directed as dictated by the signing physician. Luiza Lewis nurse practitioner acting as scribe for signing physician. Past Medical History Past Medical History: Cancer Additional Past Medical History / Comment(s): lung mass History of Any Multi-Drug Resistant Organisms: None Reported Past Surgical History: Orthopedic Surgery Additional Past Surgical History / Comment(s): ovary removed Past Anesthesia/Blood Transfusion Reactions: No Reported Reaction Past Psychological History: Depression Smoking Status: Current every day smoker Past Alcohol Use History: Occasional Past Drug Use History: None Reported - Past Family History Sister(s) Family Medical History: Myocardial Infarction ([place]) Additional Family Medical History / Comment(s): Sister had a [place] at the age of 67yrs. Mother Family Medical History: No Reported History Additional Family Medical History / Comment(s): Mother lived to be 94 yrs old. She was a smoker. Father Family Medical History: Chest Pain / Angina Additional Family Medical History / Comment(s): Father had breathing problems. He lived to be 89yrs old. Medications and Allergies Home Medications Medication Instructions Recorded Confirmed Type HYDROcodone/APAP 5-325MG [[place] 0.5 tab PO Q6H PRN 03/20/22 06/05/22 History 5-325] DULoxetine HCL [Cymbalta] 30 mg PO DAILY 03/21/22 06/05/22 History busPIRone HCl [Buspar] 10 mg PO BID 03/21/22 06/05/22 History Pantoprazole [Protonix] 40 mg PO BID #60 tab 05/17/22 06/05/22 Rx dronabinoL [Marinol] 2.5 mg PO AC-BID 3 Days #60 cap 05/17/22 06/05/22 Rx Fluconazole 100 mg PO DAILY 06/05/22 06/05/22 History HYDROcodone/APAP [[place] Elixir 15 ml PO Q8H PRN 06/05/22 06/05/22 History 7.5-325Mg/15Ml] dexAMETHasone See Taper PO DIRECTED 06/05/22 06/05/22 History Allergies Allergy/AdvReac Type Severity Reaction Status Date / Time egg AdvReac Unknown Verified 06/05/22 16:33 Physical Exam Vitals: Vital Signs Temp Pulse Pulse Resp BP BP Pulse Ox 06/06/22 06:02 97.8 F 95 16 142/99 95 06/05/22 22:51 97.7 F 93 16 131/84 98 06/05/22 21:13 97.8 F 97 18 121/79 98 06/05/22 18:00 97 18 125/88 96 06/05/22 16:56 98 16 125/85 99 06/05/22 15:03 97.6 F 105 H 18 109/91 97 Intake and Output 06/05/22 06/06/22 06/06/22 22:59 06:59 14:59 Intake Total 237 Balance 237 Intake: Oral 237 Other: # Voids 2 Weight 37.5 kg Results CBC & Chem 7: 06/05/22 16:12 06/05/22 16:12 Labs: Abnormal Lab Results - Last 24 Hours (Table) 06/05/22 06/05/22 06/05/22 Range/Units 16:12 16:12 20:35 RBC 2.64 L (3.80-5.40) m/uL Hgb 8.4 L D (11.4-16.0) gm/dL Hct 25.3 L (34.0-46.0) % RDW 17.5 H (11.5-15.5) % Plt Count 143 L (150-450) k/uL Neutrophils # 8.7 H (1.3-7.7) k/uL Lymphocytes # 0.1 L (1.0-4.8) k/uL Sodium 131 L (137-145) mmol/L BUN 24 H (7-17) mg/dL Creatinine 0.46 L (0.52-1.04) mg/dL Glucose 125 H (74-99) mg/dL Alkaline Phosphatase 145 H (38-126) U/L Total Protein 4.8 L (6.3-8.2) g/dL Albumin 2.5 L (3.5-5.0) g/dL Urine Appearance Cloudy H (Clear) Urine Protein 1+ H (Negative) Urine Blood Moderate H (Negative) Ur Leukocyte Esterase Small H (Negative) Urine RBC 84 H (0-5) /hpf Urine WBC 65 H (0-5) /hpf Urine Bacteria Few H (None) /hpf Urine Mucus Rare H (None) /hpf Microbiology - Last 24 Hours (Table) 06/05/22 20:35 Urine Culture - Preliminary Urine,Clean Catch Thrombosis Risk Factor Assmnt - Choose All That Apply Any of the Below Risk Factors Present?: Yes Each Factor Represents 1 point: Abnormal pulmonary function (COPD) Other Risk Factors: Yes Each Risk Factor Represents 2 Points: Age 61-74 years Other congenital or acquired thrombophilia - If yes, enter type in comment: No Thrombosis Risk Factor Assessment Total Risk Factor Score: 3 Thrombosis Risk Factor Assessment Level: Moderate Risk
[2022-06-06] MEDS: FLUCONAZOLE 100 MG TAB PO SCH (10:37)
[2022-06-06 12:07] LABS: African American GFR (CKD) 137.3 (60.0-200.0); Anion Gap 12.5 mmol/L (10.00-18.00); BUN/Creat Ratio 45.67 Ratio (12.00-20.00); Blood Urea Nitrogen 13.7 mg/dL (9.0-27.0); Calcium 8.5 mg/dL (8.7-10.3); Carbon Dioxide 19.5 mmol/L (20.0-27.5); Non-African American GFR(CKD) 118.5 (60.0-200.0); Potassium 4.8 mmol/L (3.5-5.5)
[2022-06-06 12:10] LABS: HGB 8.6 g/dL (12.0-15.0); MCH 30.2 pg (27.0-32.0); MCHC 29.7 g/dL (32.0-37.0); MCV 101.8 fL (80.0-97.0); Mean Platelet Volume 11.1 fL (9.5-12.2); Platelet Count 145 X 10*3/uL (140-440); RBC 2.85 X 10*6/uL (4.10-5.20); RDW 18.3 % (11.5-14.5); WBC 11.51 X 10*3/uL (4.50-10.00)
[2022-06-06 12:11] LABS: Basophils # (M) 0 X 10*3/uL (0.00-0.10); Eosinophils # (M) 0 X 10*3/uL (0.04-0.35); Lymphocytes # (M) 1.04 X 10*3/uL (0.90-5.00); Metamyelocytes % 1 % (0-0); Monocytes # (M) 0.35 X 10*3/uL (0.20-1.00); Myelocytes % 3 % (0-0); Neutrophils # (M) 9.67 X 10*3/uL (2.00-8.90); Neutrophils % (M) 84 %
[2022-06-06] MEDS: polyethylene glycoL 3350 17 GM POWD.PACK PO SCH (12:12)
--- NOTE | 2022-06-06 14:49 | P.CONS ---
History of Present Illness - Reason for Consult Consult date: 06/06/22 [facility] Requesting physician: Christina Dominguez - History of Present Illness Ms Patel is a pleasant white female, initially seen in consult at [facility] on 03/21/22. The patient had developed progressive shortness of breath, chest pressure and dry cough that started about 2-3 months prior and had been progressive since. She was seen in [place] in ER and was found to have abnormal imaging. She returned to [place] where she lives in came into the ER. Chest x-ray on showed right hilar mass and evidence of COPD. CT chest with contrast on 03/21/22 showed diffuse emphysema, .5 cm x 9.5 cm. 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 There was a 3.2 cm masslike infiltrate in the right posterior lung base. In the hospital the patient also had a CT of the brain and then MRI which was negative for evidence of metastatic disease. She underwent bronchoscopy on 03/22/22, revealing endobronchial tumor at the distal aspect of the kit and encroaching on the opening of the right upper lobe bronchus. 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 She was seen for her first office visit on 04/02/22 PET scan on 03/30/22 showed uptake in the right supraclavicular mass or adenopathy measuring 5 cm, uptake in the large mediastinal and right paratracheal mass, as well as in mediastinal adenopathy which appeared to be somewhat confluent, involving the anterior superior mediastinum and kit. There was a 1.3 cm central right lower lobe nodule with SUV of 4.35. There is no evidence of metastatic disease. the patient has long-standing history of smoking, since her teens, generally in about a pack a day range. The time of diagnosis is smoking about half pack a da y. Medical history was otherwise benign. The patient was referred to radiation oncology for concurrent chemotherapy radiation. She started PRODUCT TESTER FIBERGLASS-16 and cisplatin on 04/10/22. She is status post 3 cy cles. She started RT on 04/12/22 She denied any f/c/n/v. Her oral intake has decline progressively due to dysphagia, drop in appetite and taste alteration. She has lost about8-9 lbs. Her respiratory status and cough are significantly improved. She is performing her ADLs, but does c/o fatigue. Her ROS is otherwise as per HPI and negative out of 10 She was seen by Dr. Alcala on 06/01/22: The pt is having some cumulative toxicity as noted. Her CBC shows a Hgb of 8.9, WBC 1.4, plt 136, ANC 1.2 -Check labs - Supportive care measures discussed - Case d/w Dr Crow. She has 3 RT rxs remaining. She will be given a break for 3-4 days, and then reassessed - Delay C 4 by 1 wk Status Post Cycle 3 of chemotherapy Cisplatin and PRODUCT TESTER FIBERGLASS-16 on 05/24/22 She has been admitted with RUL Pneumonia Review of Systems All systems: negative Constitutional: Reports as per HPI Past Medical History Past Medical History: Cancer Additional Past Medical History / Comment(s): lung mass History of Any Multi-Drug Resistant Organisms: None Reported Past Surgical History: Orthopedic Surgery Additional Past Surgical History / Comment(s): ovary removed Past Anesthesia/Blood Transfusion Reactions: No Reported Reaction Past Psychological History: Depression Smoking Status: Current every day smoker Past Alcohol Use History: Occasional Past Drug Use History: None Reported - Past Family History Sister(s) Family Medical History: Myocardial Infarction (TN) Additional Family Medical History / Comment(s): Sister had a TN at the age of 67yrs. Mother Family Medical History: No Reported History Additional Family Medical History / Comment(s): Mother lived to be 94 yrs old. She was a smoker. Father Family Medical History: Chest Pain / Angina Additional Family Medical History / Comment(s): Father had breathing problems. He lived to be 89yrs old. Medications and Allergies Home Medications Medication Instructions Recorded Confirmed Type HYDROcodone/APAP 5-325MG [[place] 0.5 tab PO Q6H PRN 03/20/22 06/05/22 History 5-325] DULoxetine HCL [Cymbalta] 30 mg PO DAILY 03/21/22 06/05/22 History busPIRone HCl [Buspar] 10 mg PO BID 03/21/22 06/05/22 History Pantoprazole [Protonix] 40 mg PO BID #60 tab 05/17/22 06/05/22 Rx dronabinoL [Marinol] 2.5 mg PO AC-BID 3 Days #60 cap 05/17/22 06/05/22 Rx Fluconazole 100 mg PO DAILY 06/05/22 06/05/22 History HYDROcodone/APAP [[place] Elixir 15 ml PO Q8H PRN 06/05/22 06/05/22 History 7.5-325Mg/15Ml] dexAMETHasone See Taper PO DIRECTED 06/05/22 06/05/22 History Allergies Allergy/AdvReac Type Severity Reaction Status Date / Time egg AdvReac Unknown Verified 06/05/22 16:33 Physical Exam Vitals: Vital Signs Temp Pulse Pulse Resp BP BP Pulse Ox 06/06/22 12:30 98.3 F 98 18 131/80 96 06/06/22 08:45 91 139/79 06/06/22 08:40 95 16 06/06/22 06:02 97.8 F 95 16 142/99 95 06/05/22 22:51 97.7 F 93 16 131/84 98 06/05/22 21:13 97.8 F 97 18 121/79 98 06/05/22 18:00 97 18 125/88 96 06/05/22 16:56 98 16 125/85 99 06/05/22 15:03 97.6 F 105 H 18 109/91 97 Intake and Output 06/05/22 06/06/22 06/06/22 22:59 06:59 14:59 Intake Total 237 Balance 237 Intake: Oral 237 Other: Voiding Method Toilet # Voids 2 1 Weight 37.5 kg - Constitutional General appearance: cooperative - EENT Eyes: EOMI ENT: NA/AT - Neck Neck: normal ROM - Respiratory Respiratory: bilateral: diminished, wheezing - Cardiovascular Rhythm: regularly irregular leg Peripheral Edema: bilateral: 2+ - Gastrointestinal General gastrointestinal: soft - Integumentary Integumentary: pale - Musculoskeletal Musculoskeletal: generalized weakness Results CBC & Chem 7: 06/06/22 06:48 06/06/22 07:24 Labs: Abnormal Lab Results - Last 24 Hours (Table) 06/05/22 06/05/22 06/05/22 Range/Units 16:12 16:12 20:35 WBC (4.50-10.00) X 10*3/uL RBC 2.64 L (3.80-5.40) m/uL Hgb 8.4 L D (11.4-16.0) gm/dL Hct 25.3 L (34.0-46.0) % MCV (80.0-97.0) fL MCHC (32.0-37.0) g/dL RDW 17.5 H (11.5-15.5) % Plt Count 143 L (150-450) k/uL Absolute Nucleated RBC (0.00-0.00) X 10*3/uL Metamyelocytes % (0-0) % Myelocytes % (0-0) % Neutrophils # 8.7 H (1.3-7.7) k/uL Neutrophils # (Manual) (2.00-8.90) X 10*3/uL Lymphocytes # 0.1 L (1.0-4.8) k/uL Eosinophils # (Manual) (0.04-0.35) X 10*3/uL NRBC/100 WBC Diff (0.0-0.0) /100 WBCS Sodium 131 L (137-145) mmol/L Carbon Dioxide (20.0-27.5) mmol/L BUN 24 H (7-17) mg/dL Creatinine 0.46 L (0.52-1.04) mg/dL BUN/Creatinine Ratio (12.00-20.00) Ratio Glucose 125 H (74-99) mg/dL Calcium (8.7-10.3) mg/dL Alkaline Phosphatase 145 H (38-126) U/L Total Protein 4.8 L (6.3-8.2) g/dL Albumin 2.5 L (3.5-5.0) g/dL Urine Appearance Cloudy H (Clear) Urine Protein 1+ H (Negative) Urine Blood Moderate H (Negative) Ur Leukocyte Esterase Small H (Negative) Urine RBC 84 H (0-5) /hpf Urine WBC 65 H (0-5) /hpf Urine Bacteria Few H (None) /hpf Urine Mucus Rare H (None) /hpf 06/06/22 06/06/22 Range/Units 06:48 07:24 WBC 11.51 H (4.50-10.00) X 10*3/uL RBC 2.85 L (3.80-5.40) m/uL Hgb 8.6 L (11.4-16.0) gm/dL Hct 29.0 L (34.0-46.0) % MCV 101.8 H (80.0-97.0) fL MCHC 29.7 L (32.0-37.0) g/dL RDW 18.3 H (11.5-15.5) % Plt Count (150-450) k/uL Absolute Nucleated RBC 0.11 H (0.00-0.00) X 10*3/uL Metamyelocytes % 1 H (0-0) % Myelocytes % 3 H (0-0) % Neutrophils # (1.3-7.7) k/uL Neutrophils # (Manual) 9.67 H (2.00-8.90) X 10*3/uL Lymphocytes # (1.0-4.8) k/uL Eosinophils # (Manual) 0 L (0.04-0.35) X 10*3/uL NRBC/100 WBC Diff 1.0 H (0.0-0.0) /100 WBCS Sodium (137-145) mmol/L Carbon Dioxide 19.5 L (20.0-27.5) mmol/L BUN (7-17) mg/dL Creatinine 0.3 L (0.52-1.04) mg/dL BUN/Creatinine Ratio 45.67 H (12.00-20.00) Ratio Glucose 69 L (74-99) mg/dL Calcium 8.5 L (8.7-10.3) mg/dL Alkaline Phosphatase (38-126) U/L Total Protein (6.3-8.2) g/dL Albumin (3.5-5.0) g/dL Urine Appearance (Clear) Urine Protein (Negative) Urine Blood (Negative) Ur Leukocyte Esterase (Negative) Urine RBC (0-5) /hpf Urine WBC (0-5) /hpf Urine Bacteria (None) /hpf Urine Mucus (None) /hpf Microbiology - Last 24 Hours (Table) 06/05/22 20:35 Urine Culture - Preliminary Urine,Clean Catch Chest x-ray: report reviewed Assessment and Plan (1) Pneumonia Current Visit: Yes Status: Acute Code(s): J18.9 - PNEUMONIA, UNSPECIFIED ORGANISM SNOMED Code(s): 314501074 (2) Small cell lung cancer Narrative/Plan: Status post cycle 3 last on 05/24/22 for limited stage small cell with concurrent chemo and radiation cisplatin and PRODUCT TESTER FIBERGLASS 16. Difficult time with side effect profile, appears per office chart not utlizing all recommended supportive care meds. Current Visit: Yes Status: Acute Code(s): C34.90 - MALIGNANT NEOPLASM OF UNSP PART OF UNSP BRONCHUS OR LUNG SNOMED Code(s): 738305160 (3) UTI (urinary tract infection) Narrative/Plan: Culture is negative Current Visit: Yes Status: Acute Code(s): N39.0 - URINARY TRACT INFECTION, SITE NOT SPECIFIED SNOMED Code(s): 28598841 (4) Macrocytic anemia Narrative/Plan: Contributing to current symptms? Work-up placed and replacement of any nutritional factors if need will be given. Current Visit: Yes Status: Acute Code(s): D53.9 - NUTRITIONAL ANEMIA, UNSPECIFIED SNOMED Code(s): 72237175 Plan: Dr. Benson: I have completed the full history and physical and developed the above impression and plan, agree with dictation, dictated as a ascribe
[2022-06-06] MEDS: ONDANSETRON 4 MG/2 ML VIAL IVP PRN (21:19)
[2022-06-06] MEDS: SENNOSIDES-DOCUSATE SODIUM 1 EACH TAB PO SCH (21:19)
[2022-06-07] MEDS: SODIUM CHLORIDE 0.9% 1,000 ML IV SCH ×3 (05:45→16:39)
[2022-06-07] MEDS: HYDROcodone/APAP 15 ML SOLUTION PO PRN ×3 (05:56→22:04)
[2022-06-07] MEDS: busPIRone HCl 10 MG TAB PO SCH ×2 (07:44→22:05)
[2022-06-07] MEDS: DULoxetine HCL 30 MG CAPSULE.DR PO SCH (07:44)
[2022-06-07] MEDS: FLUCONAZOLE 100 MG TAB PO SCH (07:44)
[2022-06-07] MEDS: polyethylene glycoL 3350 17 GM POWD.PACK PO SCH (07:44)
[2022-06-07] MEDS: PANTOPRAZOLE 40 MG TABLET PO SCH ×2 (07:45→16:39)
[2022-06-07 09:28] LABS: % Iron Saturation 6.03 (12.00-45.00); ALT 36 U/L (8-44); AST 23 U/L (13-35); African American GFR (CKD) 137.3 (60.0-200.0); Albumin 2.5 g/dL (3.8-4.9); Albumin/Globulin Ratio 1.32 (1.60-3.17); Alkaline Phosphatase 169 U/L (41-126); Blood Urea Nitrogen 7.2 mg/dL (9.0-27.0); Carbon Dioxide 19.6 mmol/L (20.0-27.5); Chloride 102 mmol/L (96-109); Globulin 1.9 g/dL (1.6-3.3); Glucose 100 mg/dL (70-110); Iron 11 ug/dL (50-170); LDH 257 U/L (120-246); Non-African American GFR(CKD) 118.5 (60.0-200.0); Sodium 132 mmol/L (135-145); Total Iron Binding Capacity 189 ug/dL (228-460); Total Protein 4.4 g/dL (6.2-8.2)
[2022-06-07 09:47] LABS: Appearance,Urine Clear (Clear); Bilirubin,Urine Negative (Negative); Blood,Urine Trace (Negative); Color,Urine Light Yellow; Glucose,Urine (UA) Negative (Negative); Ketones,Urine Negative (Negative); Leukocyte Esterase,Urine Negative (Negative); Mucus,Urine Rare /hpf; Nitrite,Urine Negative (Negative); PH, Urine 6.5 (5.0-8.0); Protein,Urine Negative (Negative); RBC,Urine 7 /hpf (0-5); Specific Gravity,Urine 1.008 (1.001-1.035); Urobilinogen,Urine <2.0 mg/dL (<2.0); WBC,Urine 6 /hpf (0-5)
[2022-06-07 10:08] LABS: Basophils # (M) 0 X 10*3/uL (0.00-0.10); Eosinophils # (M) 0.18 X 10*3/uL (0.04-0.35); HCT 26.3 % (37.2-46.3); HGB 8.4 g/dL (12.0-15.0); Lymphocytes # (M) 0.53 X 10*3/uL (0.90-5.00); MCH 30.4 pg (27.0-32.0); MCHC 31.9 g/dL (32.0-37.0); MCV 95.3 fL (80.0-97.0); Mean Platelet Volume 10.9 fL (9.5-12.2); Metamyelocytes % 3 % (0-0); Myelocytes % 3 % (0-0); NRBC Per 100 WBC 0.5 /100 WBCS (0.0-0.0); Neutrophils # (M) 15.08 X 10*3/uL (2.00-8.90); Neutrophils % (M) 86 %; Platelet Count 147 X 10*3/uL (140-440); RBC 2.76 X 10*6/uL (4.10-5.20); WBC 17.53 X 10*3/uL (4.50-10.00)
--- NOTE | 2022-06-07 10:17 | P.PN ---
Subjective Progress Note Date: 06/07/22 HISTORY OF PRESENT ILLNESS This is a 66-year-old female patient of Dr. Luque with past medical history of COPD, tobacco use and dependence, recurrent depression and generalized anxiety disorder. In January 2018, patient underwent low-dose CAT scan which revealed moderate emphysematous change without suspicious nodules. Patient was to have a repeat of this but due to Covid she failed to follow-up. Patient was recently diagnosed with small cell lung cancer has been following with oncology and started treatment. Chemotherapy is delayed until June 20. Patient has been receiving radiation Saturday and Saturday and Saturday but has not been feeling well and it is scheduled to resume today. Patient complains of feeling chilled and always cold. She had her last bowel movement 2 days ago for complaints of constipation. She also complains of pain which does not seem to be controlled with [place]. Patient presented to [facility] emergency center, found to be afebrile, heart rate 105, blood pressure 109/91, pulse ox 97% on room air. WBC 9.4, hemoglobin 8.4 and platelet count 143. Sodium 131 other electrolytes are normal. BUN 24 creatinine 0.46. Blood sugar 125. Alkaline phosphatase 145 otherwise liver function tests are normal. Troponin negative. ProBNP 290. Albumin 2.5. Magnesium 1.6 and calcium 8.4. Lactic acid 1.7. Urinalysis revealed moderate blood, small amount of leukoesterase, wbc's 65, RBCs 84. Urine culture is in progress. Patient received 1 L of IV fluid, magnesium 2 g and ceftriaxone, admitted to the oncology unit and consult in place with oncology and radiation oncology. 06/07: Patient has been seen by oncology. Radiation oncology consult is pending. Patient's been afebrile, heart rate this morning 123, blood pressure 132/84, pulse ox 90% on room air. Urine culture is gram-negative bacilli. Patient is eating 25-50% of her meals. She has been seen by dietitian recommending ensure enlive 3 times daily but it appears that patient has not drinking the supplements. Patient encouraged to eat, increase activity, PT and OT consults have been added. Anticipate discharge home tomorrow. REVIEW OF SYSTEMS Constitutional: No fever, no chills, no night sweats. Reports weight loss. Reports weakness, reports fatigue no lethargy. No daytime sleepiness. EENT: No headache. No blurred vision or double vision, no loss of vision. No loss of Hearing, no ringing in the ears, no dizziness. No nasal drainage or congestion. No epistaxis. No sore throat. Lungs: Reports shortness of breath, reports cough, no sputum production. No wheezing. Cardiovascular: Reports chest pain, no lower extremity edema. No palpitations. No paroxysmal nocturnal dyspnea. No orthopnea. No lightheadedness or dizziness. No syncopal episodes. Abdominal: Reports right abdominal abdominal pain. Reports nausea, no vomiting. Reports diarrhea. No constipation. No bloody or tarry stools. Reports loss of appetite. Genitourinary: No dysuria, increased frequency, urgency. No urinary retention. Musculoskeletal: No myalgias. No muscle weakness, no gait dysfunction, no frequent falls. No back pain. No neck pain. Integumentary: Radiation burn to the abdomen. No wounds, no lesions. No rash or pruritus. No unusual bruising. No change in hair or nails. Neurologic: No aphasia. No facial droop. No change in mentation. No head injury. No headache. No paralysis. No paresthesia. Psychiatric: No depression. No anxiety. No mood swings. Endocrine: No abnormal blood sugars. No weight change. No excessive sweating or thirst. No cold intolerance. PHYSICAL EXAMINATION Gen: This is a 66-year-old cachectic-appearing female. She is resting in bed and appears to be in no acute respiratory distress. Patient's caregiver is at bedside. HEENT: Head is atraumatic, normocephalic. Pupils equal, round. Sclerae is anicteric. NECK: Supple. No JVD. No lymphadenopathy. No thyromegaly. LUNGS: Clear to auscultation. No wheezes or rhonchi. No intercostal retractions. No accessory muscle usage. HEART: Regular rate and rhythm. No murmur. Engorged veins throughout the chest and abdomen. ABDOMEN: Soft. Bowel sounds are present. No masses. No tenderness. EXTREMITIES: No pedal edema. No calf tenderness. NEUROLOGICAL: Patient is awake, alert and oriented x3. Cranial nerves 2 through 12 are grossly intact. ASSESSMENT AND PLAN - Generalized weakness, chills, weight loss most likely secondary to cancer and chemotherapy. Consult with oncology appreciated. Consult with radiation oncology. Significant weight loss with severe protein calorie malnutrition, BMI 14, poor appetite. Consult with dietitian recommending ensure enlive 3 times daily. Bicytopenia with anemia and thrombocytopenia secondary to chemotherapy. Continue to monitor. - Chest pain secondary to lung cancer. - Urinary tract infection. Continue patient on ceftriaxone, await urine culture to be finalized. 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 She was diagnosed with small cell carc inoma was started on chemotherapy and radiation. - electronically imbalance with severe hypomagnesemia: Magnesium supplement replaced. - Anemia: Most likely suppression from her chemotherapy patient can be benefit from Neupogen and Epogen at this point. - Active tobacco use and dependence. Smoking cessation. Constipation. Patient started on MiraLAX 17 g daily and Senokot 2 daily at bedtime. - GI prophylaxis. Protonix. - DVT prophylaxis. no heparin will be used this point specially with her thrombocytopenia will continue knee-high NAE hose and Venodyne boots. - CODE STATUS: Full code. DISCHARGE PLAN Home tomorrow with family and caregivers. Impression and plan of care have been directed as dictated by the signing physician. Luiza Lewis nurse practitioner acting as scribe for signing physician. Objective - Vital Signs Vital signs: Vital Signs Temp 98.5 F 06/07/22 04:59 Pulse 123 H 06/07/22 04:59 Resp 16 06/07/22 04:59 BP 132/84 06/07/22 04:59 Pulse Ox 90 L 06/07/22 04:59 FiO2 Intake & Output 06/06/22 06/07/22 06/07/22 18:59 06:59 18:59 Intake Total 360 Balance 360 Weight 37.5 kg Intake: Oral 360 Other: Voiding Method Toilet Toilet # Voids 3 4 # Bowel Movements 1 - Labs CBC & Chem 7: 06/07/22 06:25 06/07/22 06:25 Labs: Abnormal Lab Results - Last 24 Hours (Table) 06/06/22 06/06/22 Range/Units 06:48 07:24 WBC 11.51 H (4.50-10.00) X 10*3/uL RBC 2.85 L (4.10-5.20) X 10*6/uL Hgb 8.6 L (12.0-15.0) g/dL Hct 29.0 L (37.2-46.3) % MCV 101.8 H (80.0-97.0) fL MCHC 29.7 L (32.0-37.0) g/dL RDW 18.3 H (11.5-14.5) % Absolute Nucleated RBC 0.11 H (0.00-0.00) X 10*3/uL Metamyelocytes % 1 H (0-0) % Myelocytes % 3 H (0-0) % Neutrophils # (Manual) 9.67 H (2.00-8.90) X 10*3/uL Eosinophils # (Manual) 0 L (0.04-0.35) X 10*3/uL NRBC/100 WBC Diff 1.0 H (0.0-0.0) /100 WBCS Carbon Dioxide 19.5 L (20.0-27.5) mmol/L Creatinine 0.3 L (0.6-1.5) mg/dL BUN/Creatinine Ratio 45.67 H (12.00-20.00) Ratio Glucose 69 L (70-110) mg/dL Calcium 8.5 L (8.7-10.3) mg/dL Microbiology - Last 24 Hours (Table) 06/05/22 20:35 Urine Culture - Preliminary Urine,Clean Catch Gram Neg Bacilli
--- NOTE | 2022-06-07 14:10 | P.PN ---
Subjective Progress Note Date: 06/07/22 Principal diagnosis: Limited Stage Small Cell Lung Cancer Limited stage lung cancer - Treatment intent curative, however other co morbidities, her cancer is treated with full intention of remission. From oncology standpoint there would not be a cancer related hospice diagnosis. Objective - Vital Signs Vital signs: Vital Signs Temp 98.1 F 06/07/22 11:20 Pulse 120 H 06/07/22 11:20 Resp 16 06/07/22 11:20 BP 119/71 06/07/22 11:20 Pulse Ox 92 L 06/07/22 11:20 FiO2 Intake & Output 06/06/22 06/07/22 06/07/22 18:59 06:59 18:59 Intake Total 360 Balance 360 Weight 37.5 kg 35.5 kg Intake: Oral 360 Other: Voiding Method Toilet Toilet Toilet # Voids 3 4 2 # Bowel Movements 1 - Exam - Constitutional General appearance: cooperative - EENT Eyes: EOMI ENT: NA/AT - Neck Neck: normal ROM - Respiratory Respiratory: bilateral: diminished, wheezing - Cardiovascular Rhythm: regularly irregular leg Peripheral Edema: bilateral: 2+ - Gastrointestinal General gastrointestinal: soft - Integumentary Integumentary: pale - Musculoskeletal Musculoskeletal: generalized weakness - Labs CBC & Chem 7: 06/07/22 06:25 06/07/22 06:25 Labs: Abnormal Lab Results - Last 24 Hours (Table) 06/07/22 06/07/22 06/07/22 Range/Units 06:25 06:25 09:33 WBC 17.53 H (4.50-10.00) X 10*3/uL RBC 2.76 L (4.10-5.20) X 10*6/uL Hgb 8.4 L (12.0-15.0) g/dL Hct 26.3 L (37.2-46.3) % MCHC 31.9 L (32.0-37.0) g/dL RDW 18.0 H (11.5-14.5) % Absolute Nucleated RBC 0.09 H (0.00-0.00) X 10*3/uL Metamyelocytes % 3 H (0-0) % Myelocytes % 3 H (0-0) % Neutrophils # (Manual) 15.08 H (2.00-8.90) X 10*3/uL Lymphocytes # (Manual) 0.53 L (0.90-5.00) X 10*3/uL NRBC/100 WBC Diff 0.5 H (0.0-0.0) /100 WBCS Sodium 132 L (135-145) mmol/L Carbon Dioxide 19.6 L (20.0-27.5) mmol/L BUN 7.2 L (9.0-27.0) mg/dL Creatinine 0.3 L (0.6-1.5) mg/dL BUN/Creatinine Ratio 24.00 H (12.00-20.00) Ratio Calcium 8.0 L (8.7-10.3) mg/dL Iron 11 L (50-170) ug/dL TIBC 189 L (228-460) ug/dL % Saturation 6.03 L (12.00-45.00) Transferrin 135.0 L (204.0-354.0) mg/dL Total Bilirubin 0.20 L (0.30-1.20) mg/dL Alkaline Phosphatase 169 H (41-126) U/L Lactate Dehydrogenase 257 H (120-246) U/L Total Protein 4.4 L (6.2-8.2) g/dL Albumin 2.5 L (3.8-4.9) g/dL Albumin/Globulin Ratio 1.32 L (1.60-3.17) g/dL Vitamin B12 1531.0 H (200.0-944.0) pg/mL Vitamin D 25-Hydroxy 12.1 L (30.0-100.0) ng/mL Urine Blood Trace H (Negative) Urine RBC 7 H (0-5) /hpf Urine WBC 6 H (0-5) /hpf Urine Mucus Rare H (None) /hpf Microbiology - Last 24 Hours (Table) 06/05/22 20:35 Urine Culture - Preliminary Urine,Clean Catch Gram Neg Bacilli Assessment and Plan (1) Pneumonia Current Visit: Yes Status: Acute Code(s): J18.9 - PNEUMONIA, UNSPECIFIED ORGANISM SNOMED Code(s): 827437876 (2) Small cell lung cancer Narrative/Plan: Status post cycle 3 last on 05/24/22 for limited stage small cell with concurrent chemo and radiation cisplatin and [employer] 16. Difficult time with side effect profile, appears per office chart not utlizing all recommended supportive care meds. Current Visit: Yes Status: Acute Code(s): C34.90 - MALIGNANT NEOPLASM OF UNSP PART OF UNSP BRONCHUS OR LUNG SNOMED Code(s): 327616057 (3) UTI (urinary tract infection) Narrative/Plan: Culture is negative Current Visit: Yes Status: Acute Code(s): N39.0 - URINARY TRACT INFECTION, SITE NOT SPECIFIED SNOMED Code(s): 24056199 (4) Macrocytic anemia Narrative/Plan: Contributing to current symptms? Work-up placed and replacement of any nutritional factors if need will be given. Ferritin is pending, await results prior to supplementing iron Folate is low/normal B12 adequate Vitmian D Supplemented Current Visit: Yes Status: Acute Code(s): D53.9 - NUTRITIONAL ANEMIA, UNSPECIFIED SNOMED Code(s): 94661540 Plan: Dr. Benson: I have completed the full history and physical and developed the above impression and plan, agree with dictation, dictated as a ascribe
[2022-06-07] MEDS: CHOLECALCIFEROL 125 MCG (5000 IU) TABLET PO SCH (15:05)
[2022-06-07 16:46] VITALS: BMI 13.4
[2022-06-07] MEDS: METOPROLOL TARTRATE 12.5 MG TAB PO SCH (22:05)
[2022-06-07] MEDS: SENNOSIDES-DOCUSATE SODIUM 1 EACH TAB PO SCH (22:05)
[2022-06-08] MEDS: SODIUM CHLORIDE 0.9% 1,000 ML IV SCH ×2 (02:47→11:01)
[2022-06-08] MEDS: PANTOPRAZOLE 40 MG TABLET PO SCH (07:49)
[2022-06-08] MEDS: HYDROcodone/APAP 15 ML SOLUTION PO PRN (08:03)
--- NOTE | 2022-06-08 08:06 | P.PN ---
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 She initiated chemoradiation concurrently in 03/2022 and completed 3 cycles of chemotherapy and planned radiation treatments. The patient was hospitalized with UTI, malnutrition and inability to swallow. She has been on a treatment break for radiation esophagitis. Her last RT treatment was 05/31/22. She is still complaining of difficulty swallowing - notes she is not getting much food down. She does not feel this has improved much despite a >1 week break for RT. Also has had some abdominal pain started yesterday. Objective - Vital Signs Vital signs: Vital Signs Temp 97.7 F 06/08/22 07:14 Pulse 95 06/08/22 07:14 Resp 16 06/08/22 07:14 BP 117/73 06/08/22 07:14 Pulse Ox 94 L 06/08/22 07:14 FiO2 Intake & Output 06/07/22 06/08/22 06/08/22 18:59 06:59 18:59 Intake Total 160 Output Total 1 Balance 159 Weight 35.5 kg Intake: Oral 160 Output: Stool 1 Other: Voiding Method Toilet Toilet # Voids 3 3 # Bowel Movements 1 - Constitutional General appearance: Present: no acute distress, thin - EENT Eyes: Present: EOMI, PERRLA ENT: Present: hearing grossly normal - Neck Neck: Absent: lymphadenopathy - Respiratory Respiratory: bilateral: CTA - Cardiovascular Rhythm: regular - Gastrointestinal General gastrointestinal: Absent: distended, tenderness - Integumentary Integumentary: Present: pale - Neurologic Neurologic: Present: CNII-XII intact - Psychiatric Psychiatric: Present: A&O x's 3, appropriate affect - Labs CBC & Chem 7: 06/07/22 06:25 06/07/22 06:25 Labs: Abnormal Lab Results - Last 24 Hours (Table) 06/07/22 06/07/22 06/07/22 Range/Units 06:25 06:25 09:33 WBC 17.53 H (4.50-10.00) X 10*3/uL RBC 2.76 L (4.10-5.20) X 10*6/uL Hgb 8.4 L (12.0-15.0) g/dL Hct 26.3 L (37.2-46.3) % MCHC 31.9 L (32.0-37.0) g/dL RDW 18.0 H (11.5-14.5) % Absolute Nucleated RBC 0.09 H (0.00-0.00) X 10*3/uL Metamyelocytes % 3 H (0-0) % Myelocytes % 3 H (0-0) % Neutrophils # (Manual) 15.08 H (2.00-8.90) X 10*3/uL Lymphocytes # (Manual) 0.53 L (0.90-5.00) X 10*3/uL NRBC/100 WBC Diff 0.5 H (0.0-0.0) /100 WBCS Sodium 132 L (135-145) mmol/L Carbon Dioxide 19.6 L (20.0-27.5) mmol/L BUN 7.2 L (9.0-27.0) mg/dL Creatinine 0.3 L (0.6-1.5) mg/dL BUN/Creatinine Ratio 24.00 H (12.00-20.00) Ratio Calcium 8.0 L (8.7-10.3) mg/dL Iron 11 L (50-170) ug/dL TIBC 189 L (228-460) ug/dL % Saturation 6.03 L (12.00-45.00) Transferrin 135.0 L (204.0-354.0) mg/dL Total Bilirubin 0.20 L (0.30-1.20) mg/dL Alkaline Phosphatase 169 H (41-126) U/L Lactate Dehydrogenase 257 H (120-246) U/L Total Protein 4.4 L (6.2-8.2) g/dL Albumin 2.5 L (3.8-4.9) g/dL Albumin/Globulin Ratio 1.32 L (1.60-3.17) g/dL Vitamin B12 1531.0 H (200.0-944.0) pg/mL Vitamin D 25-Hydroxy 12.1 L (30.0-100.0) ng/mL Urine Blood Trace H (Negative) Urine RBC 7 H (0-5) /hpf Urine WBC 6 H (0-5) /hpf Urine Mucus Rare H (None) /hpf Microbiology - Last 24 Hours (Table) 06/05/22 20:35 Urine Culture - Final Urine,Clean Catch Escherichia coli - Imaging and Cardiology Chest x-ray: report reviewed, image reviewed Assessment and Plan Assessment: The patient is a 66-year-old female with a history of recently diagnosed limited stage small cell lung cancer of the right lung presenting with bulky mediastinal adenopathy and SVC syndrome. She initiated chemoradiation concurrently in 03/2022 and completed 3 cycles of chemotherapy and planned radiation treatments. Plan: 1. Pneumonia/UTI: CXR consistent with pneumonia (not cancer related). Continue ABX + supportive care. 2. Esophagitis: Radiation related - treatment has been on hold for 1 week. Encourage PO intake. Would keep Diflucan going for now. Lortab elixir as needed; encourage before meals. Will discontinue XRT (no plan to complete final 3 treatments). 3. Small cell lung cancer: Limited stage disease - patient has had an exce llent response to therapy (significant shrinkage of mass). No evidence of cancer progression, but patient is quite debilitated due to recent therapy + concurrent infections. Time with Patient: Less than 30
[2022-06-08] MEDS: DULoxetine HCL 30 MG CAPSULE.DR PO SCH (08:44)
[2022-06-08] MEDS: FLUCONAZOLE 100 MG TAB PO SCH (08:45)
[2022-06-08] MEDS: busPIRone HCl 10 MG TAB PO SCH (08:46)
[2022-06-08] MEDS: CHOLECALCIFEROL 125 MCG (5000 IU) TABLET PO SCH (08:46)
[2022-06-08] MEDS: METOPROLOL TARTRATE 12.5 MG TAB PO SCH (08:47)
[2022-06-08] MEDS: polyethylene glycoL 3350 17 GM POWD.PACK PO SCH (08:49)
[2022-06-08] MEDS ORDERED: LIDOCAINE 1% INJ 10MG/ML (5 ML VIAL-PF) SQ ONE (10:00)
[2022-06-08] MEDS: ONDANSETRON 4 MG/2 ML VIAL IVP PRN (12:10)
--- NOTE | 2022-06-08 12:37 | P.DS ---
Providers Date of admission: 06/05/22 18:01 Expected date of discharge: 06/08/22 Attending physician: Stephan Luque Consults: 06/05/22 18:01 Consult Physician Urgent Consulting Provider: Isma Alcala Consult Reason/Comments: lung cancer Do you want consulting provider notified?: Yes 06/08/22 07:20 Consult Physician Routine Consulting Provider: Sravan Crow Consult Reason/Comments: Under radiation tx Do you want consulting provider notified?: Yes Primary care physician: Stephan Rebel [facility] Hospital Course: HISTORY OF PRESENT ILLNESS This is a 66-year-old female patient of Dr. Luque with past medical history of COPD, tobacco use and dependence, recurrent depression and generalized anxiety disorder. In January 2018, patient underwent low-dose CAT scan which revealed moderate emphysematous change without suspicious nodules. Patient was to have a repeat of this but due to Covid she failed to follow-up. Patient was recently diagnosed with small cell lung cancer has been following with oncology and started treatment. Chemotherapy is delayed until June 20. Patient has been receiving radiation Saturday and Saturday and Saturday but has not been feeling well and it is scheduled to resume today. Patient complains of feeling chilled and always cold. She had her last bowel movement 2 days ago for complaints of constipation. She also complains of pain which does not seem to be controlled with Loving. Patient presented to [facility] emergency center, found to be afebrile, heart rate 105, blood pressure 109/91, pulse ox 97% on room air. WBC 9.4, hemoglobin 8.4 and platelet count 143. Sodium 131 other electrolytes are normal. BUN 24 creatinine 0.46. Blood sugar 125. Alkaline phosphatase 145 otherwise liver function tests are normal. Troponin negative. ProBNP 290. Albumin 2.5. Magnesium 1.6 and calcium 8.4. Lactic acid 1.7. Urinalysis revealed moderate blood, small amount of leukoesterase, wbc's 65, RBCs 84. Uri ne culture is in progress. Patient received 1 L of IV fluid, magnesium 2 g and ceftriaxone, admitted to the oncology unit and consult in place with oncology and radiation oncology. 06/07: Patient has been seen by oncology. Radiation oncology consult is pending. Patient's been afebrile, heart rate this morning 123, blood pressure 132/84, pulse ox 90% on room air. Urine culture is gram-negative bacilli. Patient is eating 25-50% of her meals. She has been seen by dietitian recommending ensure enlive 3 times daily but it appears that patient has not drinking the supplements. Patient encouraged to eat, increase activity, PT and OT consults have been added. Anticipate discharge home tomorrow. 06/08: Apparently patient was scheduled for PICC line as an outpatient which was then decided to be done while she was in the hospital but there were no orders in the chart, no communication in the oncology notes and patient and her sister did not know anything about it so it was canceled for yesterday. Apparently this was something that was planned by oncology for nutritional purposes and hydration. Patient will be scheduled today most likely for PICC line placement. Patient's heart rate was elevated in the afternoon and low dose Lopressor was added. She has been afebrile, heart rate this morning in the 90s, blood pressure 121/83 and pulse ox 91% on room air. Repeat urinalysis revealed trace blood, RBCs 7 and WBC 6. Urine culture is positive from the initial urinalysis of 719 positive for E. coli resistant to fluoroquinolones, Bactrim, tetracycline and ampicillin. Patient has been continued on Rocephin. On discussion with patient and her sister at bedside regarding options. This discuss hospice but she would like to have more aggressive treatment. If patient goes home she does need 24-hour care to ensure that she takes her medication, increase activity, eats including protein supplements. Patient has significant weakness as well as would benefit from rehabilitative services. The patient understands that if she goes to rehab, any oncology treatment will be placed on hold as she builds up her strength to have treatment at a later date. Anticipate need for rehab for 2-3 weeks. Patient will be discharged today once all arrangements are completed. DISCHARGE DIAGNOSES - Generalized weakness, chills, weight loss most likely secondary to cancer and chemotherapy. Significant weight loss with severe protein calorie malnutrition, BMI 14, poor appetite. Bicytopenia with anemia and thrombocytopenia secondary to chemotherapy. - Chest pain secondary to lung cancer. 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 Smoking cessation. Constipation. DISCHARGE PLAN Subacute rehab Greater than 35 minutes was utilized and coordinating patient's discharge. Impression and plan of care have been directed as dictated by the signing p ozzy. Luiza Lewis nurse practitioner acting as scribe for signing physician. Patient Condition at Discharge: Stable Plan - Discharge Summary New Discharge Prescriptions: New Metoprolol Tartrate [Lopressor] 12.5 mg PO BID #60 tab Sennosides-Docusate Sodium [Senokot-S] 2 each PO HS tab polyethylene glycoL 3350 [Miralax] 17 gm PO DAILY packet Acetaminophen Tab [Tylenol] 650 mg PO Q6HR PRN tab PRN Reason: Mild Pain Or Fever > 100.5 Cholecalciferol [Vitamin D3 (125 Mcg = 5000 Iu)] 125 mcg PO DAILY tab Continue dronabinoL [Marinol] 2.5 mg PO AC-BID 3 Days #60 cap busPIRone HCl [Buspar] 10 mg PO BID DULoxetine HCL [Cymbalta] 30 mg PO DAILY Pantoprazole [Protonix] 40 mg PO BID #60 tab Fluconazole 100 mg PO DAILY HYDROcodone/APAP [Loving Elixir 7.5-325Mg/15Ml] 15 ml PO Q8H PRN #135 ml PRN Reason: Pain Discontinued dexAMETHasone See Taper PO DIRECTED HYDROcodone/APAP 5-325MG [Loving 5-325] 0.5 tab PO Q6H PRN PRN Reason: Pain Discharge Medication List DULoxetine HCL [Cymbalta] 30 mg PO DAILY 03/21/22 [History] busPIRone HCl [Buspar] 10 mg PO BID 03/21/22 [History] Pantoprazole [Protonix] 40 mg PO BID #60 tab 05/17/22 [Rx] dronabinoL [Marinol] 2.5 mg PO AC-BID 3 Days #60 cap 05/17/22 [Rx] Fluconazole 100 mg PO DAILY 06/05/22 [History] Acetaminophen Tab [Tylenol] 650 mg PO Q6HR PRN tab 06/08/22 [Rx] Cholecalciferol [Vitamin D3 (125 Mcg = 5000 Iu)] 125 mcg PO DAILY tab 06/08/22 [Rx] HYDROcodone/APAP [Loving Elixir 7.5-325Mg/15Ml] 15 ml PO Q8H PRN #135 ml 06/08/22 [Rx] Metoprolol Tartrate [Lopressor] 12.5 mg PO BID #60 tab 06/08/22 [Rx] Sennosides-Docusate Sodium [Senokot-S] 2 each PO HS tab 06/08/22 [Rx] polyethylene glycoL 3350 [Miralax] 17 gm PO DAILY packet 06/08/22 [Rx] Follow up Appointment(s)/Referral(s): Sravan Crow MD [STAFF PHYSICIAN] - 1 Week (Follow-up Appt is Saturday, July 02, 2022 at 11:30am with Dr Crow) Stephan Luque MD [Primary Care Provider] - 1 Week Discharge Disposition: TRANSFER TO SNF/ECF
--- NOTE | 2022-06-08 12:44 | IR ---
EXAMINATION TYPE: IR cvc insert >=5 years DATE OF EXAM: 06/08/2022 COMPARISON: NONE CLINICAL HISTORY: Cancer Needs long-term intravenous access for chemotherapy, total parenteral nutrit ion. PROCEDURE: Hand hygiene obtained with soap and water and alcohol-based hand rub. After informed consent, the skin overlying the left basilic vein was localized with ultrasound and no brandon to be compressible and patent. An ultrasound image was obtained and submitted on the patient's c price. The overlying skin was prepped and draped and Lidocaine was used for local anesthesia. A skin clarisa was made with a scalpel. Access was gained to the vein under ultrasound guidance with a 21 gau ge needle and a 0.018 inch wire was advanced. Access site was dilated with Peel-Away sheath and cath eter tailored to the appropriate length and advanced such that the distal tip is at the cavoatrial ju nction. Spot image was obtained verifying placement. Catheter was fixed to the skin and a sterile d ressing was placed following hemostasis. Catheter was aspirated and flushed with saline. Patient wa s discharged in stable condition without complication.Maximal barrier technique is utilized. Ultraso und image is documented on the chart. Ultrasound used with sterile technique. Fluoro time and fluoroscopic images submitted to document procedure: 1.4 minutes fluoroscopy time, 13 7 intraoperative C-arm images document the procedure IMPRESSION: STATUS POST ULTRASOUND AND FLUOROSCOPIC GUIDED PICC LINE PLACEMENT, READY FOR USE. THIS PROCEDURE WAS PERFORMED BY THE UNDERSIGNED.
[2022-06-08 12:55] VITALS: BP 90/59; PULSE 92; RESP 17; TEMP 98.1
--- NOTE | 2022-06-08 13:53 | P.CONS ---
History of Present Illness - Chief Complaint Medical debility - History of Present Illness I had the opportunity to see patient for inpatient rehab consultation with regard to medical debility. Patient admitted to [facility] to Dr. Luque June 05 with generalized weakness. On noted to have UTI, small cell lung cancer and pancytopenia. Seen by Dr. Alcala oncology. Chest x-ray demonstrates right upper lobe infiltrate versus mass-like substance. PT reports minimal assistance for bed mobility and transfer and supervision for gait 100 feet roller walker, total. OT pending. Discharge summary indicates plan to subacute. Previous functional history as elicited from patient: 66-year-old right-handed white female single lives in one floor home alone. Retired. Describes independent with own cooking, laundry, driving, standing shower gait without device. PCP Dr. Luque. Patient admits to occasional tobacco or alcohol but plans on quitting tobacco soon. Review of Systems Review of systems: ENT: Denies sneezes or discharge. Eyes: Denies discharge or photophobia. Cardiac: Denies chest pain or palpitation. Pulmonary: At least mild shortness of breath. Breast: Denies discharge or lumps. Gastrointestinal: Denies nausea, emesis, constipation, diarrhea. Genitourinary: Denies discharge or frequency. Musculoskeletal: Denies muscle or bone aches. Neurologic: Generalized weakness. Endocrine: Denies shakes or sweats. Oncology: Denies cancers. Dermatologic: Denies rash, itching, pruritus. ALLERGY/immunology: Denies sneezes, rashes. Past Medical History Past Medical History: Cancer Additional Past Medical History / Comment(s): lung mass History of Any Multi-Drug Resistant Organisms: None Reported Past Surgical History: Orthopedic Surgery Additional Past Surgical History / Comment(s): ovary removed Past Anesthesia/Blood Transfusion Reactions: No Reported Reaction Past Psychological History: Depression Smoking Status: Current every day smoker Past Alcohol Use History: Occasional Past Drug Use History: None Reported - Past Family History Sister(s) Family Medical History: Myocardial Infarction (OK) Additional Family Medical History / Comment(s): Sister had a OK at the age of 67yrs. Mother Family Medical History: No Reported History Additional Family Medical History / Comment(s): Mother lived to be 94 yrs old. She was a smoker. Father Family Medical History: Chest Pain / Angina Additional Family Medical History / Comment(s): Father had breathing problems. He lived to be 89yrs old. Medications and Allergies Home Medications Medication Instructions Recorded Confirmed Type DULoxetine HCL [Cymbalta] 30 mg PO DAILY 03/21/22 06/05/22 History busPIRone HCl [Buspar] 10 mg PO BID 03/21/22 06/05/22 History Pantoprazole [Protonix] 40 mg PO BID #60 tab 05/17/22 06/05/22 Rx Fluconazole 100 mg PO DAILY 06/05/22 06/05/22 History Acetaminophen Tab [Tylenol] 650 mg PO Q6HR PRN tab 06/08/22 Rx Cholecalciferol [Vitamin D3 (125 125 mcg PO DAILY tab 06/08/22 Rx Mcg = 5000 Iu)] HYDROcodone/APAP [[place] Elixir 15 ml PO Q8H PRN #135 ml 06/08/22 Rx 7.5-325Mg/15Ml] Metoprolol Tartrate [Lopressor] 12.5 mg PO BID #60 tab 06/08/22 Rx Sennosides-Docusate Sodium 2 each PO HS tab 06/08/22 Rx [Senokot-S] cefUROXime axetiL [Ceftin] 500 mg PO BID 7 Days #14 tab 06/08/22 Rx dronabinoL [Marinol] 2.5 mg PO AC-BID 3 Days #6 cap 06/08/22 Rx polyethylene glycoL 3350 [Miralax] 17 gm PO DAILY packet 06/08/22 Rx Allergies Allergy/AdvReac Type Severity Reaction Status Date / Time egg AdvReac Unknown Verified 06/05/22 16:33 Physical Exam Vitals: Vital Signs Temp Pulse Resp BP Pulse Ox 06/08/22 12:53 98.1 F 92 17 90/59 96 06/08/22 10:31 98.3 F 113 H 14 88/57 91 L 06/08/22 07:14 97.7 F 95 16 117/73 94 L 06/08/22 04:15 98.1 F 98 16 121/83 91 L 06/07/22 19:20 97.9 F 119 H 16 104/74 93 L Intake and Output 06/07/22 06/08/22 06/08/22 22:59 06:59 14:59 Intake Total 160 Output Total 1 Balance 159 Intake: Oral 160 Output: Stool 1 Other: Voiding Method Toilet # Voids 3 3 # Bowel Movements 1 Weight 35.5 kg Skin: Intact, appears older than stated age. General: Thin build and comfortable appearance. Head: Normocephalic, atraumatic. Eyes: Symmetric. Pupils equal round. Ears: Symmetric. Hearing within normal limits. Mouth: Clear. Neck: Supple. Carotid without bruit. Cardiac: Regular rate and rhythm. Lungs: Clear anteriorly and posteriorly. Abdomen: Soft active nontender. Extremities: Normal tone. Neurological: Mental status: Alert, cooperative, pleasant. Cranial nerves: Symmetric facial tone and trapezius. Motor: Active movement all 4 limbs of about antigravity. Sensation: Intact throughout. DTRs: Symmetric and equal throughout. Mobility: Did not attempt to sit or stand. Results CBC & Chem 7: 06/07/22 06:25 06/07/22 06:25 Labs: Microbiology - Last 24 Hours (Table) 06/05/22 20:35 Urine Culture - Final Urine,Clean Catch Escherichia coli Assessment and Plan (1) Small cell lung cancer Current Visit: Yes Status: Acute Code(s): C34.90 - MALIGNANT NEOPLASM OF UNSP PART OF UNSP BRONCHUS OR LUNG SNOMED Code(s): 398685767 (2) UTI (urinary tract infection) Current Visit: Yes Status: Acute Code(s): N39.0 - URINARY TRACT INFECTION, SITE NOT SPECIFIED SNOMED Code(s): 12791123 (3) Antineoplastic chemotherapy induced pancytopenia Current Visit: No Status: Acute Code(s): D61.810 - ANTINEOPLASTIC CHEMOTHERAPY INDUCED PANCYTOPENIA; T45.1X5A - ADVERSE EFFECT OF ANTINEOPLASTIC AND IMMUNOSUP DRUGS, INIT SNOMED Code(s): 501200821796958 (4) Hilar mass Current Visit: No Status: Acute Priority: High Code(s): R91.8 - OTHER NONSPECIFIC ABNORMAL FINDING OF LUNG FIELD SNOMED Code(s): 550230813 Plan: Comments and plan: At this time would require OT note. There would require submission 2 patient insurance which may have criteria with regard inpatient rehab. Patient's diagnosis currently is pulmonary cancer, UTI and pancytopenia. I reviewed discharge summary which indicates plan for subacute rehab and should continue with this effort at this time.
--- NOTE | 2022-06-08 20:37 | P.PN ---
Subjective Progress Note Date: 06/08/22 Principal diagnosis: Limited Stage Small Cell Lung Cancer Long discussion this am with patient and family, she is limited stage lung cancer and at this time chemo on hold due to declining performance Objective - Vital Signs Vital signs: Vital Signs Temp 98.1 F 06/08/22 12:53 Pulse 92 06/08/22 12:53 Resp 17 06/08/22 12:53 BP 90/59 06/08/22 12:53 Pulse Ox 96 06/08/22 12:53 FiO2 Intake & Output 06/08/22 06/08/22 06/09/22 06:59 18:59 06:59 Weight 35.5 kg Other: Voiding Method Toilet # Voids 3 - Exam - Constitutional General appearance: cooperative - EENT Eyes: EOMI ENT: NA/AT - Neck Neck: normal ROM - Respiratory Respiratory: bilateral: diminished, wheezing - Cardiovascular Rhythm: regularly irregular leg Peripheral Edema: bilateral: 2+ - Gastrointestinal General gastrointestinal: soft - Integumentary Integumentary: pale - Musculoskeletal Musculoskeletal: generalized weakness - Labs CBC & Chem 7: 06/07/22 06:25 06/07/22 06:25 Labs: Abnormal Lab Results - Last 24 Hours (Table) 06/07/22 Range/Units 06:25 Ferritin 2555.0 H (10.0-291.0) ng/mL Microbiology - Last 24 Hours (Table) 06/05/22 20:35 Urine Culture - Final Urine,Clean Catch Escherichia coli Assessment and Plan (1) Pneumonia Status: Acute Code(s): J18.9 - PNEUMONIA, UNSPECIFIED ORGANISM SNOMED Code(s): 267857695 (2) Small cell lung cancer Narrative/Plan: Status post cycle 3 last on 05/24/22 for limited stage small cell with concurrent chemo and radiation cisplatin and LEGAL DOCUMENT ASSISTANT 16. Difficult time with side effect profile, appears per office chart not utlizing all recommended supportive care meds. Status: Acute Code(s): C34.90 - MALIGNANT NEOPLASM OF UNSP PART OF UNSP BRONCHUS OR LUNG SNOMED Code(s): 581659112 (3) UTI (urinary tract infection) Narrative/Plan: Culture is negative Status: Acute Code(s): N39.0 - URINARY TRACT INFECTION, SITE NOT SPECIFIED SNOMED Code(s): 24270144 (4) Macrocytic anemia Narrative/Plan: Contributing to current symptms? Work-up placed and replacement of any nutritional factors if need will be given. Ferritin is pending, await results prior to supplementing iron Folate is low/normal B12 adequate Vitmian D Supplemented Status: Acute Code(s): D53.9 - NUTRITIONAL ANEMIA, UNSPECIFIED SNOMED Code(s): 81843744 Plan: Plan is for increased supportive care, hold chemo while in rehab and improved PO intake and stregnth Olanzaprine 2.5mg po HS continued Increase marinol 5mg po BID Incentive spirometer Flaco Protein powder Greater than 30 minutes patient and sister all questions answered Dr. Benson: I have completed the full history and physical and developed the above impression and plan, agree with dictation, dictated as a ascribe
[2022-06-09 10:20] LABS: Methylmalonic Acid 0.13 umol/L (<0.40)
== END 2022-06-08 17:01 | DRG 689 ==
LOC: EC 14:59 → 5NMEDONC 18:01
PROVIDERS: ADMIT Internal Medicine Geriatric Medicine; ATTEND Internal Medicine Geriatric Medicine
PROC: B5181ZA Fluoroscopy of Superior Vena Cava using Low Osmolar Contrast, Guidance (ICD-10-PCS; 2022-06-08)
PROC: B548ZZA Ultrasonography of Superior Vena Cava, Guidance (ICD-10-PCS; 2022-06-08)
PROC: 02HV33Z Insertion of Infusion Device into Superior Vena Cava, Percutaneous Approach (ICD-10-PCS; principal; 2022-06-08 19:30)
DX: N39.0 Urinary tract infection, site not specified (principal); D61.810 Antineoplastic chemotherapy induced pancytopenia; E43 Unspecified severe protein-calorie malnutrition; J18.9 Pneumonia, unspecified organism; C34.90 Malignant neoplasm of unspecified part of unspecified bronchus or lung; I82.210 Acute embolism and thrombosis of superior vena cava; Z68.1 Body mass index [BMI] 19.9 or less, adult; I87.1 Compression of vein; Z16.23 Resistance to quinolones and fluoroquinolones; F33.9 Major depressive disorder, recurrent, unspecified; Z20.822 Contact with and (suspected) exposure to COVID-19; K20.80 Other esophagitis without bleeding; D69.59 Other secondary thrombocytopenia; F17.210 Nicotine dependence, cigarettes, uncomplicated; J43.9 Emphysema, unspecified; T45.1X5A Adverse effect of antineoplastic and immunosuppressive drugs, initial encounter; G89.3 Neoplasm related pain (acute) (chronic); R13.10 Dysphagia, unspecified; D53.9 Nutritional anemia, unspecified; R22.2 Localized swelling, mass and lump, trunk; E83.42 Hypomagnesemia; K59.00 Constipation, unspecified; F41.1 Generalized anxiety disorder; Z71.6 Tobacco abuse counseling; Z91.012 Allergy to eggs; Z79.899 Other long term (current) drug therapy; Z87.440 Personal history of urinary (tract) infections; Z92.3 Personal history of irradiation; Z92.21 Personal history of antineoplastic chemotherapy; Z82.49 Family history of ischemic heart disease and other diseases of the circulatory system; Z81.2 Family history of tobacco abuse and dependence; Z81.1 Family history of alcohol abuse and dependence; Z82.5 Family history of asthma and other chronic lower respiratory diseases; Y84.2 Radiological procedure and radiotherapy as the cause of abnormal reaction of the patient, or of later complication, without mention of misadventure at the time of the procedure
CPT/HCPCS: 36415; 36573; 71046; 80048; 80053; 81001; 82306; 82607; 82728; 82746; 83540; 83550; 83605; 83615; 83735; 83880; 83921; 84425; 84443; 84484; 85025; 85610; 85730; 87077; 87086; 87186; 87635; 93005; 96361; 96365; 96366; 96375; 99285